=== PATIENT | female | born 1960 | race Caucasian/White ===

== ENCOUNTER → 2019-02-12 08:13 | Outpatient (CLI) | payer OTHER, SELFPAY ==
[2019-02-12 09:39] LABS: Add Manual Diff / Slide Review NO; Alanine Aminotransferase 20 IU/L (9-52); Albumin 4.2 g/dL (3.5-5.0); Albumin Globulin Ratio 1.3 (1.0-2.8); Alkaline Phosphatase 78 U/L (38-126); Aspartate Aminotransferase 25 IU/L (14-36); BUN Creatinine Ratio 15.7 (6-22); Basophils Absolute Auto 0 /uL (0-100); Basophils Percent Auto 0.4 % (0-2); Bilirubin Total 0.4 mg/dL (0.2-1.3); Blood Urea Nitrogen 11 mg/dL (7-17); Calcium 9.4 mg/dL (8.4-10.2); Carbon Dioxide 31 mmol/L (22-32); Chloride 102 mmol/L (98-107); Cholesterol 306 mg/dL (140-199); Eosinophils Absolute Auto 100 /uL (0-450); Eosinophils Percent Auto 3.3 % (2-4); Estimated Glomerular Filt Rate > 60.0 mL/min (>60); Globulin 3.3 g/dL (1.7-4.1); Glucose 90 mg/dL (70-100); HDL Cholesterol 72 mg/dL (40-60); HEMOLYSIS < 15 (0-50); Hematocrit 44.5 % (36-46); Hemoglobin 15.3 g/dL (12.0-16.0); LDL Cholesterol Calculated 205 mg/dL (<100); Lymphocytes Absolute Auto 2000 /uL (1100-4500); Lymphocytes Percent Auto 48.2 % (25-40); Mean Corpuscular HGB Conc 34.4 % (30-36); Mean Corpuscular Hemoglobin 31.4 PG (26-34); Mean Corpuscular Volume 91.3 fL (80-100); Monocytes Absolute Auto 300 /uL (0-900); Monocytes Percent Auto 7.3 % (3-14); Neutrophils Absolute Auto 1700 /uL (1500-7000); Neutrophils Percent Auto 40.8 % (50-75); Platelet Count 195 X10^3/uL (150-400); Potassium 3.9 mmol/L (3.4-5.1); Red Blood Cell Count 4.87 X10^6/uL (4.0-5.2); Red Cell Distribution Width 12.6 % (11.6-14.8); Sodium 139 mmol/L (137-145); Total Protein 7.5 g/dL (6.3-8.2); Triglycerides 145 mg/dL (35-150); White Blood Cell Count 4.1 X10^3/uL (4.5-11.0)
[2019-02-12 10:09] LABS: Thyroid Stimulating Hormone 1.63 uIU/mL (0.47-4.68)
== END ==
PROVIDERS: Family Provider Naturopath; PCP Family Medicine
DX: Z13.228 Encounter for screening for other metabolic disorders (principal); Z13.220 Encounter for screening for lipoid disorders; Z13.0 Encounter for screening for diseases of the blood and blood-forming organs and certain disorders involving the immune mechanism; Z13.29 Encounter for screening for other suspected endocrine disorder
CPT/HCPCS: 36415; 80053; 80061; 84443; 85025

== ENCOUNTER → 2019-06-11 07:48 | Outpatient (CLI) | payer OTHER, SELFPAY ==
--- NOTE | 2019-06-11 | DI.MG.S_ITS ---
BILATERAL DIGITAL SCREENING MAMMOGRAM 3D/2D WITH CAD: 06/11/2019 CLINICAL: Routine screening. Comparison is made to exams dated: 09/16/2017 mammogram, 07/09/2015 mammogram, and 06/06/2013 mammogram - [facility]. The tissue of both breasts is heterogeneously dense. This may lower the sensitivity of mammography. Current study was also evaluated with a Computer Aided Detection (CAD) system. No significant masses, calcifications, or other findings are seen in either breast. There has been no significant interval change. IMPRESSION: NEGATIVE There is no mammographic evidence of malignancy. A 1 year screening mammogram is recommended. This exam was interpreted at Station ID: [id number]. NOTE: For mammograms, a report in lay terms will be sent to the patient. Approximately 15% of breast malignancies will not be visualized mammographically. In the management of a palpable breast mass, a negative mammogram must not discourage biopsy of a clinically suspicious lesion. Electronically Signed By: Jeremie duckworth/agatha:06/11/2019 08:50:30 copy to: Jasson Arriaga letter sent: Normal Exam ACR BI-RADS Category 1: Negative [id number]
== END ==
PROVIDERS: Family Provider Naturopath; PCP Family Medicine
DX: Z12.31 Encounter for screening mammogram for malignant neoplasm of breast (principal)
CPT/HCPCS: 77063; 77067

== ENCOUNTER → 2019-08-15 12:54 | Outpatient (CLI) | payer OTHER, SELFPAY ==
--- NOTE | 2019-08-15 12:55 | DI.RAD.S_ITS ---
PROCEDURE: XR LUMBAR SPINE 2-3V INDICATIONS: fall mid lower back pain TECHNIQUE: 3 views of the lumbar spine were acquired. COMPARISON: None. FINDINGS: Bones: 5 [id number]-dhulina vertebrae are present. There is mild to moderate dextroscoliotic bony alignment centered at L2-L3. No vertebral body compression fractures. No suspicious bony lesions. Soft tissues: Overlying bowel gas pattern is normal. No suspicious soft tissue calcifications. IMPRESSION: Mild to moderate dextroscoliosis, no fracture or traumatic subluxation is found. Mild degenerative disc disease and facet osteoarthritis best seen over the middle and lower thirds of the LS spine. Dictated by: Jed Lopez M.D. on 08/15/2019 at 14:00 Approved by: Jed Lopez M.D. on 08/15/2019 at 14:01
--- NOTE | 2019-08-15 12:55 | DI.RAD.S_ITS ---
PROCEDURE: XR THORACIC SPINE 3V INDICATIONS: fall mid lower back pain TECHNIQUE: 3 views of the thoracic spine were acquired. COMPARISON: None. FINDINGS: Bones: No fractures or dislocations. No suspicious bony lesions. 12 pairs of ribs are noted, and appear intact where visualized. Soft tissues: No paravertebral stripe thickening. IMPRESSION: No trauma found. Dictated by: Jed Lopez M.D. on 08/15/2019 at 14:01 Approved by: Jed Lopez M.D. on 08/15/2019 at 14:02
== END ==
PROVIDERS: Family Provider Naturopath; PCP Family Medicine; Visit Provider Family Medicine
DX: M54.5 Low back pain (principal); M41.86 Other forms of scoliosis, lumbar region; M47.816 Spondylosis without myelopathy or radiculopathy, lumbar region; M51.36 Other intervertebral disc degeneration, lumbar region
CPT/HCPCS: 72072; 72100

== ENCOUNTER → 2020-03-06 07:03 | Outpatient (CLI) | payer OTHER, SELFPAY ==
[2020-03-06 08:24] LABS: Add Manual Diff / Slide Review NO; Basophils Absolute Auto 0 /uL (0-100); Basophils Percent Auto 0.7 % (0-2); Eosinophils Absolute Auto 200 /uL (0-450); Eosinophils Percent Auto 3.6 % (2-4); Hematocrit 43.3 % (36-46); Hemoglobin 14.9 g/dL (12.0-16.0); Lymphocytes Absolute Auto 2100 /uL (1100-4500); Lymphocytes Percent Auto 45.8 % (25-40); Mean Corpuscular HGB Conc 34.4 % (30-36); Mean Corpuscular Hemoglobin 31.2 PG (26-34); Mean Corpuscular Volume 90.9 fL (80-100); Monocytes Absolute Auto 300 /uL (0-900); Monocytes Percent Auto 7.6 % (3-14); Neutrophils Absolute Auto 1900 /uL (1500-7000); Neutrophils Percent Auto 42.3 % (50-75); Platelet Count 186 X10^3/uL (150-400); Red Blood Cell Count 4.76 X10^6/uL (4.0-5.2); Red Cell Distribution Width 13.2 % (11.6-14.8); White Blood Cell Count 4.5 X10^3/uL (4.5-11.0)
[2020-03-06 08:31] LABS: Alanine Aminotransferase 35 IU/L (<35); Albumin 4.4 g/dL (3.5-5.0); Albumin Globulin Ratio 1.4 (1.0-2.8); Alkaline Phosphatase 80 U/L (38-126); Aspartate Aminotransferase 35 IU/L (14-36); BUN Creatinine Ratio 13.9 (6-22); Bilirubin Total 0.7 mg/dL (0.2-1.3); Blood Urea Nitrogen 11 mg/dL (7-17); Calcium 9.6 mg/dL (8.4-10.2); Carbon Dioxide 31 mmol/L (22-32); Chloride 102 mmol/L (98-107); Cholesterol 307 mg/dL (140-199); Estimated Glomerular Filt Rate > 60.0 mL/min (>60); Globulin 3.1 g/dL (1.7-4.1); Glucose 87 mg/dL (80-110); HDL Cholesterol 69 mg/dL (40-60); HEMOLYSIS < 15 (0-50); LDL Cholesterol Calculated 217 mg/dL (<100); Potassium 4.1 mmol/L (3.4-5.1); Sodium 139 mmol/L (137-145); Total Protein 7.5 g/dL (6.3-8.2); Triglycerides 107 mg/dL (35-150)
[2020-03-06 09:13] LABS: Thyroid Stimulating Hormone 2.15 uIU/mL (0.47-4.68)
== END ==
PROVIDERS: Family Provider Naturopath; PCP Family Medicine
DX: Z13.228 Encounter for screening for other metabolic disorders (principal); Z13.220 Encounter for screening for lipoid disorders; Z13.0 Encounter for screening for diseases of the blood and blood-forming organs and certain disorders involving the immune mechanism; Z13.29 Encounter for screening for other suspected endocrine disorder
CPT/HCPCS: 36415; 80053; 80061; 84443; 85025

== ENCOUNTER → 2020-09-29 13:40 | Outpatient (CLI) | payer OTHER, SELFPAY ==
[2020-09-29] MEDS: COVID-19 VACC, Ad26(JANSSEN)/PF 0.5 ML IM (13:55)
== END ==
PROVIDERS: Family Provider Naturopath; PCP Family Medicine; Visit Provider Internal Medicine
DX: Z23 Encounter for immunization (principal)
CPT/HCPCS: 0031A; 91303

== ENCOUNTER → 2021-08-21 07:33 | Outpatient (CLI) | payer OTHER, SELFPAY ==
[2021-08-21 08:29] LABS: Influenza A - CEPHEID Flu A NEGATIVE (NEGATIVE); Influenza B - CEPHEID Flu B NEGATIVE (NEGATIVE)
[2021-08-21 08:30] LABS: COVID-19 CEPHEID PCR (VTM/NP) Negative (Negative)
== END ==
PROVIDERS: Family Provider Naturopath; PCP Family Medicine; Visit Provider Physician Assistant
DX: Z20.822 Contact with and (suspected) exposure to COVID-19 (principal); R51.9 Headache, unspecified; R68.83 Chills (without fever)
CPT/HCPCS: 0240U

== ENCOUNTER → 2021-12-24 07:54 | Outpatient (CLI) | payer OTHER, SELFPAY ==
--- NOTE | 2021-12-24 07:56 | DI.MG.S_ITS ---
BILATERAL DIGITAL SCREENING MAMMOGRAM 3D/2D WITH CAD: 12/24/2021 CLINICAL: Routine screening. Comparison is made to exams dated: 06/11/2019 mammogram, 09/16/2017 mammogram, 07/09/2015 mammogram, and 06/06/2013 mammogram - [facility]. There are scattered fibroglandular elements in both breasts. Current study was also evaluated with a Computer Aided Detection (CAD) system. There are benign post operative findings in the right breast. No significant masses, calcifications, or other findings are seen in either breast. There has been no significant interval change. IMPRESSION: BENIGN There is no mammographic evidence of malignancy. A 1 year screening mammogram is recommended. This exam was interpreted at Station ID: [id number]. NOTE: For mammograms, a report in lay terms will be sent to the patient. Approximately 15% of breast malignancies will not be visualized mammographically. In the management of a palpable breast mass, a negative mammogram must not discourage biopsy of a clinically suspicious lesion. Electronically Signed By: Ayaan hernández/agatha:12/24/2021 09:40:25 copy to: Jasson Arriaga letter sent: Normal Exam ACR BI-RADS Category 2: Benign Finding(s) [id number]
== END ==
PROVIDERS: Family Provider Naturopath; PCP Family Medicine; Referring Provider Family Medicine; Visit Provider Family Medicine
DX: Z12.31 Encounter for screening mammogram for malignant neoplasm of breast (principal)
CPT/HCPCS: 77063; 77067

== ENCOUNTER → 2022-09-29 | Outpatient (CLI) | payer OTHER, SELFPAY ==
--- NOTE | 2022-09-29 | DI.NM.S_ITS ---
PROCEDURE: NM PET CT FUSION SKULL 2 THIGH RADIOPHARMACEUTICAL: 12.67 mCi F-18 fluorodeoxyglucose IV. INDICATIONS: STAGING ANAL CA TECHNIQUE: After intravenous administration of F-18 fluoro-deoxyglucose (FDG), noncontrast CT images were obtained for attenuation correction and anatomic localization. A series of overlapping emission PET images was then obtained. The patient's pretest fasting blood glucose level as measured by glucometer was 106 mg/dl. The area imaged spanned from the skull base, vertex to the upper thighs. COMPARISON: [facility], , MRI PELVIS W/WO CONTRAST, 09/09/2022, 14:07. [facility], , CT THORAX/ ABD/ PELVIS WITH CONTRAST, 09/09/2022, 13:33. FINDINGS: Head and neck: No soft tissue masses in the neck. No enlarged cervical or supraclavicular lymph nodes; no abnormal jose tracer uptake. Salivary glands appear normal. Left thyroid lobe demonstrates area of low attenuation and calcification. Sinuses and mastoids are clear. Thorax: No enlarged mediastinal, hilar, or axillary lymph nodes. No abnormal jose tracer uptake. No acute pulmonary opacities. No pleural effusions or pneumothorax. Heart size is normal. Trace pericardial effusion. Abdomen and pelvis: No enlarged retroperitoneal or mesenteric lymph nodes. No abnormal jose tracer uptake. There is normal heterogeneous hepatic tracer uptake. Liver is normal in size, without focal masses. The spleen is normal in size. Gallbladder is unremarkable. Pancreas is normal in morphology. No adrenal nodules. Kidneys are normal in size, without nephrolithiasis. There is mild right hydronephrosis and hydroureter. Small and large intestines are nonobstructive. Previously identified mass at the anal verge is not as well characterized on noncontrast exam. It is hypermetabolic with SUV maximum of 14.6. Colonic diverticular are present without inflammatory change. There is a hiatal hernia with a focus of increased metabolic activity, SUV maximum 5.0 Fat containing ventral hernia. Aorta and inferior vena cava are normal in size. No free fluid or air. No pelvic or inguinal adenopathy. Bladder wall is diffusely thickened and incompletely distended Bones: No abnormal osseous tracer uptake. No lytic or blastic bony lesions. IMPRESSION: Ill-defined mass of the anus with hypermetabolic activity as above consistent with known malignancy. No associated metastatic adenopathy. Mild hiatal hernia with focus of increased metabolic activity measuring 5.0. No distinct visualized mass. However, exam is limited without contrast. Further evaluation with endoscopy or upper GI is recommended to exclude underlying mass. Dictated by: Lary Boyd M.D. on 09/29/2022 at 10:43 Approved by: Lary Boyd M.D. on 09/29/2022 at 11:22
== END ==
LOC: DI 07:10
PROVIDERS: Family Provider Naturopath; PCP Family Medicine; Referring Provider Radiology Radiation Oncology; Visit Provider Radiology Radiation Oncology

== ENCOUNTER → 2022-11-19 14:41 | Outpatient (CLI) | payer OTHER, SELFPAY ==
[2022-11-19 20:47] LABS: Appearance Urine UA SL CLOUDY; Bilirubin Urine UA NEGATIVE (NEGATIVE); Color Urine UA YELLOW; Glucose Urine UA NEGATIVE (Negative); Ketones Urine UA 1+ (NEGATIVE); Leukocyte Esterase Urine UA 3+ (NEGATIVE); Nitrite Urine UA POSITIVE (Negative); Occult Blood Urine UA 3+ (Negative); Protein Urine UA 1+ (Negative); Urobilinogen Urine UA 0.2 E.U./dL (0.2)
[2022-11-19 20:55] LABS: Bacteria Urine Moderate (10-30); Culture Indicated Urine Specimen Cultured; RBC Urine 30-100/HPF (0-5/HPF); Squamous Epithelial Cell Urine 1-5 /HPF (0-5/HPF); WBC Urine 30-100/HPF (0-5/HPF)
== END ==
PROVIDERS: Family Provider Naturopath; PCP Family Medicine; Referring Provider Radiology Therapeutic Radiology; Visit Provider Radiology Therapeutic Radiology
DX: C21.0 Malignant neoplasm of anus, unspecified (principal); R30.0 Dysuria
CPT/HCPCS: 81001; 87077; 87086; 87186

== ENCOUNTER 2022-11-23 15:07 | Inpatient (IN) | payer OTHER, SELFPAY ==
[2022-11-23] VITALS (10 sets, daily range): BP systolic 118–160; BP diastolic 55–77; PULSE 77–127; RESP 18–19; TEMP 36.8–37.5; O2SAT 93–99; BMI 23.4
--- NOTE | 2022-11-23 15:28 | DI.RAD.S_ITS ---
PROCEDURE: XR CHEST 1V INDICATIONS: suspected sepsis TECHNIQUE: One view of the chest was acquired. COMPARISON: None. FINDINGS: Surgical changes and devices: Right chest wall port catheter, tip of which is in the mid SVC. Lungs and pleura: Lungs are clear. No pleural effusions or pneumothorax. Mediastinum: Mediastinal contours appear normal. Heart size is normal. Bones and chest wall: No suspicious bony lesions. Overlying soft tissues appear unremarkable. IMPRESSION: No acute process. Dictated by: Abhinav Dill M.D. on 11/23/2022 at 16:04 Approved by: Abhinav Dill M.D. on 11/23/2022 at 16:04
--- NOTE | 2022-11-23 16:28 | ED.FEVER ---
HPI - Fever General Chief Complaint: Fever Stated Complaint: Has cancer, labs showed infection, needs antibioti Time Seen by Provider: 11/23/22 15:39 Source: patient and family Mode of arrival: Ambulatory History of Present Illness HPI Narrative: Patient is a 62-year-old female currently undergoing radiation therapy for anal cancer presents today multidrug resistant UTI. She has been having some painful frequent urination out patient urinalysis was done which does show E coli and Pseudomonas with resistance to penicillins. She has had low-grade fever she is mildly tachycardic. She denies any cough abdominal pain nausea or vomiting. She reports that she is had 31 treatments of radiation she is due for her last and final treatment tomorrow. She is being followed by [facility]. Related Data Home Medications Medication Instructions Recorded Confirmed lorazepam 0.5 mg tablet 0.5 mg PO Q6HR 11/23/22 11/23/22 oxycodone 10 mg tablet,crush 10 mg PO BID 11/23/22 11/23/22 resistant,extended release 12 hr (OxyContin) oxycodone 5 mg tablet 10 mg PO Q4-6H 11/23/22 11/23/22 sulfamethoxazole 800 1 tab PO BID 11/23/22 11/23/22 mg-trimethoprim 160 mg tablet Allergies Allergy/AdvReac Type Severity Reaction Status Date / Time erythromycin base Allergy Severe heart Verified 11/23/22 15:26 [ERYTHROMYCIN BASE] racing, SOB ciprofloxacin [From Cipro] AdvReac Severe tendon Verified 11/23/22 15:27 inflammation Review of Systems Review of Systems ROS Unobtainable: All systems reviewed & are unremarkable except as noted in HPI and below Patient History Medical History Chicken pox (~1966) Foot pain (~1993) Kidney stones Surgical History Status post dilation and curettage (~1981) Status post dilation and curettage (~1988) Family History Father Heart disease Hypertension Mother Skin cancer Social History marital status: Smoking Status: Never smoker alcohol intake: current (ON OCCASION ) substance use type: does not use Smoking Status: Never smoker alcohol intake frequency: other Substance Use Type: does not use Exam Initial Vital Signs Initial Vital Signs: Vital Signs Temperature 99.5 F 11/23/22 15:20 Pulse Rate 127 H 11/23/22 15:20 Respiratory Rate 18 11/23/22 15:20 Blood Pressure 152/70 H 11/23/22 15:20 Pulse Oximetry 97 11/23/22 15:20 Oxygen Delivery Method Room Air 11/23/22 15:20 GENERAL: Alert slightly anxious 62-year-old female HEENT: Head atraumatic,EOMI, pupils reactive, face symmetric, moist mucous membranes CARDIOVASCULAR: Tachycardic regular no murmurs RESPIRATORY: Breath sounds equal bilaterally, no wheezes rales or rhonchi. ABDOMEN: Soft, nontender. Normoactive bowel sounds all 4 quadrants. No guarding or rebound. EXTREMITIES: Normal range of motion, no clubbing or edema. Neurovascularly intact NEUROLOGICAL: Alert and oriented x4.Normal gait and speech. SKIN: Warm, dry, no laceration, no petechiae, no rashes or lesions. Course Orders Ordered: ED Orders 11/23/22 15:28 XR chest 1V Stat EKG-12 Lead Stat 11/23/22 16:49 Complete Blood Count AUTO DIFF Stat Comprehensive Metabolic Panel Stat Lactate (Lactic Acid) Stat Lipase Stat PTT Partial Thromboplastin Marquis Stat Procalcitonin Stat Prothrombin Time INR Stat 11/23/22 16:56 Blood Culture Stat 11/23/22 18:57 Urinalysis and Microscopic Stat 11/24/22 05:00 BMP [Basic Metabolic Panel] DAILY CBC Auto Diff [Complete Blood Count AUTO DIFF] DAILY 11/25/22 05:00 BMP [Basic Metabolic Panel] DAILY CBC Auto Diff [Complete Blood Count AUTO DIFF] DAILY 11/26/22 05:00 BMP [Basic Metabolic Panel] DAILY CBC Auto Diff [Complete Blood Count AUTO DIFF] DAILY Acetaminophen (Acetaminophen 325 Mg Tablet) 650 mg PO Q6H PRN PRN Reason: Fever/Mild Pain (1-3) Enoxaparin Sodium (Enoxaparin 40 Mg/0.4 Ml Syringe) 40 mg SUBCUT DAILY GER Cefepime HCl 2 gm/ Sodium (Chloride) 100 mls @ 200 mls/hr IV Q12H GER Lorazepam (Lorazepam 0.5 Mg Tablet) 0.5 mg PO Q6HR PRN PRN Reason: anxiety Melatonin (Melatonin 3 Mg Tablet) 6 mg PO BEDTIME PRN PRN Reason: Insomnia Naloxone HCl (Naloxone 0.4 Mg/Ml Vial) 0.2 mg IV Q2MIN PRN PRN Reason: Opiate Reversal Ondansetron HCl (Ondansetron 4 Mg Odt) 4 mg SL NOW PRN PRN Reason: Nausea And Vomiting Ondansetron HCl (Ondansetron 4 Mg/2 Ml Inj) 4 mg IV NOW PRN PRN Reason: Nausea And Vomiting Oxycodone HCl (Oxycodone Ir 10 Mg Tablet) 10 mg PO Q4H PRN PRN Reason: Pain, Severe (7-10) Oxycodone HCl (Oxycodone Er 10 Mg Tab) 10 mg PO Q12H GER Polyethylene Glycol (Polyethylene Glycol 3350 17 Gm Powd.Pack) 17 gm PO DAILY PRN PRN Reason: Constipation Sennosides (Sennosides 8.6 Mg Tablet) 8.6 mg PO BID PRN PRN Reason: Constipation Discontinued Medications Sodium Chloride (Normal Saline 0.9%) 1,000 mls @ 1,000 mls/hr IV BOLUS ONE Stop: 11/23/22 16:27 Last Infusion: 11/23/22 19:00 Dose: 0 mls/hr Documented By: Admin: 11/23/22 17:32 Dose: 1,000 mls/hr Documented By: WILLOW Cefepime HCl 2 gm/ Sodium (Chloride) 100 mls @ 200 mls/hr IV NOW ONE Stop: 11/23/22 16:29 Last Infusion: 11/23/22 18:58 Dose: 0 mls/hr Documented By: Admin: 11/23/22 17:40 Dose: 200 mls/hr Documented By: SPF Ertapenem 0.5 gm/ Sodium (Chloride) 100 mls @ 200 mls/hr IV NOW ONE Stop: 11/23/22 18:15 Ertapenem 1 gm/ Sodium (Chloride) 100 mls @ 200 mls/hr IV NOW ONE Stop: 11/23/22 18:16 Lidocaine (Lidocaine 5% Oint 35 Gm) 1 applic TOP NOW ONE Stop: 11/23/22 17:13 Last Admin: 11/23/22 17:33 Dose: 1 applic Documented By: WILLOW Lorazepam (Lorazepam 0.5 Mg Tablet) 0.5 mg PO NOW ONE Stop: 11/23/22 16:38 Last Admin: 11/23/22 17:05 Dose: 0.5 mg Documented By: WILLOW Potassium Chloride (Potassium Chloride 20 Meq Tab) 40 meq PO NOW ONE Stop: 11/23/22 18:56 Vital Signs Vital signs: Vital Signs - 8 hr 11/23/22 15:20 11/23/22 16:51 11/23/22 17:03 Temperature 99.5 F Pulse Rate 127 H 90 77 Respiratory Rate 18 Blood Pressure 152/70 H Pulse Oximetry 97 97 93 Oxygen Delivery Method Room Air 11/23/22 17:30 11/23/22 17:36 11/23/22 17:36 Temperature Pulse Rate 103 H 106 H Respiratory Rate Blood Pressure 155/77 H Pulse Oximetry 98 99 Oxygen Delivery Method Room Air MDM - Fever Lab Data 11/23/22 16:49 11/23/22 16:49 Labs: Lab Results 11/23/22 11/23/22 11/23/22 Range/Units 16:49 16:49 16:49 WBC 2.3 L (4.5-11.0) X10^3/uL RBC 3.66 L (4.0-5.2) X10^6/uL Hgb 11.9 L (12.0-16.0) g/dL Hct 33.7 L (36-46) % MCV 92.2 (80-100) fL MCH 32.6 (26-34) PG MCHC 35.4 (30-36) % RDW 18.5 H (11.6-14.8) % Plt Count 253 (150-400) X10^3/uL Neut % (Auto) 58.5 (50-75) % Lymph % (Auto) 15.1 L (25-40) % [place] % (Auto) 23.0 H (3-14) % Eos % (Auto) 3.1 (2-4) % Baso % (Auto) 0.3 (0-2) % Neut # (Auto) 1300 L (7563-3210) /uL Lymph # (Auto) 300 L (1812-7809) /uL [place] # (Auto) 500 (0-900) /uL Eos # (Auto) 100 (0-450) /uL Baso # (Auto) 0 (0-100) /uL PT 12.5 (10.1-12.7) SECONDS INR 1.1 (0.9-1.3) APTT 32 (26-36) SECONDS Sodium 132 L (137-145) mmol/L Potassium 3.4 (3.4-5.1) mmol/L Chloride 99 (98-107) mmol/L Carbon Dioxide 25 (22-32) mmol/L BUN 5 L (7-17) mg/dL Creatinine 0.74 (0.52-1.04) mg/dL Estimated GFR > 60 (>60) mL/min BUN/Creatinine Ratio 6.8 (6-22) Glucose 96 (80-110) mg/dL Lactate (0.7-2.1) mmol/L Calcium 8.7 (8.4-10.2) mg/dL Total Bilirubin 0.4 (0.2-1.3) mg/dL AST 28 (14-36) IU/L ALT 28 (<35) IU/L Alkaline Phosphatase 68 (38-126) U/L Total Protein 6.6 (6.3-8.2) g/dL Albumin 3.7 (3.5-5.0) g/dL Globulin 2.9 (1.7-4.1) g/dL Albumin/Globulin Ratio 1.3 (1.0-2.8) Lipase 36 (23-300) U/L Procalcitonin 0.04 (<0.5) ng/mL 11/23/22 Range/Units 16:49 WBC (4.5-11.0) X10^3/uL RBC (4.0-5.2) X10^6/uL Hgb (12.0-16.0) g/dL Hct (36-46) % MCV (80-100) fL MCH (26-34) PG MCHC (30-36) % RDW (11.6-14.8) % Plt Count (150-400) X10^3/uL Neut % (Auto) (50-75) % Lymph % (Auto) (25-40) % [place] % (Auto) (3-14) % Eos % (Auto) (2-4) % Baso % (Auto) (0-2) % Neut # (Auto) (9771-3196) /uL Lymph # (Auto) (8355-7097) /uL [place] # (Auto) (0-900) /uL Eos # (Auto) (0-450) /uL Baso # (Auto) (0-100) /uL PT (10.1-12.7) SECONDS INR (0.9-1.3) APTT (26-36) SECONDS Sodium (137-145) mmol/L Potassium (3.4-5.1) mmol/L Chloride (98-107) mmol/L Carbon Dioxide (22-32) mmol/L BUN (7-17) mg/dL Creatinine (0.52-1.04) mg/dL Estimated GFR (>60) mL/min BUN/Creatinine Ratio (6-22) Glucose (80-110) mg/dL Lactate 1.4 (0.7-2.1) mmol/L Calcium (8.4-10.2) mg/dL Total Bilirubin (0.2-1.3) mg/dL AST (14-36) IU/L ALT (<35) IU/L Alkaline Phosphatase (38-126) U/L Total Protein (6.3-8.2) g/dL Albumin (3.5-5.0) g/dL Globulin (1.7-4.1) g/dL Albumin/Globulin Ratio (1.0-2.8) Lipase (23-300) U/L Procalcitonin (<0.5) ng/mL Imaging Data Chest x-ray: Radiologist's Impression: PROCEDURE:? XR CHEST 1V ? INDICATIONS:? suspected sepsis ? TECHNIQUE:? One view of the chest was acquired.? ? COMPARISON:? None. ? FINDINGS:? ? Surgical changes and devices:? Right chest wall port catheter, tip of which is in the mid SVC. ? Lungs and pleura:? Lungs are clear.? No pleural effusions or pneumothorax.? ? Mediastinum:? Mediastinal contours appear normal.? Heart size is normal.? ? Bones and chest wall:? No suspicious bony lesions.? Overlying soft tissues appear unremarkable.? ? IMPRESSION:? No acute process. ? ? Dictated by: Abhinav Dill M.D. on 11/23/2022 at 16:04 ? ? ECG Data Interpretation: Normal sinus rhythm rate 97 MD interval 150 QRS 76 QTC 452 sinus arrhythmia PAC noted no ST changes no priors to compare MDM Narrative Medical decision making narrative: The patient currently undergoing cancer treatment radiation for anal cancer. Mildly leukopenic with WBC count of 2.3 but not neutropenic. She is tachycardic but not hypotensive with low-grade temperature of 99.5?. She has a known UTI with symptoms of UTI. Both Pseudomonas and E coli. Would benefit from admission and IV antibiotics no sign of severe sepsis at this time. Patient and support friend quite adamant about getting all her medications and consulting her oncologist I spoke personally with ([phone]), he agreed with admission IV cefepime. Would like patient to finish her last dose of radiation this week if possible. He is happy to help coordinate outpatient IV antibiotics however at this agrees that admission is likely easiest and best for the patient The patient is agreeable to this plan. Discussion with hospitalist. Recommends ertapenem it is Q 24 hours rather than cefe[address] Dr[address] Garcia accepts patient Discharge Plan Departure Patient Disposition: Admitted as Observation Clinical Impression: UTI (urinary tract infection) Prescriptions: No Action sulfamethoxazole-trimethoprim 800-160 mg tablet 1 tab PO BID lorazepam 0.5 mg tablet 0.5 mg PO Q6HR oxycodone 5 mg tablet 10 mg PO Q4-6H oxycodone [OxyContin] 10 mg tablet,oral only,ext.rel.12 hr 10 mg PO BID Referrals: Camilla Burt PA-C [Primary Care Provider] -
[2022-11-23 17:05] LABS: Add Manual Diff / Slide Review NO; Basophils Absolute Auto 0 /uL (0-100); Basophils Percent Auto 0.3 % (0-2); Eosinophils Absolute Auto 100 /uL (0-450); Eosinophils Percent Auto 3.1 % (2-4); Hematocrit 33.7 % (36-46); Hemoglobin 11.9 g/dL (12.0-16.0); Lymphocytes Absolute Auto 300 /uL (1100-4500); Lymphocytes Percent Auto 15.1 % (25-40); Mean Corpuscular HGB Conc 35.4 % (30-36); Mean Corpuscular Hemoglobin 32.6 PG (26-34); Mean Corpuscular Volume 92.2 fL (80-100); Monocytes Absolute Auto 500 /uL (0-900); Neutrophils Absolute Auto 1300 /uL (1500-7000); Neutrophils Percent Auto 58.5 % (50-75); Platelet Count 253 X10^3/uL (150-400); Red Blood Cell Count 3.66 X10^6/uL (4.0-5.2); Red Cell Distribution Width 18.5 % (11.6-14.8); White Blood Cell Count 2.3 X10^3/uL (4.5-11.0)
[2022-11-23] MEDS: LORazepam 0.5 MG TABLET PO (17:05)
[2022-11-23 17:12] LABS: INR 1.1 (0.9-1.3); Prothrombin Time 12.5 SECONDS (10.1-12.7)
[2022-11-23 17:14] LABS: PTT Partial Thromboplastin Tim 32 SECONDS (26-36)
[2022-11-23 17:18] LABS: Lactate (Lactic Acid) 1.4 mmol/L (0.7-2.1)
[2022-11-23 17:19] LABS: Alanine Aminotransferase 28 IU/L (<35); Albumin 3.7 g/dL (3.5-5.0); Albumin Globulin Ratio 1.3 (1.0-2.8); Alkaline Phosphatase 68 U/L (38-126); Aspartate Aminotransferase 28 IU/L (14-36); BUN Creatinine Ratio 6.8 (6-22); Bilirubin Total 0.4 mg/dL (0.2-1.3); Blood Urea Nitrogen 5 mg/dL (7-17); Calcium 8.7 mg/dL (8.4-10.2); Carbon Dioxide 25 mmol/L (22-32); Chloride 99 mmol/L (98-107); Estimated Glomerular Filt Rate > 60 mL/min (>60); Globulin 2.9 g/dL (1.7-4.1); Glucose 96 mg/dL (80-110); HEMOLYSIS < 15 (0-50); Lipase 36 U/L (23-300); Potassium 3.4 mmol/L (3.4-5.1); Sodium 132 mmol/L (137-145); Total Protein 6.6 g/dL (6.3-8.2)
[2022-11-23] MEDS: SODIUM CHLORIDE 0.9% 1,000 ML 1000 ML IV (17:32)
[2022-11-23] MEDS: LIDOCAINE 5% OINT 35 GM 1 APPLIC TOP (17:33)
[2022-11-23 17:35] LABS: Procalcitonin 0.04 ng/mL (<0.5)
[2022-11-23] MEDS: CEFEPIME 2 GM in SODIUM CHLORIDE 0.9% 100 ML IV (17:40)
--- NOTE | 2022-11-23 19:02 | P.HP_ITS ---
History of Present Illness History of Present Illness Date Patient Seen: 11/23/22 Time Patient Seen: 19:02 Chief complaint: Has cancer, labs showed infection, needs antibioti Narrative: Tami Dickinson is a 62-year-old female with past medical history of anal cancer undergoing radiation treatments who was sent in by her oncologist for pseudomonal UTI. Patient notes she is been having dysuria for several days which prompted her oncologist to get a UA which showed pyuria and culture growing E coli and Pseudomonas. Pseudomonas susceptible to quinolones however p atient had tendinopathy in the past with one dose of cipro. Patient states she was supposed to get her last radiation treatment tomorrow. Patient currently denies fevers/chills, NV, CP, SOB, abd pain or diarrhea. [facility] Medical History Chicken pox (~1966) Foot pain (~1993) Kidney stones Surgical History Status post dilation and curettage (~1981) Status post dilation and curettage (~1988) Family History Father Heart disease Hypertension Mother Skin cancer Social History marital status: Smoking Status: Never smoker alcohol intake: current (ON OCCASION ) substance use type: does not use Meds Home Medications and Allergies Home Medications Medication Instructions Recorded Confirmed Type lorazepam 0.5 mg tablet 0.5 mg PO Q6HR 11/23/22 11/23/22 History oxycodone 10 mg tablet,crush 10 mg PO BID 11/23/22 11/23/22 History resistant,extended release 12 hr (OxyContin) oxycodone 5 mg tablet 10 mg PO Q4-6H 11/23/22 11/23/22 History sulfamethoxazole 800 1 tab PO BID 11/23/22 11/23/22 History mg-trimethoprim 160 mg tablet Allergies Allergy/AdvReac Type Severity Reaction Status Date / Time erythromycin base Allergy Severe heart Verified 11/23/22 15:26 [ERYTHROMYCIN BASE] racing, SOB ciprofloxacin [From Cipro] AdvReac Severe tendon Verified 11/23/22 15:27 inflammation Review of Systems Review of Systems Narrative: All other systems reviewed with the patient and are negative unless otherwise stated. Exam Vital Signs (past 8 hours): - 11/23/22 15:20 11/23/22 16:51 11/23/22 17:03 Temperature 99.5 F Pulse Rate 127 H 90 77 Respiratory Rate 18 Blood Pressure 152/70 H Pulse Oximetry 97 97 93 Oxygen Delivery Method Room Air 11/23/22 17:30 11/23/22 17:36 11/23/22 17:36 Temperature Pulse Rate 103 H 106 H Respiratory Rate Blood Pressure 155/77 H Pulse Oximetry 98 99 Oxygen Delivery Method Room Air Oxygen Delivery Method Room Air Narrative Exam Narrative: GEN: no acute distress HEENT: moist mucous membranes, PERRL NECK: trachea midline, no JVD CV: regular rate and rhythm, no murmurs PULM: clear bilaterally ABD: soft, nontender, nondistended, no organomegaly EXT: warm and well perfused with no edema NEURO: awake, alert, oriented, no focal deficits Objective Labs 11/23/22 16:49 11/23/22 16:49 Labs: Laboratory Results - last 24 hr 11/23/22 11/23/22 11/23/22 16:49 16:49 16:49 WBC 2.3 L RBC 3.66 L Hgb 11.9 L Hct 33.7 L MCV 92.2 MCH 32.6 MCHC 35.4 RDW 18.5 H Plt Count 253 Neut % (Auto) 58.5 Lymph % (Auto) 15.1 L [place] % (Auto) 23.0 H Eos % (Auto) 3.1 Baso % (Auto) 0.3 Neut # (Auto) 1300 L Lymph # (Auto) 300 L [place] # (Auto) 500 Eos # (Auto) 100 Baso # (Auto) 0 PT 12.5 INR 1.1 APTT 32 Sodium 132 L Potassium 3.4 Chloride 99 Carbon Dioxide 25 BUN 5 L Creatinine 0.74 Estimated GFR > 60 BUN/Creatinine Ratio 6.8 Glucose 96 Lactate Calcium 8.7 Total Bilirubin 0.4 AST 28 ALT 28 Alkaline Phosphatase 68 Total Protein 6.6 Albumin 3.7 Globulin 2.9 Albumin/Globulin Ratio 1.3 Lipase 36 Procalcitonin 0.04 11/23/22 16:49 WBC RBC Hgb Hct MCV MCH MCHC RDW Plt Count Neut % (Auto) Lymph % (Auto) [place] % (Auto) Eos % (Auto) Baso % (Auto) Neut # (Auto) Lymph # (Auto) [place] # (Auto) Eos # (Auto) Baso # (Auto) PT INR APTT Sodium Potassium Chloride Carbon Dioxide BUN Creatinine Estimated GFR BUN/Creatinine Ratio Glucose Lactate 1.4 Calcium Total Bilirubin AST ALT Alkaline Phosphatase Total Protein Albumin Globulin Albumin/Globulin Ratio Lipase Procalcitonin Assessment & Plan Assessment & Plan narrative: # polymicrobial UTI with pseudomonas -urine culture growing E. coli and pseudomonas -unable to take oral abx due to history of tendinopathy with quinolones -continue cefepime 2g q12h x3 days. Can try to setup outpatient ertapenem 1g daily through [facility]. -no fever/chills, leukocytosis to suggest pyelo -f/u blood cultures # hyponatremia -Na 132 -monitor # rectal cancer -currently on radiation treatments, with last dose scheduled for 11/24 -followed by Dr. Washington oncology -continue oxy 10mg q4h PRN and schedule oxycontin 10mg BID # anxiety -continue ativan po PRN Code status is full code. COVID negative. DVT prophylaxis with Lovenox. Proxy is friend Reyna. I have reviewed home meds and used all available resources to reconcile the home meds. This patient will be admitted as inpatient and will require greater than 2 midnights of hospital time to treat multidrug resistant UTI.
[2022-11-23 20:20] LABS: Appearance Urine UA CLEAR; Bilirubin Urine UA NEGATIVE (NEGATIVE); Color Urine UA YELLOW; Glucose Urine UA NEGATIVE (Negative); Ketones Urine UA NEGATIVE (NEGATIVE); Leukocyte Esterase Urine UA 1+ (NEGATIVE); Nitrite Urine UA NEGATIVE (Negative); Occult Blood Urine UA NEGATIVE (Negative); Protein Urine UA NEGATIVE (Negative); Specific Gravity Urine UA <=1.005 (1.000-1.035); Urobilinogen Urine UA 0.2 E.U./dL (0.2)
[2022-11-23 20:28] LABS: Bacteria Urine Occasional (0-1); Culture Indicated Urine Specimen Cultured; RBC Urine 0-1/HPF (0-5/HPF); Squamous Epithelial Cell Urine 0-1 /HPF (0-5/HPF); Transitional Epi Cells Urine 0-1/HPF (0-5/HPF); WBC Urine 1-5/HPF (0-5/HPF)
[2022-11-23] MEDS: POTASSIUM CHLORIDE 20 MEQ TAB 40 MEQ PO (21:16)
[2022-11-23] MEDS: polyethylene glycoL 3350 17 GM POWD.PACK PO (21:17)
[2022-11-23] MEDS: OXYCODONE IR 10 MG TABLET PO (21:34)
[2022-11-23 23:26] LABS: MRSA (Nasal) PCR Not Detected (Not Detect)
[2022-11-24] MEDS: OXYCODONE IR 10 MG TABLET PO ×6 (02:06→21:49)
[2022-11-24 04:00] VITALS: BP 144/78; PULSE 86; RESP 17; TEMP 36.1; O2SAT 98
[2022-11-24 04:23] VITALS: BP 144/73; PULSE 86; O2SAT 98
[2022-11-24] MEDS: LORazepam 0.5 MG TABLET PO ×4 (04:36→21:49)
[2022-11-24] MEDS: CEFEPIME 2 GM in SODIUM CHLORIDE 0.9% 100 ML IV ×2 (04:38→16:09)
[2022-11-24 05:48] LABS: Hematocrit 30.8 % (36-46); Hemoglobin 10.9 g/dL (12.0-16.0); Mean Corpuscular HGB Conc 35.2 % (30-36); Mean Corpuscular Hemoglobin 32.7 PG (26-34); Mean Corpuscular Volume 92.9 fL (80-100); Platelet Count 237 X10^3/uL (150-400); Red Blood Cell Count 3.32 X10^6/uL (4.0-5.2); Red Cell Distribution Width 18.6 % (11.6-14.8)
[2022-11-24 05:56] LABS: BUN Creatinine Ratio 6.6 (6-22); Blood Urea Nitrogen 5 mg/dL (7-17); Calcium 8.6 mg/dL (8.4-10.2); Carbon Dioxide 28 mmol/L (22-32); Chloride 106 mmol/L (98-107); Estimated Glomerular Filt Rate > 60 mL/min (>60); Glucose 81 mg/dL (80-110); HEMOLYSIS < 15 (0-50); Sodium 137 mmol/L (137-145)
[2022-11-24 06:20] LABS: White Blood Cell Count 1.7 X10^3/uL (4.5-11.0)
[2022-11-24 06:21] LABS: Add Manual Diff / Slide Review YES
--- NOTE | 2022-11-24 06:23 | PC.NURSE ---
Provider notified of critical white blood cell count of 1.7 this morning. No new orders.
--- NOTE | 2022-11-24 06:23 | PC.ADMIT ---
[email or web address] [address] [place] [address] Admission Note: The patient,Tami Dickinson,62 y/o, was given written information regarding hospital policies, unit procedures and contact persons. Patient's smoking status: Never smoker. Vital Signs - 8 hr 11/24/22 04:00 Temperature 97.0 F L Pulse Rate 86 Respiratory Rate 17 Blood Pressure 144/78 H Pulse Oximetry 98 Pt arrived to the unit from the ED. A/Ox4, somewhat forgetful or slow to respond. Lungs clear, on RA. PPP, no edema and VSS. Afebrile. Mobilizes independently. Skin intact. [place] area, specifically near her anus, is very red and excoriated, possibly r/t radiation, possibly a burn. Pt uses a portable sitz bath several times a day and only wipes with a water spray bottle. She was provided a spray bottle type device to use while hospitalized. She brought in her own sitz bath. Denies pain. Uses call light appropriately. Tolerates antibiotics well. Pain managed with current orders.
[2022-11-24 06:56] LABS: Anisocytosis 1+; Neutrophils Absolute Manual 1122 /uL (3000-5900); Nucleated Red Blood Cells 1 #/Diff; Total Cells Counted 100
[2022-11-24] MEDS: OXYCODONE ER 10 MG TAB PO ×2 (07:24→19:30)
[2022-11-24] MEDS: ENOXAPARIN 40 MG/0.4 ML SYRINGE SUBCUT (08:00)
[2022-11-24 08:02] LABS: COVID19 - ADMIT (NP swab/PCR) Negative (Negative)
--- NOTE | 2022-11-24 08:31 | P.PN_ITS ---
Subjective Subjective Interval history: Patient feeling tired today. Spoke with her rad-onc doctor who is rearranging her final radiation dose. Needs 2 more days of IV cefepime which was explained to patient. Exam Vital Signs (past 8 hours): - 11/24/22 04:00 Temperature 97.0 F L Pulse Rate 86 Respiratory Rate 17 Blood Pressure 144/78 H Pulse Oximetry 98 Oxygen Delivery Method Room Air Narrative Exam Narrative: GEN: no acute distress, tired HEENT: moist mucous membranes, PERRL NECK: trachea midline, no JVD CV: regular rate and rhythm, no murmurs PULM: clear bilaterally ABD: soft, nontender, nondistended, no organomegaly EXT: warm and well perfused with no edema NEURO: awake, alert, oriented, no focal deficits Objective Labs 11/24/22 04:27 11/24/22 04:27 Labs: Laboratory Results - last 24 hr 11/23/22 11/23/22 11/23/22 16:49 16:49 16:49 WBC 2.3 L RBC 3.66 L Hgb 11.9 L Hct 33.7 L MCV 92.2 MCH 32.6 MCHC 35.4 RDW 18.5 H Plt Count 253 Neut % (Auto) 58.5 Lymph % (Auto) 15.1 L [place] % (Auto) 23.0 H Eos % (Auto) 3.1 Baso % (Auto) 0.3 Neut # (Auto) 1300 L Lymph # (Auto) 300 L [place] # (Auto) 500 Eos # (Auto) 100 Baso # (Auto) 0 Total Counted Seg Neutrophils % Lymphocytes % (Manual) Atypical Lymphs % Monocytes % (Manual) Eosinophils % (Manual) Neutrophils # (Manual) Nucleated RBCs RBC Morphology Anisocytosis PT 12.5 INR 1.1 APTT 32 Sodium 132 L Potassium 3.4 Chloride 99 Carbon Dioxide 25 BUN 5 L Creatinine 0.74 Estimated GFR > 60 BUN/Creatinine Ratio 6.8 Glucose 96 Lactate Calcium 8.7 Total Bilirubin 0.4 AST 28 ALT 28 Alkaline Phosphatase 68 Total Protein 6.6 Albumin 3.7 Globulin 2.9 Albumin/Globulin Ratio 1.3 Lipase 36 Procalcitonin 0.04 Urine Color Urine Appearance Urine pH Ur Specific [place] Urine Protein Urine Glucose (UA) Urine Ketones Urine Occult Blood Urine Nitrate Urine Bilirubin Urine Urobilinogen Ur Leukocyte Esterase Urine RBC Urine WBC Ur Squamous Epith Cells Ur Transition Epith Cell Urine Bacteria Ur Culture Indicated? Nasal Screen MRSA (PCR) SARS-CoV-2 (PCR) 11/23/22 11/23/22 11/23/22 16:49 17:13 20:20 WBC RBC Hgb Hct MCV MCH MCHC RDW Plt Count Neut % (Auto) Lymph % (Auto) [place] % (Auto) Eos % (Auto) Baso % (Auto) Neut # (Auto) Lymph # (Auto) [place] # (Auto) Eos # (Auto) Baso # (Auto) Total Counted Seg Neutrophils % Lymphocytes % (Manual) Atypical Lymphs % Monocytes % (Manual) Eosinophils % (Manual) Neutrophils # (Manual) Nucleated RBCs RBC Morphology Anisocytosis PT INR APTT Sodium Potassium Chloride Carbon Dioxide BUN Creatinine Estimated GFR BUN/Creatinine Ratio Glucose Lactate 1.4 Calcium Total Bilirubin AST ALT Alkaline Phosphatase Total Protein Albumin Globulin Albumin/Globulin Ratio Lipase Procalcitonin Urine Color Yellow Urine Appearance Clear Urine pH 7.0 Ur Specific [place] <=1.005 Urine Protein Negative Urine Glucose (UA) Negative Urine Ketones Negative Urine Occult Blood Negative Urine Nitrate Negative Urine Bilirubin Negative Urine Urobilinogen 0.2 Ur Leukocyte Esterase 1+ H Urine RBC 0-1/hpf D Urine WBC 1-5/hpf Ur Squamous Epith Cells 0-1 /hpf Ur Transition Epith Cell 0-1/hpf Urine Bacteria Occasional (0-1) Ur Culture Indicated? Specimen cultured Nasal Screen MRSA (PCR) Not detected SARS-CoV-2 (PCR) 11/24/22 11/24/22 11/24/22 04:27 04:27 07:40 WBC 1.7 L* RBC 3.32 L Hgb 10.9 L Hct 30.8 L MCV 92.9 MCH 32.7 MCHC 35.2 RDW 18.6 H Plt Count 237 Neut % (Auto) Not Reportable Lymph % (Auto) Not Reportable [place] % (Auto) Not Reportable Eos % (Auto) Not Reportable Baso % (Auto) Not Reportable Neut # (Auto) Lymph # (Auto) Not Reportable [place] # (Auto) Not Reportable Eos # (Auto) Baso # (Auto) Not Reportable Total Counted 100 Seg Neutrophils % 66.0 Lymphocytes % (Manual) 14.0 L Atypical Lymphs % 1.0 H Monocytes % (Manual) 18.0 H Eosinophils % (Manual) 1.0 L Neutrophils # (Manual) 1122 L Nucleated RBCs 1 H RBC Morphology See below Anisocytosis 1+ H PT INR APTT Sodium 137 Potassium 4.0 Chloride 106 Carbon Dioxide 28 BUN 5 L Creatinine 0.76 Estimated GFR > 60 BUN/Creatinine Ratio 6.6 Glucose 81 Lactate Calcium 8.6 Total Bilirubin AST ALT Alkaline Phosphatase Total Protein Albumin Globulin Albumin/Globulin Ratio Lipase Procalcitonin Urine Color Urine Appearance Urine pH Ur Specific [place] Urine Protein Urine Glucose (UA) Urine Ketones Urine Occult Blood Urine Nitrate Urine Bilirubin Urine Urobilinogen Ur Leukocyte Esterase Urine RBC Urine WBC Ur Squamous Epith Cells Ur Transition Epith Cell Urine Bacteria Ur Culture Indicated? Nasal Screen MRSA (PCR) SARS-CoV-2 (PCR) Negative PFSH Medical History Chicken pox (~1966) Foot pain (~1993) Kidney stones Surgical History Status post dilation and curettage (~1981) Status post dilation and curettage (~1988) Family History Father Heart disease Hypertension Mother Skin cancer Social History marital status: Smoking Status: Never smoker alcohol intake: current substance use type: does not use Assessment & Plan Assessment & Plan narrative: # polymicrobial UTI with pseudomonas and E. coli -urine culture from 11/19 growing E. coli and pseudomonas sensitive to cefepime, repeat urine culture on 11/23 with no growth -unable to take oral abx due to history of tendinopathy with quinolones -continue cefepime 2g q12h x3 days -no fever/chills, leukocytosis to suggest pyelo -f/u blood cultures # hyponatremia, resolved -Na 132 then improved to 137 -monitor # rectal cancer -currently on radiation treatments, with last dose scheduled for 11/24 -followed by Dr. [place] oncology -continue oxy 10mg q4h PRN and schedule oxycontin 10mg BID -rescheduled for final radiation dose on 11/26 # anxiety -continue ativan po PRN Code status is full code. COVID negative. DVT prophylaxis with Lovenox. Proxy is friend Reyna. Dispo: Home on 11/26. Quality VTE Deep Vein Thrombosis/Pulmonary Embolism Present on Admission: No
[2022-11-24] MEDS: SODIUM CHLORIDE 0.9% 1,000 ML 75 ML IV (10:01)
--- NOTE | 2022-11-24 11:52 | CM.DANOTE ---
Addendum entered by CHASE Floyd 11/24/22 14:45: ADD: Assisting CHASE Man w/Justin. Met w/patient, Pharmacist Alem and Dr Garcia in patient's room to review plan. IV abx has been switched to cefepime Q12 and runs through 523 in the AM. Patient is eager to return home but inevitably agreeable to remaining here to complete her abx course Patient's last scheduled radiation treatment is now scheduled for Tuesday afternoon at approx 1400. Patient has a friend that will drive her upon discharge from (after morning dose of IV abx) Plan: Discharge home Tuesday AM, RN Chaparro and Dr Garcia aware of plan, [facility] Tuesday No addtl needs expected from this CM team. Will continue to follow closely CHASE Kaba Original Note: DCP: CM team entered room and introduced self and role. Patient appeared A/Ox4. Patient was accompanied by friend/caregiver, Reyna León (SCOOTER). Patient is here for IV antibiotics for an infection. Patient reports being independent with ADLs and utilizes caregivers/friend for supplemental transportation needs. Patient reports no need for additional resources at this time. Insurance: 1) [employer] Permanent 2) Self Pay PCP: Camilla Burt Other Physician: Bing Guy Plan: Patient will be D/C upon finishing IV antibiotic treatment. Current plan is to finish antibiotics 11/24 and have last oncology treatment on Tuesday. CM team to continue to monitor for additional resources and needs upon discharge. CHASE Addison Discharge Planning/Care Management CM Discharge Assessment Start: 11/24/22 11:46 Freq: Status: Active Protocol: Document 11/24/22 11:46 (Rec: 11/24/22 11:52 [id number]) Discharge Planning Assessment Assigned Grocery Store Associate CHASE Addison DPOA/Assigned Designee Name Reyna León (friend) Contact Information Advance Directives? Yes Advance Directives on File No History Provided By Patient,Friend,Medical Record Has Patient been admitted in last 30 No days? Prior Living Arrangements House Type of transporation used prior to Relies on Others admit Independent with ADL's Yes Is patient alert and oriented? Yes Caregiver for Another No Comment Oncology Care for cancer treatment. Barriers to Discharge No Discharge Plan Home Transportation Arrangement Caregiver will transport in POV. Whiteboard Updated in Patient Room with Yes name and ext. # of Grocery Store Associate Review Status In Process Next Review Type Continued Stay Review
[2022-11-24 12:14] VITALS: BP 149/67; PULSE 93; RESP 17; TEMP 36.3; O2SAT 96
[2022-11-24] MEDS: ONDANSETRON 4 MG/2 ML INJ IV (12:14)
[2022-11-24 20:00] VITALS: BP 157/82; PULSE 77; RESP 17; TEMP 36.8; O2SAT 98
[2022-11-25] MEDS: OXYCODONE IR 10 MG TABLET PO ×6 (02:38→22:24)
[2022-11-25 04:00] VITALS: BP 123/75; PULSE 82; RESP 17; TEMP 36.6; O2SAT 97
[2022-11-25] MEDS: LORazepam 0.5 MG TABLET PO ×5 (04:29→22:24)
[2022-11-25 04:57] LABS: BUN Creatinine Ratio 6.9 (6-22); Blood Urea Nitrogen 5 mg/dL (7-17); Calcium 8.4 mg/dL (8.4-10.2); Carbon Dioxide 28 mmol/L (22-32); Chloride 106 mmol/L (98-107); Estimated Glomerular Filt Rate > 60 mL/min (>60); Glucose 82 mg/dL (80-110); HEMOLYSIS < 15 (0-50); Potassium 4.1 mmol/L (3.4-5.1); Sodium 135 mmol/L (137-145)
[2022-11-25] MEDS: CEFEPIME 2 GM in SODIUM CHLORIDE 0.9% 100 ML IV ×2 (05:12→16:53)
[2022-11-25 06:48] LABS: Hematocrit 31.1 % (36-46); Hemoglobin 10.9 g/dL (12.0-16.0); Mean Corpuscular HGB Conc 35.1 % (30-36); Mean Corpuscular Hemoglobin 32.6 PG (26-34); Mean Corpuscular Volume 92.9 fL (80-100); Platelet Count 222 X10^3/uL (150-400); Red Blood Cell Count 3.35 X10^6/uL (4.0-5.2); Red Cell Distribution Width 18.6 % (11.6-14.8)
[2022-11-25 06:50] LABS: Add Manual Diff / Slide Review YES; White Blood Cell Count 1.5 X10^3/uL (4.5-11.0)
[2022-11-25 07:09] LABS: Anisocytosis 2+; Neutrophils Absolute Manual 945 /uL (3000-5900); Total Cells Counted 100
[2022-11-25] MEDS: OXYCODONE ER 10 MG TAB PO ×2 (07:25→19:28)
[2022-11-25] MEDS: ONDANSETRON 4 MG ODT SL (07:26)
--- NOTE | 2022-11-25 08:32 | PM.PN.1 ---
Subjective Subjective Interval history: Patient tearful today because she feels overwhelmed and anxious. Exam Vital Signs (past 8 hours): - 11/25/22 04:00 Temperature 97.8 F Pulse Rate 82 Respiratory Rate 17 Blood Pressure 123/75 Pulse Oximetry 97 Oxygen Delivery Method Room Air Oxygen Flow Rate 0 Narrative Exam Narrative: GEN: no acute distress, anxious and tearful HEENT: moist mucous membranes, PERRL NECK: trachea midline, no JVD CV: regular rate and rhythm, no murmurs PULM: clear bilaterally ABD: soft, nontender, nondistended, no organomegaly EXT: warm and well perfused with no edema NEURO: awake, alert, oriented, no focal deficits Objective Labs 11/25/22 04:23 11/25/22 04:23 Labs: Laboratory Results - last 24 hr 11/25/22 11/25/22 04:23 04:23 WBC 1.5 L* RBC 3.35 L Hgb 10.9 L Hct 31.1 L MCV 92.9 MCH 32.6 MCHC 35.1 RDW 18.6 H Plt Count 222 Neut % (Auto) Not Reportable Lymph % (Auto) Not Reportable [place] % (Auto) Not Reportable Eos % (Auto) Not Reportable Baso % (Auto) Not Reportable Lymph # (Auto) Not Reportable [place] # (Auto) Not Reportable Baso # (Auto) Not Reportable Total Counted 100 Seg Neutrophils % 63.0 Lymphocytes % (Manual) 12.0 L Atypical Lymphs % 1.0 H Monocytes % (Manual) 15.0 H Eosinophils % (Manual) 8.0 H Basophils % (Manual) 1.0 Neutrophils # (Manual) 945 L RBC Morphology See below Anisocytosis 2+ H Sodium 135 L Potassium 4.1 Chloride 106 Carbon Dioxide 28 BUN 5 L Creatinine 0.72 Estimated GFR > 60 BUN/Creatinine Ratio 6.9 Glucose 82 Calcium 8.4 PFSH Medical History Chicken pox (~1966) Foot pain (~1993) Kidney stones Surgical History Status post dilation and curettage (~1981) Status post dilation and curettage (~1988) Family History Father Heart disease Hypertension Mother Skin cancer Social History marital status: Smoking Status: Never smoker alcohol intake: current substance use type: does not use Assessment & Plan Assessment & Plan narrative: # polymicrobial UTI with pseudomonas and E. coli -urine culture from 11/19 growing E. coli and pseudomonas sensitive to cefepime, repeat urine culture on 11/23 with no growth -unable to take oral abx due to history of tendinopathy with quinolones -continue cefepime 2g q12h x3 days -no fever/chills, leukocytosis to suggest pyelo -blood cultures NG at 48 hours # hyponatremia, resolved -Na 132 then improved to 137 -monitor # rectal cancer -currently on radiation treatments, with last dose scheduled for 11/24 -followed by Dr. [place] rad-oncology -continue oxy 10mg q4h PRN and schedule oxycontin 10mg BID -rescheduled for final radiation dose on 11/26 at 2:30pm # anxiety -continue ativan po PRN Code status is full code. COVID negative. DVT prophylaxis with Lovenox. Proxy is friend Reyna. Dispo: Home morning of 11/26. Quality VTE Deep Vein Thrombosis/Pulmonary Embolism Present on Admission: No
[2022-11-25 12:00] VITALS: BP 118/56; PULSE 82; RESP 17; TEMP 36.5; O2SAT 97
--- NOTE | 2022-11-25 15:46 | CM.DPC ---
DCP Cont: Patient's friend, Reyna, called, who is main contact. She just wanted to ensure that patient will be discharged early tomorrow, to make he Tuesday radiation appointment. Confirmed that she had spoken to hospitalist already, and let her know that this [place] estate planner will also remind hospitalist. P: DCP to continue to follow. Plan most likely is for patient to go home tomorrow so she can make her 1420 radiation appointment. Dasia Mahoney RN/Primary Teaching Assistant
[2022-11-25 20:00] VITALS: BP 132/76; PULSE 74; RESP 17; TEMP 36.3; O2SAT 97
[2022-11-26] MEDS: SODIUM CHLORIDE 0.9% 1,000 ML 75 ML IV (01:28)
[2022-11-26] MEDS: OXYCODONE IR 10 MG TABLET PO (02:32)
[2022-11-26 04:00] VITALS: BP 134/60; PULSE 71; RESP 15; TEMP 36.1; O2SAT 99
[2022-11-26] MEDS: CEFEPIME 2 GM in SODIUM CHLORIDE 0.9% 100 ML IV (04:47)
[2022-11-26 04:52] LABS: BUN Creatinine Ratio 6.1 (6-22); Blood Urea Nitrogen 4 mg/dL (7-17); Calcium 8.5 mg/dL (8.4-10.2); Carbon Dioxide 31 mmol/L (22-32); Chloride 107 mmol/L (98-107); Estimated Glomerular Filt Rate > 60 mL/min (>60); Glucose 89 mg/dL (80-110); HEMOLYSIS < 15 (0-50); Potassium 3.9 mmol/L (3.4-5.1); Sodium 138 mmol/L (137-145)
[2022-11-26 04:56] LABS: Hematocrit 31.6 % (36-46); Hemoglobin 11.2 g/dL (12.0-16.0); Mean Corpuscular HGB Conc 35.4 % (30-36); Mean Corpuscular Hemoglobin 32.8 PG (26-34); Mean Corpuscular Volume 92.7 fL (80-100); Platelet Count 218 X10^3/uL (150-400); Red Blood Cell Count 3.41 X10^6/uL (4.0-5.2); Red Cell Distribution Width 18.3 % (11.6-14.8)
[2022-11-26 05:00] LABS: Add Manual Diff / Slide Review YES
[2022-11-26 05:02] LABS: White Blood Cell Count 1.9 X10^3/uL (4.5-11.0)
[2022-11-26] MEDS: ONDANSETRON 4 MG/2 ML INJ IV (06:12)
[2022-11-26 06:47] LABS: Neutrophils Absolute Manual 1140 /uL (3000-5900); Total Cells Counted 100
[2022-11-26 06:48] LABS: Anisocytosis 2+; Hypochromasia 2+
[2022-11-26 06:49] LABS: Microcytosis 1+
--- NOTE | 2022-11-26 07:30 | P.DS_ITS ---
History of Present Illness History of Present Illness Date Patient Seen: 11/23/22 Time Patient Seen: 19:02 Chief complaint: Has cancer, labs showed infection, needs antibioti Narrative: Tami Dickinson is a 62-year-old female with past medical history of anal cancer undergoing radiation treatments who was sent in by her oncologist for pseudomonal UTI. Patient notes she is been having dysuria for several days which prompted her oncologist to get a UA which showed pyuria and culture growing E coli and Pseudomonas. Pseudomonas susceptible to quinolones however p atient had tendinopathy in the past with one dose of cipro. Patient states she was supposed to get her last radiation treatment tomorrow. Patient currently denies fevers/chills, NV, CP, SOB, abd pain or diarrhea. Discharge Providers Provider Date of admission: 11/23/22 19:29 Discharge Date: 11/26/22 Primary care physician: Camilla Burt PA-C Consults: 11/23/22 19:34 Consult to SEXUAL ASSAULT COUNSELOR - Eyelet Cutter Routine Comment: try to setup outpatient IV abx Discharge provider: Abebe Garcia, DO Summary Hospital Course Discharge Diagnosis: # polymicrobial UTI with pseudomonas and E. coli -outpatient urine culture from 11/19 growing E. coli and pseudomonas sensitive to cefepime, repeat urine culture on 11/23 with no growth -unable to take oral abx due to history of tendinopathy with quinolones -continue cefepime 2g q12h x3 days given -no fever/chills, leukocytosis to suggest pyelo -blood cultures NG at 48 hours # hyponatremia, resolved -Na 132 then improved to 137 -monitor # rectal cancer -currently on radiation treatments, with last dose scheduled for 11/24 -followed by Dr. Washington rad-oncology -continue oxy 10mg q4h PRN and schedule oxycontin 10mg BID -rescheduled for final radiation dose on 11/26 at 2:30pm # anxiety -continue ativan po PRN Hospital Course: Admitted for 3 days of IV cefepime due to pseudomonas UTI. Completed this and repeat urine culture had no growth. Time Spent with Patient Time spent: Greater than 30 minutes Exam Vital Signs (past 8 hours): - 11/26/22 04:00 Temperature 97.0 F L Pulse Rate 71 Respiratory Rate 15 Blood Pressure 134/60 Pulse Oximetry 99 Oxygen Flow Rate 0 Oxygen Delivery Method Room Air Oxygen Flow Rate 0 Narrative Exam Narrative: GEN: no acute distress, anxious HEENT: moist mucous membranes, PERRL NECK: trachea midline, no JVD CV: regular rate and rhythm, no murmurs PULM: clear bilaterally ABD: soft, nontender, nondistended, no organomegaly EXT: warm and well perfused with no edema NEURO: awake, alert, oriented, no focal deficits Objective Labs 11/26/22 04:24 11/26/22 04:24 Labs: Laboratory Results - last 24 hr 11/26/22 11/26/22 04:24 04:24 WBC 1.9 L* RBC 3.41 L Hgb 11.2 L Hct 31.6 L MCV 92.7 MCH 32.8 MCHC 35.4 RDW 18.3 H Plt Count 218 Neut % (Auto) Not Reportable Lymph % (Auto) Not Reportable [place] % (Auto) Not Reportable Eos % (Auto) Not Reportable Baso % (Auto) Not Reportable Lymph # (Auto) Not Reportable [place] # (Auto) Not Reportable Baso # (Auto) Not Reportable Total Counted 100 Seg Neutrophils % 60.0 Lymphocytes % (Manual) 27.0 Monocytes % (Manual) 10.0 Eosinophils % (Manual) 3.0 Neutrophils # (Manual) 1140 L RBC Morphology See below Hypochromasia 2+ H Anisocytosis 2+ H Microcytosis 1+ H Sodium 138 Potassium 3.9 Chloride 107 Carbon Dioxide 31 BUN 4 L Creatinine 0.66 Estimated GFR > 60 BUN/Creatinine Ratio 6.1 Glucose 89 Calcium 8.5 [facility] Medical History Chicken pox (~1966) Foot pain (~1993) Kidney stones Surgical History Status post dilation and curettage (~1981) Status post dilation and curettage (~1988) Family History Father Heart disease Hypertension Mother Skin cancer Social History marital status: Smoking Status: Never smoker alcohol intake: current substance use type: does not use Discharge Plan Discharge Plan Patient Disposition: Home Provider Discharge Comment: You were admitted for a UTI due to pseudomonas which required IV antibiotics for 3 days. Your UTI is now fully treated. Keep in mind that in the future if you have another UTI with this bug, it may require admission to the hospital for IV antibiotics since you have an allergy to cipro which is the only oral agent that can treat pseudomonas. Discharge orders & Medications Prescriptions: Continued lorazepam 0.5 mg tablet 0.5 mg PO Q6HR oxycodone 5 mg tablet 10 mg PO Q4-6H oxycodone [OxyContin] 10 mg tablet,oral only,ext.rel.12 hr 10 mg PO BID Follow up/Referrals: Camilla Burt PA-C [Primary Care Provider] - 2 Weeks Visit Report/Discharge Packet Stand Alone Forms: Patient Portal/API, Stroke Signs & Symptoms Discharge Data Primary Care Provider: Camilla Burt Quality VTE Deep Vein Thrombosis/Pulmonary Embolism Present on Admission: No
[2022-11-26] MEDS: OXYCODONE ER 10 MG TAB PO (07:41)
== END 2022-11-26 08:30 | disposition home or self-care (01) | DRG 690 ==
LOC: ED 19:13 → ICU 11-24 08:57 → AC 11-24 12:41
PROVIDERS: Internal Medicine; Admitting Provider Student in an Organized Health Care Education/Training Program; Emergency Provider Emergency Medicine; Family Provider Naturopath; PCP Physician Assistant; Visit Provider Student in an Organized Health Care Education/Training Program
DX: N39.0 Urinary tract infection, site not specified (principal); E87.1 Hypo-osmolality and hyponatremia; C20 Malignant neoplasm of rectum; B96.20 Unspecified Escherichia coli [E. coli] as the cause of diseases classified elsewhere; B96.5 Pseudomonas (aeruginosa) (mallei) (pseudomallei) as the cause of diseases classified elsewhere; F41.9 Anxiety disorder, unspecified; Z20.822 Contact with and (suspected) exposure to COVID-19
CPT/HCPCS: 36415; 71045; 80048; 80053; 81001; 83605; 83690; 84145; 85007; 85025; 85610; 85730; 87040; 87086; 87635; 87797; 93005; 96365; 99284; C9803; J0692; J1650; J2405

== ENCOUNTER → 2022-12-15 08:02 | Outpatient (CLI) | payer OTHER, SELFPAY ==
[2022-11-23 19:36] VITALS: BMI 23.4
[2022-12-15 08:47] LABS: Add Manual Diff / Slide Review NO; Basophils Absolute Auto 0 /uL (0-100); Basophils Percent Auto 0.9 % (0-2); Eosinophils Absolute Auto 800 /uL (0-450); Eosinophils Percent Auto 17.4 % (2-4); Hematocrit 41.5 % (36-46); Hemoglobin 14.5 g/dL (12.0-16.0); Lymphocytes Absolute Auto 900 /uL (1100-4500); Mean Corpuscular HGB Conc 34.9 % (30-36); Mean Corpuscular Hemoglobin 32.2 PG (26-34); Mean Corpuscular Volume 92.2 fL (80-100); Monocytes Absolute Auto 500 /uL (0-900); Neutrophils Absolute Auto 2400 /uL (1500-7000); Neutrophils Percent Auto 52.7 % (50-75); Platelet Count 193 X10^3/uL (150-400); Red Cell Distribution Width 17.7 % (11.6-14.8); White Blood Cell Count 4.6 X10^3/uL (4.5-11.0)
[2022-12-15 09:19] LABS: Alanine Aminotransferase 25 IU/L (<35); Albumin 4.1 g/dL (3.5-5.0); Albumin Globulin Ratio 1.5 (1.0-2.8); Alkaline Phosphatase 69 U/L (38-126); Aspartate Aminotransferase 28 IU/L (14-36); BUN Creatinine Ratio 10.3 (6-22); Bilirubin Total 0.7 mg/dL (0.2-1.3); Blood Urea Nitrogen 8 mg/dL (7-17); Calcium 9.5 mg/dL (8.4-10.2); Carbon Dioxide 26 mmol/L (22-32); Chloride 104 mmol/L (98-107); Estimated Glomerular Filt Rate > 60 mL/min (>60); Globulin 2.8 g/dL (1.7-4.1); Glucose 104 mg/dL (80-110); HEMOLYSIS < 15 (0-50); Potassium 3.9 mmol/L (3.4-5.1); Sodium 138 mmol/L (137-145); Total Protein 6.9 g/dL (6.3-8.2)
== END ==
PROVIDERS: Family Provider Naturopath; PCP Physician Assistant; Referring Provider Radiology Radiation Oncology; Visit Provider Radiology Radiation Oncology
DX: C21.1 Malignant neoplasm of anal canal (principal)
CPT/HCPCS: 36415; 80053; 85025

== ENCOUNTER 2023-02-20 18:30 | Emergency (ER) | payer OTHER, SELFPAY ==
[2022-11-23 19:36] VITALS: BMI 23.4
[2023-02-20 18:44] VITALS: BP 156/74; PULSE 106; RESP 18; TEMP 36.6; O2SAT 100; BMI 22.8
--- NOTE | 2023-02-20 20:06 | ED.ABDPAIN ---
HPI - Abdominal Pain General Chief Complaint: Abdominal Pain Stated Complaint: possible C-dif Time Seen by Provider: 02/20/23 19:24 Source: patient Mode of arrival: Ambulatory History of Present Illness HPI narrative: 62-year-old female nonsmoker with history of anal cancer received 2 weeks of chemotherapy in November but had to stop due to intolerance and significant thrombocytopenia as well as radiation presents today with a chief complaint of multiple episodes of diarrhea over the past few days. She states that yesterday she had over 20 episodes of watery mucus-like stool. She had taken a few doses of Imodium but was told by her sister that she should not take that until further diagnosis is made. She had been on antibiotics for complicated UTI a few months ago but denies any travel, exposure to other ill persons or bad food. She is had fever or chills. She denies dizziness, weakness or lightheadedness. She does have some mild abdominal cramping that seems to build until she has a bowel movement at which point things improve. Related Data Home Medications Medication Instructions Recorded Confirmed lorazepam 0.5 mg tablet 0.5 mg PO Q6HR 11/23/22 11/23/22 oxycodone 10 mg tablet,crush 10 mg PO BID 11/23/22 11/23/22 resistant,extended release 12 hr (OxyContin) oxycodone 5 mg tablet 10 mg PO Q4-6H 11/23/22 11/23/22 Allergies Allergy/AdvReac Type Severity Reaction Status Date / Time erythromycin base Allergy Severe heart Verified 11/23/22 15:26 [ERYTHROMYCIN BASE] racing, SOB ciprofloxacin [From Cipro] AdvReac Severe tendon Verified 11/23/22 15:27 inflammation Review of Systems Review of Systems Narrative: GENERAL: Denies chills, fatigue, malaise, fever, sweats. HEENT: Denies sinus pain, ear pain, sore throat, difficulty swallowing, dizziness. RESPIRATORY: Denies dyspnea, cough, wheezing, hemoptysis, sputum. CARDIOVASCULAR: Denies chest pain, palpitations, orthopnea, edema, GASTROINTESTINAL: See HPI : Denies dysuria, frequency, incontinence, hematuria, urinary retention. MUSCULOSKELETAL: denies weakness, joint pain, or bony pain SKIN: Denies rash, skin lesions, or other NEUROLOGIC: Denies weakness, headache, numbness, change in speech, confusion, seizures, incoordination. PSYCHIATRIC: No concerning psychosocial issues. 12 point review of systems is negative except for those stated above Patient History Medical History Chicken pox (~1966) Foot pain (~1993) Kidney stones Surgical History Status post dilation and curettage (~1981) Status post dilation and curettage (~1988) Family History Father Heart disease Hypertension Mother Skin cancer Social History marital status: Smoking Status: Never smoker alcohol intake: current substance use type: does not use Smoking Status: Never smoker alcohol intake frequency: other Substance Use Type: does not use Exam Narrative Exam Narrative: GENERAL: [62] year old patient appears stated age. Well-developed patient, in mild distress. HEAD: Atraumatic. Normocephalic. EYES: Pupils equal round and reactive. Extraocular motions intact. No scleral icterus. No injection or drainage. ENT: Nose without bleeding, purulent drainage. Throat without erythema, tonsillar hypertrophy or exudate. Airway patent. NECK: Trachea midline. Non tender CARDIOVASCULAR: Regular rate and rhythm without murmurs, gallops, or rubs. RESPIRATORY: Clear to auscultation. Breath sounds equal bilaterally. No wheezes, rales, or rhonchi. GASTROINTESTINAL: Abdomen soft, non-tender, nondistended. EXTREMITIES: No edema or joint tenderness. BACK: Nontender without deformity or crepitance. No flank tenderness. NEURO: AOx3. SKIN: No rash or erythema of visible areas Initial Vital Signs Initial Vital Signs: Vital Signs Temperature 97.8 F 02/20/23 18:44 Pulse Rate 106 H 02/20/23 18:44 Respiratory Rate 18 02/20/23 18:44 Blood Pressure 156/74 H 02/20/23 18:44 Pulse Oximetry 100 02/20/23 18:44 Oxygen Delivery Method Room Air 02/20/23 18:44 Course Orders Ordered: ED Orders 02/20/23 20:50 Complete Blood Count AUTO DIFF Stat Comprehensive Metabolic Panel Stat GI Panel (Film Array) Stat Lactate (Lactic Acid) Stat Magnesium Stat Discontinued Medications Sodium Chloride (Normal Saline 0.9%) 1,000 mls @ 1,000 mls/hr IV BOLUS ONE Stop: 02/20/23 21:11 Last Infusion: 02/20/23 21:59 Dose: 0 mls/hr Documented By: Admin: 02/20/23 21:03 Dose: 1,000 mls/hr Documented By: JULIAN Vital Signs Vital signs: Vital Signs - 8 hr 02/20/23 23:36 Temperature 97.6 F Pulse Rate 68 Respiratory Rate 16 Blood Pressure 122/74 Pulse Oximetry 99 Oxygen Delivery Method Room Air MDM - Abdominal Pain Lab Data 02/20/23 20:50 02/20/23 20:50 Labs: Lab Results 02/20/23 02/20/23 02/20/23 Range/Units 20:50 20:50 20:50 WBC 4.3 L (4.5-11.0) X10^3/uL RBC 4.59 (4.0-5.2) X10^6/uL Hgb 14.7 (12.0-16.0) g/dL Hct 42.4 (36-46) % MCV 92.3 (80-100) fL MCH 32.0 (26-34) PG MCHC 34.6 (30-36) % RDW 13.0 (11.6-14.8) % Plt Count 207 (150-400) X10^3/uL Neut % (Auto) 56.0 (50-75) % Lymph % (Auto) 21.6 L (25-40) % Hettinger % (Auto) 10.5 (3-14) % Eos % (Auto) 11.1 H (2-4) % Baso % (Auto) 0.8 (0-2) % Neut # (Auto) 2400 (6698-2495) /uL Lymph # (Auto) 900 L (4232-5124) /uL Hettinger # (Auto) 500 (0-900) /uL Eos # (Auto) 500 H (0-450) /uL Baso # (Auto) 0 (0-100) /uL Sodium 136 L (137-145) mmol/L Potassium 3.7 (3.4-5.1) mmol/L Chloride 103 (98-107) mmol/L Carbon Dioxide 29 (22-32) mmol/L BUN 15 (7-17) mg/dL Creatinine 0.69 (0.52-1.04) mg/dL Estimated GFR > 60 (>60) mL/min BUN/Creatinine Ratio 21.7 (6-22) Glucose 104 (80-110) mg/dL Lactate 1.1 (0.7-2.1) mmol/L Calcium 9.1 (8.4-10.2) mg/dL Magnesium 2.0 (1.6-2.3) mg/dL Total Bilirubin 0.4 (0.2-1.3) mg/dL AST 35 (14-36) IU/L ALT 33 (<35) IU/L Alkaline Phosphatase 60 (38-126) U/L Total Protein 7.3 (6.3-8.2) g/dL Albumin 4.0 (3.5-5.0) g/dL Globulin 3.3 (1.7-4.1) g/dL Albumin/Globulin Ratio 1.2 (1.0-2.8) Stl C. cayetanensis PCR (Not Detect) Stool Rotavirus (PCR) (Not Detect) Stool Adenovirus (PCR) (Not Detect) Stool Astrovirus (PCR) (Not Detect) Stool Cryptosporidium PCR (Not Detect) Stl E.coli Shiga Tox PCR (Not Detect) St Sh/Enteroin Ecoli PCR (Not Detect) Stool E coli O157 PCR Stl Enterotoxigenic E PCR (Not Detect) Stool EPEC (PCR) (Not Detect) Stl E. histolytica PCR (Not Detect) Stool Giardia Lamblia PCR (Not Detect) Stool Sapovirus (PCR) (Not Detect) Stl P. shigelloides PCR (Not Detect) St Y.enterocolitica PCR (Not Detect) Stool Vibrio (PCR) (Not Detect) Stl Vibrio cholerae PCR (Not Detect) Stl Enteroaggr Ecoli PCR (Not Detect) Stl Norovirus GI/GII PCR (Not Detect) Campylobacter (PCR) (Not Detect) C. difficile Tox (PCR) (Not Detect) Salmonella (PCR) (Not Detect) 02/20/23 Range/Units 20:50 WBC (4.5-11.0) X10^3/uL RBC (4.0-5.2) X10^6/uL Hgb (12.0-16.0) g/dL Hct (36-46) % MCV (80-100) fL MCH (26-34) PG MCHC (30-36) % RDW (11.6-14.8) % Plt Count (150-400) X10^3/uL Neut % (Auto) (50-75) % Lymph % (Auto) (25-40) % Hettinger % (Auto) (3-14) % Eos % (Auto) (2-4) % Baso % (Auto) (0-2) % Neut # (Auto) (4878-0952) /uL Lymph # (Auto) (9649-9634) /uL Hettinger # (Auto) (0-900) /uL Eos # (Auto) (0-450) /uL Baso # (Auto) (0-100) /uL Sodium (137-145) mmol/L Potassium (3.4-5.1) mmol/L Chloride (98-107) mmol/L Carbon Dioxide (22-32) mmol/L BUN (7-17) mg/dL Creatinine (0.52-1.04) mg/dL Estimated GFR (>60) mL/min BUN/Creatinine Ratio (6-22) Glucose (80-110) mg/dL Lactate (0.7-2.1) mmol/L Calcium (8.4-10.2) mg/dL Magnesium (1.6-2.3) mg/dL Total Bilirubin (0.2-1.3) mg/dL AST (14-36) IU/L ALT (<35) IU/L Alkaline Phosphatase (38-126) U/L Total Protein (6.3-8.2) g/dL Albumin (3.5-5.0) g/dL Globulin (1.7-4.1) g/dL Albumin/Globulin Ratio (1.0-2.8) Stl C. cayetanensis PCR Not detected (Not Detect) Stool Rotavirus (PCR) Not detected (Not Detect) Stool Adenovirus (PCR) Not detected (Not Detect) Stool Astrovirus (PCR) Not detected (Not Detect) Stool Cryptosporidium PCR Not detected (Not Detect) Stl E.coli Shiga Tox PCR Not detected (Not Detect) St Sh/Enteroin Ecoli PCR Not detected (Not Detect) Stool E coli O157 PCR Not Reportable Stl Enterotoxigenic E PCR Not detected (Not Detect) Stool EPEC (PCR) Not detected (Not Detect) Stl E. histolytica PCR Not detected (Not Detect) Stool Giardia Lamblia PCR Not detected (Not Detect) Stool Sapovirus (PCR) Not detected (Not Detect) Stl P. shigelloides PCR Not detected (Not Detect) St Y.enterocolitica PCR Not detected (Not Detect) Stool Vibrio (PCR) Not detected (Not Detect) Stl Vibrio cholerae PCR Not detected (Not Detect) Stl Enteroaggr Ecoli PCR Not detected (Not Detect) Stl Norovirus GI/GII PCR Not detected (Not Detect) Campylobacter (PCR) Not detected (Not Detect) C. difficile Tox (PCR) Not detected (Not Detect) Salmonella (PCR) Not detected (Not Detect) Point of care testing: Urine Dip Bedside Urine Glucose Negative Bedside Urine Bilirubin - Negative Bedside Urine Ketone - Negative Urine Specific [place] 1.01 Bedside Urine Occult Blood - Negative Bedside Urine pH 6.5 Bedside Urine Protein - Negative Bedside Urine Urobilinogen - Negative Bedside Urine Nitrite - Negative Bedside Urine Leukocytes +/- 15 Esterase MDM Narrative Medical decision making narrative: CC: 62-year-old female with significant watery stools and crampy abdominal pain Complicating co-morbidities: Age, history of radiation and chemotherapy, antibiotics a few months ago Data collected from: Patient Medical records reviewed: Prior notes reviewed in our EMR Differential considered, but not limited to: Various causes of infectious diarrhea, viral versus E coli versus C diff versus other Exam documented above, pertinent findings include: Slightly tachycardic at intake but improved later in the visit. Lungs clear, no labored breathing, abdomen soft, bowel sounds present Lab Test results independently reviewed as above. Pertinent findings: No leukocytosis, left shift or signs of anemia. No electrolyte abnormalities or renal failure. GI panel negative Independently reviewed EKG as above Treatments: Saline Re-evaluations: Feeling better after fluids Discussion: Patient evaluated for possible dehydration, electrolyte abnormality and infectious source of diarrhea. Thankfully all elements of evaluation are reassuring and no abnormalities require a specific or immediate intervention Disposition: see below, along with detailed discharge instructions that have been reviewed with patient as well as indications for ED re-evaluation and additional outpatient follow up Discharge Plan Departure Patient Disposition: Home Clinical Impression: Diarrhea Instructions: Diarrhea Activity Restrictions/Additional Instructions: *You have been diagnosed with [diarrhea. As we discussed your history and physical exam are reassuring. The blood work and results of your stool are also very reassuring and there is no evidence of any infectious source such as C diff or the various E coli, norovirus rotavirus.] *What to do: *Please continue to take your regular medications as directed. [ ] New medication prescriptions sent to your pharmacy: [ ] [ ] New medication written as a paper prescription [ ] No new medications given *Please follow up with your primary care provider in 2-3 days, call for an appointment. Let them know you were seen in the Emergency Department and that we ask that you be seen in follow up. We will electronically transmit a record of today's note if your PCP is in our system *Return to Emergency Department if you should have any new, worsening or concerning symptoms, such as [fever greater than 101 F, shaking chills, worsening pain, persistent vomiting or other bothersome symptoms] Prescriptions: No Action lorazepam 0.5 mg tablet 0.5 mg PO Q6HR oxycodone 5 mg tablet 10 mg PO Q4-6H oxycodone [OxyContin] 10 mg tablet,oral only,ext.rel.12 hr 10 mg PO BID Referrals: Camilla Burt PA-C [Primary Care Provider] - Stand Alone Forms: Patient Portal/API
[2023-02-20] MEDS: SODIUM CHLORIDE 0.9% 1,000 ML 1000 ML IV (21:03)
[2023-02-20 21:15] LABS: Lactate (Lactic Acid) 1.1 mmol/L (0.7-2.1)
[2023-02-20 21:16] LABS: Alanine Aminotransferase 33 IU/L (<35); Albumin Globulin Ratio 1.2 (1.0-2.8); Alkaline Phosphatase 60 U/L (38-126); Aspartate Aminotransferase 35 IU/L (14-36); BUN Creatinine Ratio 21.7 (6-22); Bilirubin Total 0.4 mg/dL (0.2-1.3); Blood Urea Nitrogen 15 mg/dL (7-17); Calcium 9.1 mg/dL (8.4-10.2); Carbon Dioxide 29 mmol/L (22-32); Chloride 103 mmol/L (98-107); Estimated Glomerular Filt Rate > 60 mL/min (>60); Globulin 3.3 g/dL (1.7-4.1); Glucose 104 mg/dL (80-110); HEMOLYSIS 43 (0-50); Potassium 3.7 mmol/L (3.4-5.1); Sodium 136 mmol/L (137-145); Total Protein 7.3 g/dL (6.3-8.2)
[2023-02-20 21:19] LABS: Add Manual Diff / Slide Review NO; Basophils Absolute Auto 0 /uL (0-100); Basophils Percent Auto 0.8 % (0-2); Eosinophils Absolute Auto 500 /uL (0-450); Eosinophils Percent Auto 11.1 % (2-4); Hematocrit 42.4 % (36-46); Hemoglobin 14.7 g/dL (12.0-16.0); Lymphocytes Absolute Auto 900 /uL (1100-4500); Lymphocytes Percent Auto 21.6 % (25-40); Mean Corpuscular HGB Conc 34.6 % (30-36); Mean Corpuscular Volume 92.3 fL (80-100); Monocytes Absolute Auto 500 /uL (0-900); Monocytes Percent Auto 10.5 % (3-14); Neutrophils Absolute Auto 2400 /uL (1500-7000); Platelet Count 207 X10^3/uL (150-400); Red Blood Cell Count 4.59 X10^6/uL (4.0-5.2); White Blood Cell Count 4.3 X10^3/uL (4.5-11.0)
[2023-02-20 22:33] LABS: Adenovirus F 40/41 Not Detected (Not Detect); Astrovirus Not Detected (Not Detect); Campylobacter Not Detected (Not Detect); Clostridium difficile toxin AB Not Detected (Not Detect); Cryptosporidium Not Detected (Not Detect); Cyclospora cayetanensis Not Detected (Not Detect); Entamoeba histolytica Not Detected (Not Detect); Enteroaggregative E.coli Not Detected (Not Detect); Enteropathogenic E.coli Not Detected (Not Detect); Enterotoxigenic E.coli It/st Not Detected (Not Detect); Giardia lamblia Not Detected (Not Detect); Norovirus GI/GII Not Detected (Not Detect); Plesiomonsa shigelloides Not Detected (Not Detect); Rotavirus A Not Detected (Not Detect); Salmonella Not Detected (Not Detect); Sapovirus Not Detected (Not Detect); Shiga-like toxin-prod E.coli Not Detected (Not Detect); Shigella/Enteroinvasive E.coli Not Detected (Not Detect); Vibrio Not Detected (Not Detect); Vibrio cholerae Not Detected (Not Detect); Yersinia enterocolitica Not Detected (Not Detect)
[2023-02-20 23:36] VITALS: BP 122/74; PULSE 68; RESP 16; TEMP 36.4; O2SAT 99
== END 2023-02-20 23:35 | disposition home or self-care (01) ==
PROVIDERS: Emergency Provider Emergency Medicine; Family Provider Naturopath; PCP Physician Assistant
DX: R19.7 Diarrhea, unspecified (principal); R10.9 Unspecified abdominal pain
CPT/HCPCS: 36415; 80053; 81003; 83605; 83735; 85025; 87507; 96360; 99284

== ENCOUNTER → 2023-03-11 15:29 | Outpatient (CLI) | payer OTHER, SELFPAY ==
[2022-11-23 19:36] VITALS: BMI 23.4
[2023-03-11 18:14] LABS: Add Manual Diff / Slide Review NO; Basophils Absolute Auto 0 /uL (0-100); Eosinophils Absolute Auto 500 /uL (0-450); Eosinophils Percent Auto 10.8 % (2-4); Lymphocytes Absolute Auto 900 /uL (1100-4500); Lymphocytes Percent Auto 20.8 % (25-40); Mean Corpuscular HGB Conc 34.3 % (30-36); Mean Corpuscular Hemoglobin 31.4 PG (26-34); Mean Corpuscular Volume 91.7 fL (80-100); Monocytes Absolute Auto 300 /uL (0-900); Monocytes Percent Auto 8.1 % (3-14); Neutrophils Absolute Auto 2500 /uL (1500-7000); Neutrophils Percent Auto 59.3 % (50-75); Platelet Count 197 X10^3/uL (150-400); Red Blood Cell Count 4.47 X10^6/uL (4.0-5.2); Red Cell Distribution Width 13.2 % (11.6-14.8); White Blood Cell Count 4.2 X10^3/uL (4.5-11.0)
[2023-03-11 19:04] LABS: Alanine Aminotransferase 24 IU/L (<35); Albumin 3.9 g/dL (3.5-5.0); Albumin Globulin Ratio 1.4 (1.0-2.8); Alkaline Phosphatase 60 U/L (38-126); Aspartate Aminotransferase 27 IU/L (14-36); BUN Creatinine Ratio 14.8 (6-22); Bilirubin Total 0.3 mg/dL (0.2-1.3); Blood Urea Nitrogen 12 mg/dL (7-17); Calcium 9.6 mg/dL (8.4-10.2); Carbon Dioxide 30 mmol/L (22-32); Chloride 105 mmol/L (98-107); Estimated Glomerular Filt Rate > 60 mL/min (>60); Globulin 2.7 g/dL (1.7-4.1); Glucose 80 mg/dL (80-110); HEMOLYSIS < 15 (0-50); Potassium 4.5 mmol/L (3.4-5.1); Sodium 139 mmol/L (137-145); Total Protein 6.6 g/dL (6.3-8.2)
== END ==
PROVIDERS: Family Provider Physician Assistant; PCP Physician Assistant; Referring Provider Internal Medicine Medical Oncology; Visit Provider Internal Medicine Medical Oncology
DX: C21.0 Malignant neoplasm of anus, unspecified (principal)
CPT/HCPCS: 36415; 80053; 83735; 85025

== ENCOUNTER → 2023-04-14 10:20 | Outpatient (CLI) | payer OTHER, SELFPAY ==
[2022-11-23 19:36] VITALS: BMI 23.4
--- NOTE | 2023-04-14 | DI.US.S_ITS ---
PROCEDURE: US THYROID INDICATIONS: Nontoxic single thyroid nodule TECHNIQUE: Real-time scanning was performed of the thyroid gland, with image documentation. COMPARISON: None. FINDINGS: Right: Thyroid lobe measures 5.3 x 1.7 x 1.5 cm, and is homogeneous in echotexture. Left: Thyroid lobe measures 5.0 x 1.8 x 1.3 cm, and is homogenous in echotexture. Isthmus: 1.6 mm thick. Nodule number: 1 Location: Right superior Size: 7 x 6 x 4 mm Composition: Solid Echogenicity: Hypoechoic Shape: wider than tall. Margins: Smooth Echogenic foci: None Total points: 4 ACR TI-RADS category: 4 Nodule number: 2 Location: Right mid Size: 8 x 6 x 4 mm Composition: Solid Echogenicity: Hypoechoic Shape: wider than tall. Margins: Smooth Echogenic foci: Punctate Total points: 7 ACR TI-RADS category: 5 Nodule number: 3 Location: Left mid Size: 25 x 16 x 10 mm Composition: Solid Echogenicity: Hyperechoic Shape: wider than tall. Margins: Lobulated/irregular Echogenic foci: Punctate Total points: 8 ACR TI-RADS category: 5 IMPRESSION: Highly suspicious nodule on the left. Advise biopsy or FNA. Highly suspicious subcentimeter nodule on the right mid thyroid. Buys follow-up schedule as below Moderately suspicious right superior nodule. Best practice guidelines suggest no follow-up necessary ACR TI-RADS definitions and recommendations: TI-RADS 1 (benign): 0 points. FNA not needed. TI-RADS 2 (not suspicious): 2 points. FNA not needed. TI-RADS 3 (mildly suspicious): 3 points. * FNA if 2.5 cm or larger, follow up if 1.5 cm or larger (at 1, 3, and 5 years). TI-RADS 4 (moderately suspicious): 4-6 points. * FNA if 1.5 cm or larger, follow up if 1 cm or larger (at 1, 2, 3, and 5 years). TI-RADS 5 (highly suspicious): 7 points or more. * FNA if 1 cm or larger, follow up if 0.5 cm or larger (every year for 5 years). Approved by: Tab Kumar M.D. on 04/14/2023 at 15:06
== END ==
PROVIDERS: Family Provider Physician Assistant; PCP Physician Assistant; Referring Provider Radiology Radiation Oncology; Visit Provider Radiology Radiation Oncology
DX: E04.2 Nontoxic multinodular goiter (principal)
CPT/HCPCS: 76536

== ENCOUNTER → 2023-06-23 11:24 | Outpatient (CLI) | payer OTHER, SELFPAY ==
[2022-11-23 19:36] VITALS: BMI 23.4
--- NOTE | 2023-06-23 | DI.RAD.S_ITS ---
PROCEDURE: XR RIBS RT MIN 3V W CXR 1V INDICATIONS: fell 6 days ago, chest wall pain TECHNIQUE: 2 views of the right ribs were acquired, along with a single view chest. COMPARISON: None. FINDINGS: Surgical changes and devices: None. Bones and chest wall: No fractures or dislocations. No suspicious bony lesions. Overlying soft tissues appear unremarkable. Lungs and pleura: No pleural effusions or pneumothorax. Lungs appear clear. Mediastinum: Mediastinal contours appear normal. Heart size is normal. IMPRESSION: No displaced rib fracture or pneumothorax. Approved by: Tab Kumar M.D. on 06/23/2023 at 19:26
== END ==
PROVIDERS: Family Provider Physician Assistant; PCP Physician Assistant; Referring Provider Internal Medicine; Visit Provider Internal Medicine
DX: R07.89 Other chest pain (principal)
CPT/HCPCS: 71101

== ENCOUNTER → 2023-07-12 09:59 | Outpatient (CLI) | payer OTHER, SELFPAY ==
[2022-11-23 19:36] VITALS: BMI 23.4
[2023-07-12 11:08] LABS: Add Manual Diff / Slide Review NO; Basophils Absolute Auto 0 /uL (0-100); Basophils Percent Auto 0.7 % (0-2); Eosinophils Absolute Auto 200 /uL (0-450); Eosinophils Percent Auto 5.8 % (2-4); Hematocrit 37.9 % (36-46); Hemoglobin 13.2 g/dL (12.0-16.0); Lymphocytes Absolute Auto 800 /uL (1100-4500); Lymphocytes Percent Auto 21.4 % (25-40); Mean Corpuscular HGB Conc 34.9 % (30-36); Mean Corpuscular Hemoglobin 31.9 PG (26-34); Mean Corpuscular Volume 91.4 fL (80-100); Monocytes Absolute Auto 300 /uL (0-900); Monocytes Percent Auto 8.9 % (3-14); Neutrophils Absolute Auto 2400 /uL (1500-7000); Neutrophils Percent Auto 63.2 % (50-75); Platelet Count 184 X10^3/uL (150-400); Red Blood Cell Count 4.14 X10^6/uL (4.0-5.2); Red Cell Distribution Width 13.2 % (11.6-14.8); White Blood Cell Count 3.8 X10^3/uL (4.5-11.0)
[2023-07-12 12:26] LABS: Alanine Aminotransferase 35 IU/L (<35); Albumin 3.8 g/dL (3.5-5.0); Albumin Globulin Ratio 1.4 (1.0-2.8); Alkaline Phosphatase 74 U/L (38-126); Aspartate Aminotransferase 31 IU/L (14-36); BUN Creatinine Ratio 20.8 (6-22); Bilirubin Total 0.5 mg/dL (0.2-1.3); Blood Urea Nitrogen 15 mg/dL (7-17); Calcium 9.5 mg/dL (8.4-10.2); Carbon Dioxide 27 mmol/L (22-32); Chloride 103 mmol/L (98-107); Estimated Glomerular Filt Rate > 60 mL/min (>60); Globulin 2.7 g/dL (1.7-4.1); Glucose 85 mg/dL (80-110); HEMOLYSIS < 15 (0-50); Magnesium 1.7 mg/dL (1.6-2.3); Potassium 4.1 mmol/L (3.4-5.1); Sodium 136 mmol/L (137-145); Total Protein 6.5 g/dL (6.3-8.2)
== END ==
PROVIDERS: Family Provider Physician Assistant; PCP Physician Assistant; Referring Provider Internal Medicine Medical Oncology; Visit Provider Internal Medicine Medical Oncology
DX: C21.0 Malignant neoplasm of anus, unspecified (principal); E83.42 Hypomagnesemia
CPT/HCPCS: 36415; 80053; 83735; 85025

== ENCOUNTER 2023-07-14 10:30 | Outpatient (RCR) | payer OTHER, SELFPAY ==
[2022-11-23 19:36] VITALS: BMI 23.4
--- NOTE | 2023-04-14 16:00 | PT.OPPOC ---
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) Other specified disorders of the skin and subcutaneous tissue related to radiation (04/14/23) Muscle spasm of back (04/14/23) Other reduced mobility (04/14/23) Visit Care Team Role Provider Type Camilla Burt PA-C Attending Provider Advanced Tool Coordinator Family Provider Primary Care Provider Referring Provider Specialty: Medical Address: [address] [place] [address], [id number] Email: Plan Of Care PT-OP-T Assessment and Plan Start: 04/14/23 08:00 Freq: Status: Active Protocol: Document 04/14/23 08:05 [facility] (Rec: 04/14/23 09:29 [facility] [id number]) Physical Therapy Assessment Rehab Potential Rehabilitation Potential Excellent Evaluation Complexity Number of Personal Factors/Comorbidities 0 Number of Body Systems Impaired 1-2 Clinical Presentation at Evaluation Stable Impairments Impairments Activity Tolerance,Functional Activities,Functional Mobility ,Pain,Posture,Soft Tissue Mobility,Strength,Tone Other Impairments scar tissue and fascial restrictions following radiation Goals 3 Impairment decreased lumbar and hip ROM s /p radiation therapy Short Term Goal (STG) Tami is educated in a home stretching and flexibility program for the hips, low back and pelvis STG Duration 4 weeks Residential Goal (LTG) With manual therapy work to address fascial restrictions and tightness as well as work on exercises and stretches to improve ROM Tami is able to return to ROM with is WFL LTG Duration 12 weeks 2 Impairment fecal incontinence Residential Goal (LTG) With both manual therapy work to reduce scar tissue in the pelvic floor and rectum as well as strengthening for the pelvic floor Tami reports significant reduction in fecal incontinence 1 Impairment radiation induced myofascial restrictions in the low back, abdomen and pelvis limiting Tami's ability to engage in her recreational activities such as yoga Assembler Product Goal (LTG) Tami is able to return to recreational activities such as yoga and feels overall more mobility in her pelvis, abdomen, and low back LTG Duration 12 weeks Assessment Summary Assessment Tami is a 62 year old active female who presents to PT with chief complaints of decreased mobility in her low back, hips, and pelvis following 6 weeks of radiation for anal cancer. She is also experiencing fecal incontinence and pelvic floor and anal tightness and scaring . With evaluation today Tami presents with decreased mobility throughout her low back and hips. She is limited in lumbar flexion and sidebending as well has hip ROM. She presents with side spread fascial restrictions in the abdomen and sacral/pelvic region. Areas specifically with guarding include the adductor attachments to the pubic bone more so on the right side, left sided descending colon palpated on the lower left abdominal wall, posterior gluteal attachments to the sacrum and piriformis region. I did not do a pelvic examination today however Tami reports with prior exams after her radiation she was very scared. She also notes scaring in her rectum and fecal incontinence symptoms. She is working with a dietition right now for stool consistency. I did give Tami a size XS dilator today with instructions to work on inserting it and working up to 5-10 min time duration with the dilator in. She does agree to a pelvic floor exam at a later date as I feel helping her release her pelvic floor may also really help her hip and pelvic mobility. Tami would like to be able to return to her Yoga routine and be able to sleep on her sides at night without discomfort in her hips and low back. I started Tami today with education on a self colon massage and she was given stretches to help open up her hips. Tami tolerated this well. Tami is a good candidate for PT Physical Therapy Plan Frequency and Duration Frequency of Treatment 2x/Week Duration of treatment (weeks) 12 Plan of Care Start Date 04/14/23 Plan of Care End Date 07/07/23 Therapeutic Interventions Therapeutic Interventions Home Exercise Program,Joint Mobilizations,Manual Therapy, Patient/Caregiver Education, Self-Care/Home Management,Soft Tissue Mobilization, Therapeutic Exercises Modalities Biofeedback,Electric Stimulation Next Visit Focus/Plan Next Note Type Treatment Note Next Visit Plan Review stretches given at today's treatment and how xs dilator worked for Tami, work on Myofascial release of the adductor attachments to the pubic bone, visceral massage over the descending colon, gluteal release at the sacrum. Plan of Care Dates Plan of Care Start Date 04/14/23 Plan of Care End Date 07/07/23 Electronically Signed by: Veronica Viera, PT 04/19/23 2237 If you are in agreement with this Plan of Care, please return a signed and dated copy. I have reviewed this Plan of Care and certify that the skilled therapy services above are required to meet the patient?s needs. Physician Signature Date Printed Name and Credentials Clinical Instructor Signature Printed Name and Credentials
--- NOTE | 2023-04-14 16:00 | PT.OIE ---
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 Family Provider Primary Care Provider Referring Provider Specialty: Medical Address: [address] [place] [address], [facility] Email: Physical Therapy Initial Evaluation PT-OP-A Visit Information Start: 04/14/23 08:00 Freq: Status: Active Protocol: Document 04/14/23 08:05 [facility] (Rec: 04/14/23 09:22 [facility] [id number]) Out-Patient Physical Therapy Visit Information Visit Information Visit Type Initial Evaluation Visit Start Time 08:05 Visit Stop Time 08:55 Total Visit Minutes 50 Visit Number 1 Evaluation Information Evaluation Date 04/14/23 PT-OP-B Current Condition Start: 04/14/23 08:00 Freq: Status: Active Protocol: Document 04/14/23 08:05 [facility] (Rec: 04/14/23 09:22 [facility] [id number]) Current Condition History of Current Condition Onset Date November 2022 Current Complaints decreased mobility, pelvic tightness, fecal incontinence s/p radiation History of Current Condition jennifer reports she did 6 weeks of radiation at [facility] for anal cancer, she is feeling very limited afterwards , her yoga moves she did before treatment she is now unable to do, jennifer decribes her symptoms as a lack of mobility. Her radiation started in september and went 6 weeks ending November 26. Anal cancer Chemo infusion x 2 weeks due to platelets dropping so much. SHe has difficulty with things like laying on her side with knees bent to sleep and she is no longer able to rest her ankle on the opposite knee for a hip stretch. She feels tight in her low back and is no longer able to bend forward touching her hands to the floor She has pain with bowel movements and has horrible GI issues and he stool is more like ribbons and going to the bathroom multiple times per day. She is on imodium now and is seeing a dietition to help with her stool Treatment Goals Patient/Caregiver Goals Treatment goals include increasing mobility and decreasing tightness, working on scar tissue in the rectum to improve bowel movements and pelvic floor work to release tension PT-OP-F Manual Assessment Start: 04/14/23 08:00 Freq: Status: Active Protocol: Document 04/14/23 08:08 [facility] (Rec: 04/14/23 09:22 [facility] [id number]) Manual Assessments Soft Tissue Assessment Soft Tissue Mobility Assessment right adducted hypertonicity at the pubic bone atachment left greater than right side iliopsoas tightness descending colon tightness on the left side of the abdominal wall tenderness left side of the sacral GANESH's and ischium tightness right greater than left side paraspinals swelling at the L5S1 junction PT-OP-J Posture/Palpation/Skin Start: 04/14/23 08:00 Freq: Status: Active Protocol: Document 04/14/23 08:05 [facility] (Rec: 04/14/23 16:58 [facility] [id number]) Palpation Assessment Location L5-S1 and sacral base swelling Palpation Findings Edema Palpation Details edema noted at the base of the sacrum, trial of kinesiotape star pattern for swelling reduction was done today 3 Palpation Location sacral GANESH's Palpation Findings Soft Tissue Tightness,Muscle Guarding,Tenderness Palpation Details left greater than right side deep gluteal and deep pelvic floor tightness 2 Palpation Location right sided adductor guarding and spasm, proximal attachment Palpation Findings Soft Tissue Tightness,Spasm, Muscle Guarding left lateral wall of the abdomen and descending colon Palpation Findings Soft Tissue Tightness Palpation Details tenderness and myofascial tightness along the descending colon on the left side of the abdominal wall PT-OP-K Range of Motion Start: 04/14/23 16:59 Freq: Status: Active Protocol: Document 04/14/23 08:05 [facility] (Rec: 04/14/23 17:03 [facility] [id number]) Lumbar Spine Range of Motion Lumbar Spine Active Testing Position Standing Flexion 50 Lateral Flexion Left 8 Lateral Flexion Right 10 ROM Limitations Soft Tissue Tightness,Muscle Tone Comments Jennifer notes since radiation treatments she has been much tighter in her low back and hip and lacks the ROM to touch the floor with her hands. She is guarded more the right side side of the paraspinals and can feel tightness restricting her with sidebends expecially to the left Hip Goniometric Range of Motion Hip Left Hip ROM WFL No Flexion w/Knee Flexed 110 Straight Leg Raise 50 External Rotation 20 Comments pt is no longer able to rest her heel on opp knee for piriformis stretch Right Hip ROM WFL No Flexion w/Knee Flexed 105 Straight Leg Raise 55 Extension 5 External Rotation 20 Comments pt is no longer able to rest her heel on opp knee for piriformis stretch Hip ROM Limitations Hip ROM Limitations Soft Tissue Tightness, Contracture,Muscle Tone,Pain Comments right sided proximal adductor tightness following radiation treatments limits hip ROM and mobility PT-OP-Q Treatments Start: 04/14/23 13:56 Freq: Status: Active Protocol: Document 04/14/23 08:05 [facility] (Rec: 04/14/23 14:04 [facility] [id number]) Therapeutic Exercises Supine Exercises bharathi pose with pillows for pelvic floor relaxation Reps/Minutes hold 1-2 minutes iliopsoas stretch off the edge of bed Reps/Minutes hold 1-2 minutes supine modified pelvic floor squat Reps/Minutes hold 1-2 minutes Manual Therapy Treatment Manual Techniques 1 Type kinesiotape over the base of the sacrum for swelling Body Position Prone Comments pt tolerated well and was given instructions for removal if skin irritated her tissue Self-Care/Home Management Treatment Education Patient Education Home Exercise Program Other Education Jennifer was educated in ILU self massage for the colon She was given a HEP of pelvic stretches to begin opening up the hips and pelvic floor Jennifer was given a size XS dilator to begin working on a very gentle stretch for the pelvic floor PT-OP-T Assessment and Plan Start: 04/14/23 08:00 Freq: Status: Active Protocol: Document 04/14/23 08:05 [facility] (Rec: 04/14/23 09:29 [facility] [id number]) Physical Therapy Assessment Rehab Potential Rehabilitation Potential Excellent Evaluation Complexity Number of Personal Factors/Comorbidities 0 Number of Body Systems Impaired 1-2 Clinical Presentation at Evaluation Stable Impairments Impairments Activity Tolerance,Functional Activities,Functional Mobility ,Pain,Posture,Soft Tissue Mobility,Strength,Tone Other Impairments scar tissue and fascial restrictions following radiation Goals 3 Impairment decreased lumbar and hip ROM s /p radiation therapy Short Term Goal (STG) Jennifer is educated in a home stretching and flexibility program for the hips, low back and pelvis STG Duration 4 weeks [facility] Goal (LTG) With manual therapy work to address fascial restrictions and tightness as well as work on exercises and stretches to improve ROM Jennifer is able to return to ROM with is WFL LTG Duration 12 weeks 2 Impairment fecal incontinence [facility] Goal (LTG) With both manual therapy work to reduce scar tissue in the pelvic floor and rectum as well as strengthening for the pelvic floor Jennifer reports significant reduction in fecal incontinence 1 Impairment radiation induced myofascial restrictions in the low back, abdomen and pelvis limiting Jenniefr's ability to engage in her recreational activites such as yoga [facility] Goal (LTG) Jennifer is able to return to recreational activities such as yoga and feels overall more mobility in her pelvis, abdomen, and low back LTG Duration 12 weeks Assessment Summary Assessment jennifer is a 62 year old active female who presents to PT with chief compalints of decreased mobility in her low back, hips, and pelvis following 6 weeks of radiation for anal cancer. She is also experiencing fecal incontinence and pelvic floor and anal tightness and scaring . With evaluation today Jennifer presents with decreased mobility throughout her low back and hips. She is limited in lumbar flexion and sidebending as well has hip ROM. She presents with side spread fascial restrictions in the abdomen and sacral/pelvic region. Areas specifically with guarding include the adductor attachments to the pubic bone more so on the right side, left sided descending colon palpated on the lower left abdominal wall, posterior gluteal attachments to the sacrum and piriformis region. I did not do a pelvic examination today however Jennifer reports with prior exams after her radiation she was very scared. She also notes scaring in her rectum and fecal incontinence symptoms. She is working with a dietition right now for stool consistency. I did give Jennifer a size XS dilator today with instructions to work on inserting it and working up to 5-10 min time duration with the dilator in. She does agree to a pelvic floor exam at a later date as I feel helping her release her pelvic floor may also really help her hip and pelvic mobility. Jennifer would like to be able to return to her Yoga routine and be able to sleep on her sides at night without discomfort in her hips and low back. I started Jennifer today with education on a self colon massage and she was given stretches to help open up her hips. Jennifer tolerated this well. Jennifer is a good candidate for PT Physical Therapy Plan Frequency and Duration Frequency of Treatment 2x/Week Duration of treatment (weeks) 12 Plan of Care Start Date 04/14/23 Plan of Care End Date 07/07/23 Therapeutic Interventions Therapeutic Interventions Home Exercise Program,Joint Mobilizations,Manual Therapy, Patient/Caregiver Education, Self-Care/Home Management,Soft Tissue Mobilization, Therapeutic Exercises Modalities Biofeedback,Electric Stimulation Next Visit Focus/Plan Next Note Type Treatment Note Next Visit Plan Review stretches given at today's treatment and how yanet reyesator worked for Jennifer, work on Myofascial release of the adductor attachments to the pubic bone, visceral massage over the descending colon, gluteal release at the sacrum.
--- NOTE | 2023-04-26 15:45 | PT.OTN ---
Current Diagnoses Malignant neoplasm of rectum (04/26/23) Other specified disorders of the skin and subcutaneous tissue related to radiation (04/26/23) Muscle spasm of back (04/26/23) Other reduced mobility (04/26/23) Physical Therapy Treatment Note PT-OP-A Visit Information Start: 04/14/23 08:00 Freq: Status: Active Protocol: Document 04/26/23 11:12 [facility] (Rec: 04/26/23 12:06 [facility] [id number]) Out-Patient Physical Therapy Visit Information Visit Information Visit Type Treatment Note Visit Start Time 11:15 Visit Stop Time 12:00 Total Visit Minutes 45 Visit Number 2 PT-OP-B Current Condition Start: 04/14/23 08:00 Freq: Status: Active Protocol: Document 04/14/23 08:05 [facility] (Rec: 04/14/23 09:22 [facility] [id number]) Current Condition History of Current Condition Onset Date November 2022 Current Complaints decreased mobility, pelvic tightness, fecal incontinence s/p radiation History of Current Condition tami reports she did 6 weeks of radiation at [facility] for anal cancer, she is feeling very limited afterwards , her yoga moves she did before treatment she is now unable to do, tami decribes her symptoms as a lack of mobility. Her radiation started in september and went 6 weeks ending November 26. Anal cancer Chemo infusion x 2 weeks due to platelets dropping so much. SHe has difficulty with things like laying on her side with knees bent to sleep and she is no longer able to rest her ankle on the opposite knee for a hip stretch. She feels tight in her low back and is no longer able to bend forward touching her hands to the floor She has pain with bowel movements and has horrible GI issues and he stool is more like ribbons and going to the bathroom multiple times per day. She is on imodium now and is seeing a dietition to help with her stool Treatment Goals Patient/Caregiver Goals Treatment goals include increasing mobility and decreasing tightness, working on scar tissue in the rectum to improve bowel movements and pelvic floor work to release tension PT-OP-C Subjective Start: 04/14/23 08:00 Freq: Status: Active Protocol: Document 04/26/23 11:12 [facility] (Rec: 04/26/23 12:06 [facility] [id number]) OP-PT Subjective Patient Comments Patient Comments pt notes there was thyroid nodules found on her PET scan and tommorrow she has a biopsy . She was able to do her stretches and use the pillow with bharathi pose. She feels the ILU massage has been helpful with her GI issues and overall she feels she is starting to feel she is moving better Patient Reported Progress Improving PT-OP-F Manual Assessment Start: 04/14/23 08:00 Freq: Status: Active Protocol: Document 04/14/23 08:08 [facility] (Rec: 04/14/23 09:22 [facility] [id number]) Manual Assessments Soft Tissue Assessment Soft Tissue Mobility Assessment right adducted hypertonicity at the pubic bone atachment left greater than right side iliopsoas tightness descending colon tightness on the left side of the abdominal wall tenderness left side of the sacral GANESH's and ischium tightness right greater than left side paraspinals swelling at the L5S1 junction PT-OP-J Posture/Palpation/Skin Start: 04/14/23 08:00 Freq: Status: Active Protocol: Document 04/14/23 08:05 [facility] (Rec: 04/14/23 16:58 [facility] [id number]) Palpation Assessment Location L5-S1 and sacral base swelling Palpation Findings Edema Palpation Details edema noted at the base of the sacrum, trial of kinesiotape star pattern for swelling reduction was done today 3 Palpation Location sacral GANESH's Palpation Findings Soft Tissue Tightness,Muscle Guarding,Tenderness Palpation Details left greater than right side deep gluteal and deep pelvic floor tightness 2 Palpation Location right sided adductor guarding and spasm, proximal attachment Palpation Findings Soft Tissue Tightness,Spasm, Muscle Guarding left lateral wall of the abdomen and descending colon Palpation Findings Soft Tissue Tightness Palpation Details tenderness and myofascial tightness along the descending colon on the left side of the abdominal wall PT-OP-K Range of Motion Start: 04/14/23 16:59 Freq: Status: Active Protocol: Document 04/14/23 08:05 [facility] (Rec: 04/14/23 17:03 [facility] [id number]) Lumbar Spine Range of Motion Lumbar Spine Active Testing Position Standing Flexion 50 Lateral Flexion Left 8 Lateral Flexion Right 10 ROM Limitations Soft Tissue Tightness,Muscle Tone Comments Tami notes since radiation treatments she has been much tighter in her low back and hip and lacks the ROM to touch the floor with her hands. She is guarded more the right side side of the paraspinals and can feel tightness restricting her with sidebends expecially to the left Hip Goniometric Range of Motion Hip Left Hip ROM WFL No Flexion w/Knee Flexed 110 Straight Leg Raise 50 External Rotation 20 Comments pt is no longer able to rest her heel on opp knee for piriformis stretch Right Hip ROM WFL No Flexion w/Knee Flexed 105 Straight Leg Raise 55 Extension 5 External Rotation 20 Comments pt is no longer able to rest her heel on opp knee for piriformis stretch Hip ROM Limitations Hip ROM Limitations Soft Tissue Tightness, Contracture,Muscle Tone,Pain Comments right sided proximal adductor tightness following radiation treatments limits hip ROM and mobility PT-OP-Q Treatments Start: 04/14/23 13:56 Freq: Status: Active Protocol: Document 04/26/23 11:15 [facility] (Rec: 04/26/23 15:39 [facility] [id number]) Manual Therapy Treatment Soft Tissue Mobilization right sided adductor release Mobilization Type Myofascial Release Comments worked proximal attachment of the adductors on the right side ILU massage over the colon Body Position Supine Comments worked on ILU massage over the colon for improved fascial mobility Manual Techniques 1 Type kinesiotape over the base of the sacrum for swelling Body Position Prone Comments pt tolerated well and was given instructions for removal if skin irritated her tissue PT-OP-T Assessment and Plan Start: 04/14/23 08:00 Freq: Status: Active Protocol: Document 04/26/23 11:15 [facility] (Rec: 04/26/23 15:39 [facility] [id number]) Physical Therapy Assessment Assessment Summary Assessment Tami is tolerating manual therapy techniques really well . She responded well to the kinesiotape over her sacrum and is starting to feel she has a bit more mobility. Prone quad stretch causes anterior pelvic tilt so I worked on releasing her quads. Work on a home stretch for this next visit. Pt was also shown how to use miracle balls for a self release of the piriformis Physical Therapy Plan Frequency and Duration Frequency of Treatment 2x/Week Duration of treatment (weeks) 12 Plan of Care Start Date 04/14/23 Plan of Care End Date 07/07/23 Therapeutic Interventions Therapeutic Interventions Home Exercise Program,Joint Mobilizations,Manual Therapy, Patient/Caregiver Education, Self-Care/Home Management,Soft Tissue Mobilization, Therapeutic Exercises Modalities Biofeedback,Electric Stimulation Next Visit Focus/Plan Next Note Type Treatment Note Next Visit Plan continue MFR treatments, give pt a quad stretch for home either in prone or sidelying, begin pelvic floor release if Tami is ready to start that next visit
--- NOTE | 2023-05-03 14:46 | PT.OTN ---
Current Diagnoses Malignant neoplasm of rectum (05/03/23) Other specified disorders of the skin and subcutaneous tissue related to radiation (05/03/23) Muscle spasm of back (05/03/23) Other reduced mobility (05/03/23) Physical Therapy Treatment Note PT-OP-A Visit Information Start: 04/14/23 08:00 Freq: Status: Active Protocol: Document 05/03/23 10:29 [facility] (Rec: 05/03/23 11:18 [facility] [id number]) Out-Patient Physical Therapy Visit Information Visit Information Visit Type Treatment Note Visit Start Time 10:30 Visit Stop Time 11:15 Total Visit Minutes 45 Visit Number 3 Evaluation Information Evaluation Date 04/14/23 PT-OP-B Current Condition Start: 04/14/23 08:00 Freq: Status: Active Protocol: Document 04/14/23 08:05 [facility] (Rec: 04/14/23 09:22 [facility] [id number]) Current Condition History of Current Condition Onset Date November 2022 Current Complaints decreased mobility, pelvic tightness, fecal incontinence s/p radiation History of Current Condition tami reports she did 6 weeks of radiation at [facility] for anal cancer, she is feeling very limited afterwards , her yoga moves she did before treatment she is now unable to do, tami decribes her symptoms as a lack of mobility. Her radiation started in september and went 6 weeks ending November 26. Anal cancer Chemo infusion x 2 weeks due to platelets dropping so much. SHe has difficulty with things like laying on her side with knees bent to sleep and she is no longer able to rest her ankle on the opposite knee for a hip stretch. She feels tight in her low back and is no longer able to bend forward touching her hands to the floor She has pain with bowel movements and has horrible GI issues and he stool is more like ribbons and going to the bathroom multiple times per day. She is on imodium now and is seeing a dietition to help with her stool Treatment Goals Patient/Caregiver Goals Treatment goals include increasing mobility and decreasing tightness, working on scar tissue in the rectum to improve bowel movements and pelvic floor work to release tension PT-OP-C Subjective Start: 04/14/23 08:00 Freq: Status: Active Protocol: Document 05/03/23 10:29 [facility] (Rec: 05/03/23 11:18 [facility] [id number]) OP-PT Subjective Patient Comments Patient Comments pt notes her biopsy came back normal. SHe also ordered miracle balls and feel they really helped to sit on them as it helped to open up her pelvic floor. She was sore for a day PT-OP-F Manual Assessment Start: 04/14/23 08:00 Freq: Status: Active Protocol: Document 04/14/23 08:08 [facility] (Rec: 04/14/23 09:22 [facility] [id number]) Manual Assessments Soft Tissue Assessment Soft Tissue Mobility Assessment right adducted hypertonicity at the pubic bone atachment left greater than right side iliopsoas tightness descending colon tightness on the left side of the abdominal wall tenderness left side of the sacral GANESH's and ischium tightness right greater than left side paraspinals swelling at the L5S1 junction PT-OP-J Posture/Palpation/Skin Start: 04/14/23 08:00 Freq: Status: Active Protocol: Document 04/14/23 08:05 [facility] (Rec: 04/14/23 16:58 [facility] [id number]) Palpation Assessment Location L5-S1 and sacral base swelling Palpation Findings Edema Palpation Details edema noted at the base of the sacrum, trial of kinesiotape star pattern for swelling reduction was done today 3 Palpation Location sacral GANESH's Palpation Findings Soft Tissue Tightness,Muscle Guarding,Tenderness Palpation Details left greater than right side deep gluteal and deep pelvic floor tightness 2 Palpation Location right sided adductor guarding and spasm, proximal attachment Palpation Findings Soft Tissue Tightness,Spasm, Muscle Guarding left lateral wall of the abdomen and descending colon Palpation Findings Soft Tissue Tightness Palpation Details tenderness and myofascial tightness along the descending colon on the left side of the abdominal wall PT-OP-K Range of Motion Start: 04/14/23 16:59 Freq: Status: Active Protocol: Document 04/14/23 08:05 [facility] (Rec: 04/14/23 17:03 [facility] [id number]) Lumbar Spine Range of Motion Lumbar Spine Active Testing Position Standing Flexion 50 Lateral Flexion Left 8 Lateral Flexion Right 10 ROM Limitations Soft Tissue Tightness,Muscle Tone Comments Tami notes since radiation treatments she has been much tighter in her low back and hip and lacks the ROM to touch the floor with her hands. She is guarded more the right side side of the paraspinals and can feel tightness restricting her with sidebends expecially to the left Hip Goniometric Range of Motion Hip Left Hip ROM WFL No Flexion w/Knee Flexed 110 Straight Leg Raise 50 External Rotation 20 Comments pt is no longer able to rest her heel on opp knee for piriformis stretch Right Hip ROM WFL No Flexion w/Knee Flexed 105 Straight Leg Raise 55 Extension 5 External Rotation 20 Comments pt is no longer able to rest her heel on opp knee for piriformis stretch Hip ROM Limitations Hip ROM Limitations Soft Tissue Tightness, Contracture,Muscle Tone,Pain Comments right sided proximal adductor tightness following radiation treatments limits hip ROM and mobility PT-OP-Q Treatments Start: 04/14/23 13:56 Freq: Status: Active Protocol: Document 05/03/23 10:30 [facility] (Rec: 05/03/23 14:45 [facility] [id number]) Manual Therapy Treatment Soft Tissue Mobilization sidelying obturator internus release Mobilization Type Myofascial Release Comments sidelying obturator internus release B external pelvic floor release Comments worked on releasing the pelvic floor externally today and Tami could feel her pelvic floor relax following MFR quad release B Mobilization Type Myofascial Release Body Position Hooklying Comments worked in both sidelying as well as hooklying PT-OP-T Assessment and Plan Start: 04/14/23 08:00 Freq: Status: Active Protocol: Document 05/03/23 10:30 [facility] (Rec: 05/03/23 14:45 [facility] [id number]) Physical Therapy Assessment Assessment Summary Assessment Tami is doing better with tightness around the sacrum and improving movement of her hips. I did start work today on releasing the obturator internus as well as pelvic floor release externally and Tami tolerated this well. She is using the miracle balls at home now and this is working really well for her. Physical Therapy Plan Frequency and Duration Frequency of Treatment 2x/Week Duration of treatment (weeks) 12 Plan of Care Start Date 04/14/23 Plan of Care End Date 07/07/23 Therapeutic Interventions Therapeutic Interventions Home Exercise Program,Joint Mobilizations,Manual Therapy, Patient/Caregiver Education, Self-Care/Home Management,Soft Tissue Mobilization, Therapeutic Exercises Modalities Biofeedback,Electric Stimulation Next Visit Focus/Plan Next Note Type Treatment Note Next Visit Plan continue MFR treatments, give pt a quad stretch for home either in prone or sidelying, begin pelvic floor release if Tami is ready to start that next visit
--- NOTE | 2023-05-10 16:03 | PT.OTN ---
Current Diagnoses Malignant neoplasm of rectum (05/10/23) Other specified disorders of the skin and subcutaneous tissue related to radiation (05/10/23) Muscle spasm of back (05/10/23) Other reduced mobility (05/10/23) Physical Therapy Treatment Note PT-OP-A Visit Information Start: 04/14/23 08:00 Freq: Status: Active Protocol: Document 05/10/23 10:30 [facility] (Rec: 05/10/23 16:02 [facility] [id number]) Out-Patient Physical Therapy Visit Information Visit Information Visit Type Treatment Note Visit Start Time 10:30 Visit Stop Time 11:15 Total Visit Minutes 45 Visit Number 4 PT-OP-B Current Condition Start: 04/14/23 08:00 Freq: Status: Active Protocol: Document 04/14/23 08:05 [facility] (Rec: 04/14/23 09:22 [facility] [id number]) Current Condition History of Current Condition Onset Date November 2022 Current Complaints decreased mobility, pelvic tightness, fecal incontinence s/p radiation History of Current Condition tami reports she did 6 weeks of radiation at [facility] for anal cancer, she is feeling very limited afterwards , her yoga moves she did before treatment she is now unable to do, tami decribes her symptoms as a lack of mobility. Her radiation started in september and went 6 weeks ending November 26. Anal cancer Chemo infusion x 2 weeks due to platelets dropping so much. SHe has difficulty with things like laying on her side with knees bent to sleep and she is no longer able to rest her ankle on the opposite knee for a hip stretch. She feels tight in her low back and is no longer able to bend forward touching her hands to the floor She has pain with bowel movements and has horrible GI issues and he stool is more like ribbons and going to the bathroom multiple times per day. She is on imodium now and is seeing a dietition to help with her stool Treatment Goals Patient/Caregiver Goals Treatment goals include increasing mobility and decreasing tightness, working on scar tissue in the rectum to improve bowel movements and pelvic floor work to release tension PT-OP-C Subjective Start: 04/14/23 08:00 Freq: Status: Active Protocol: Document 05/10/23 10:30 [facility] (Rec: 05/10/23 11:25 [facility] [id number]) OP-PT Subjective Patient Comments Patient Comments Tami notes she feels like things are changing and the rectum canal she has had pain but she feels it is productive pain. Her bowel movements are shifting to a larger diamer but it causes pain and soreness but it doesn't last for a long time. She is trying to do a standing quad stretch but it is still really tight. PT-OP-F Manual Assessment Start: 04/14/23 08:00 Freq: Status: Active Protocol: Document 04/14/23 08:08 [facility] (Rec: 04/14/23 09:22 [facility] [id number]) Manual Assessments Soft Tissue Assessment Soft Tissue Mobility Assessment right adducted hypertonicity at the pubic bone atachment left greater than right side iliopsoas tightness descending colon tightness on the left side of the abdominal wall tenderness left side of the sacral GANESH's and ischium tightness right greater than left side paraspinals swelling at the L5S1 junction PT-OP-J Posture/Palpation/Skin Start: 04/14/23 08:00 Freq: Status: Active Protocol: Document 04/14/23 08:05 [facility] (Rec: 04/14/23 16:58 [facility] [id number]) Palpation Assessment Location L5-S1 and sacral base swelling Palpation Findings Edema Palpation Details edema noted at the base of the sacrum, trial of kinesiotape star pattern for swelling reduction was done today 3 Palpation Location sacral GANESH's Palpation Findings Soft Tissue Tightness,Muscle Guarding,Tenderness Palpation Details left greater than right side deep gluteal and deep pelvic floor tightness 2 Palpation Location right sided adductor guarding and spasm, proximal attachment Palpation Findings Soft Tissue Tightness,Spasm, Muscle Guarding left lateral wall of the abdomen and descending colon Palpation Findings Soft Tissue Tightness Palpation Details tenderness and myofascial tightness along the descending colon on the left side of the abdominal wall PT-OP-K Range of Motion Start: 04/14/23 16:59 Freq: Status: Active Protocol: Document 04/14/23 08:05 [facility] (Rec: 04/14/23 17:03 [facility] [id number]) Lumbar Spine Range of Motion Lumbar Spine Active Testing Position Standing Flexion 50 Lateral Flexion Left 8 Lateral Flexion Right 10 ROM Limitations Soft Tissue Tightness,Muscle Tone Comments Tami notes since radiation treatments she has been much tighter in her low back and hip and lacks the ROM to touch the floor with her hands. She is guarded more the right side side of the paraspinals and can feel tightness restricting her with sidebends expecially to the left Hip Goniometric Range of Motion Hip Left Hip ROM WFL No Flexion w/Knee Flexed 110 Straight Leg Raise 50 External Rotation 20 Comments pt is no longer able to rest her heel on opp knee for piriformis stretch Right Hip ROM WFL No Flexion w/Knee Flexed 105 Straight Leg Raise 55 Extension 5 External Rotation 20 Comments pt is no longer able to rest her heel on opp knee for piriformis stretch Hip ROM Limitations Hip ROM Limitations Soft Tissue Tightness, Contracture,Muscle Tone,Pain Comments right sided proximal adductor tightness following radiation treatments limits hip ROM and mobility PT-OP-Q Treatments Start: 04/14/23 13:56 Freq: Status: Active Protocol: Document 05/10/23 10:30 [facility] (Rec: 05/10/23 16:02 [facility] [id number]) Therapeutic Exercises Supine Exercises bharathi pose with pillows for pelvic floor relaxation Supine Exercise Name HEP iliopsoas stretch off the edge of bed Reps/Minutes hold 1-2 minutes Comments manual pressure today into iliopsoas stretch supine modified pelvic floor squat Supine Exercise Name HEP Sidelying Exercises sidelying quad stretch Side bilateral Reps/Minutes hold 30 sec + Other Exercises quadruped Rock backs with TB assisted hip glides Other Exercise Name pt liked straight inferior glide the best Resistance level 6 band Reps/Minutes x 10 reps Comments I manually held the band for Tami today Manual Therapy Treatment Soft Tissue Mobilization quad release B Mobilization Type Myofascial Release Body Position Hooklying Comments worked in both sidelying as well as hooklying right sided adductor release Mobilization Type Myofascial Release Comments worked proximal attachment of the adductors B Joint Mobilizations MWM for hip capsule Joint Bilateral hip joints Body Position Hooklying Comments used mobilization belt for inferior, posterior and lateral glides and pt tolerated really well and felt much looser after treatment PT-OP-T Assessment and Plan Start: 04/14/23 08:00 Freq: Status: Active Protocol: Document 05/10/23 10:30 [facility] (Rec: 05/10/23 16:02 [facility] [id number]) Physical Therapy Assessment Goals 3 Impairment decreased lumbar and hip ROM s /p radiation therapy Short Term Goal (STG) Tami is educated in a home stretching and flexibility program for the hips, low back and pelvis STG Duration 4 weeks Snf Goal (LTG) With manual therapy work to address fascial restrictions and tightness as well as work on exercises and stretches to improve ROM Tami is able to return to ROM with is WFL LTG Duration 12 weeks 2 Impairment fecal incontinence [employer] Goal (LTG) With both manual therapy work to reduce scar tissue in the pelvic floor and rectum as well as strengthening for the pelvic floor Tami reports significant reduction in fecal incontinence 1 Impairment radiation induced myofascial restrictions in the low back, abdomen and pelvis limiting Tami's ability to engage in her recreational activites such as yoga Snf Goal (LTG) Tami is able to return to recreational activities such as yoga and feels overall more mobility in her pelvis, abdomen, and low back LTG Duration 12 weeks Assessment Summary Assessment Tami tolerated MWM with manual therapy belt for her hips today really well. She was givne a level 6 TB for home self mobs in a quadruped position. Her quads are still tight but she was able to do the sidelying quad stretch today after treatment and was given this for home today Physical Therapy Plan Frequency and Duration Frequency of Treatment 2x/Week Duration of treatment (weeks) 12 Plan of Care Start Date 04/14/23 Plan of Care End Date 07/07/23 Therapeutic Interventions Therapeutic Interventions Home Exercise Program,Joint Mobilizations,Manual Therapy, Patient/Caregiver Education, Self-Care/Home Management,Soft Tissue Mobilization, Therapeutic Exercises Next Visit Focus/Plan Next Note Type Treatment Note Next Visit Plan continue MFR techniques to help decrease fascial tightness in the pelvis from radiation. Check in with how Tami did with self hip mobilizations with band.
--- NOTE | 2023-05-12 09:55 | PT.OTN ---
Current Diagnoses Malignant neoplasm of rectum (05/12/23) Other specified disorders of the skin and subcutaneous tissue related to radiation (05/12/23) Muscle spasm of back (05/12/23) Other reduced mobility (05/12/23) Physical Therapy Treatment Note PT-OP-A Visit Information Start: 04/14/23 08:00 Freq: Status: Active Protocol: Document 05/12/23 09:02 SP (Rec: 05/12/23 10:25 SP [id number]) Out-Patient Physical Therapy Visit Information Visit Information Visit Type Treatment Note Visit Start Time 09:02 Visit Stop Time 09:55 Total Visit Minutes 53 Visit Number 5 Number of ORTHOPAEDIC GENERAL Visits 1 Evaluation Information Evaluation Date 04/14/23 PT-OP-B Current Condition Start: 04/14/23 08:00 Freq: Status: Active Protocol: Document 04/14/23 08:05 [facility] (Rec: 04/14/23 09:22 [facility] [id number]) Current Condition History of Current Condition Onset Date November 2022 Current Complaints decreased mobility, pelvic tightness, fecal incontinence s/p radiation History of Current Condition tami reports she did 6 weeks of radiation at [facility] for anal cancer, she is feeling very limited afterwards , her yoga moves she did before treatment she is now unable to do, tami decribes her symptoms as a lack of mobility. Her radiation started in september and went 6 weeks ending November 26. Anal cancer Chemo infusion x 2 weeks due to platelets dropping so much. SHe has difficulty with things like laying on her side with knees bent to sleep and she is no longer able to rest her ankle on the opposite knee for a hip stretch. She feels tight in her low back and is no longer able to bend forward touching her hands to the floor She has pain with bowel movements and has horrible GI issues and he stool is more like ribbons and going to the bathroom multiple times per day. She is on imodium now and is seeing a dietition to help with her stool Treatment Goals Patient/Caregiver Goals Treatment goals include increasing mobility and decreasing tightness, working on scar tissue in the rectum to improve bowel movements and pelvic floor work to release tension PT-OP-C Subjective Start: 04/14/23 08:00 Freq: Status: Active Protocol: Document 05/12/23 09:02 SP (Rec: 05/12/23 10:25 SP [id number]) OP-PT Subjective Patient Comments Patient Comments Pt report since starting PT noticing some mobility in pelvis, digestive system and output. She states quad stretch a challenge keeping knees parallel in sidelying and not letting hip flex forward. She states uses magic /miracle ball for self STMs and has been helpful, trialed lacrosse ball and pretty sensitive but finds can be helpful but not right now. PT-OP-F Manual Assessment Start: 04/14/23 08:00 Freq: Status: Active Protocol: Document 04/14/23 08:08 [facility] (Rec: 04/14/23 09:22 [facility] [id number]) Manual Assessments Soft Tissue Assessment Soft Tissue Mobility Assessment right adducted hypertonicity at the pubic bone atachment left greater than right side iliopsoas tightness descending colon tightness on the left side of the abdominal wall tenderness left side of the sacral GANESH's and ischium tightness right greater than left side paraspinals swelling at the L5S1 junction PT-OP-J Posture/Palpation/Skin Start: 04/14/23 08:00 Freq: Status: Active Protocol: Document 04/14/23 08:05 [facility] (Rec: 04/14/23 16:58 [facility] [id number]) Palpation Assessment Location L5-S1 and sacral base swelling Palpation Findings Edema Palpation Details edema noted at the base of the sacrum, trial of kinesiotape star pattern for swelling reduction was done today 3 Palpation Location sacral GANESH's Palpation Findings Soft Tissue Tightness,Muscle Guarding,Tenderness Palpation Details left greater than right side deep gluteal and deep pelvic floor tightness 2 Palpation Location right sided adductor guarding and spasm, proximal attachment Palpation Findings Soft Tissue Tightness,Spasm, Muscle Guarding left lateral wall of the abdomen and descending colon Palpation Findings Soft Tissue Tightness Palpation Details tenderness and myofascial tightness along the descending colon on the left side of the abdominal wall PT-OP-K Range of Motion Start: 04/14/23 16:59 Freq: Status: Active Protocol: Document 04/14/23 08:05 [facility] (Rec: 04/14/23 17:03 [facility] [id number]) Lumbar Spine Range of Motion Lumbar Spine Active Testing Position Standing Flexion 50 Lateral Flexion Left 8 Lateral Flexion Right 10 ROM Limitations Soft Tissue Tightness,Muscle Tone Comments Tami notes since radiation treatments she has been much tighter in her low back and hip and lacks the ROM to touch the floor with her hands. She is guarded more the right side side of the paraspinals and can feel tightness restricting her with sidebends expecially to the left Hip Goniometric Range of Motion Hip Left Hip ROM WFL No Flexion w/Knee Flexed 110 Straight Leg Raise 50 External Rotation 20 Comments pt is no longer able to rest her heel on opp knee for piriformis stretch Right Hip ROM WFL No Flexion w/Knee Flexed 105 Straight Leg Raise 55 Extension 5 External Rotation 20 Comments pt is no longer able to rest her heel on opp knee for piriformis stretch Hip ROM Limitations Hip ROM Limitations Soft Tissue Tightness, Contracture,Muscle Tone,Pain Comments right sided proximal adductor tightness following radiation treatments limits hip ROM and mobility PT-OP-Q Treatments Start: 04/14/23 13:56 Freq: Status: Active Protocol: Document 05/12/23 09:02 SP (Rec: 05/12/23 10:25 SP [id number]) Therapeutic Exercises Supine Exercises supine modified pelvic floor squat Supine Exercise Name HEP- Happy Baby Reps/Minutes 30x2 Comments good stretch post manual Prone Exercises quad stretch Prone Exercise Name initiated and added to HEP Side bilateral Resistance AAROM/stretch Equipment Used strap around ankle/ over same side shld Reps/Minutes 30-60 SH Comments cued maintain ASIS on table/ floor, pull back slow/gentle no hip flex,compen Sidelying Exercises sidelying quad stretch Sidelying Exercise Name challenged with no up flexor compensations- Hold Side bilateral Reps/Minutes hold 30 sec + Other Exercises self STM Other Exercise Name added to HEP- Modified long sitting Resistance hip ERs, distal HS, external PF Equipment Used racquetball vs tennis ball, opp LE and BUE support Reps/Minutes limited MFR holds tolerant Comments extensive ed and caution use BUE/LE for support allowance sustained MFR- gd Manual Therapy Treatment Soft Tissue Mobilization hamstring Body Location B proximal Mobilization Type Strumming,Sustained Pressure, Other Intensity/Depth Moderate Comments hooklying and sidelying: manual with ed and performance modified long sitting use racquetball/tennis/ lacrosse ball opp LE& BUE support stretch over ball abdominal Body Location B Obliques, Iliacus Mobilization Type Myofascial Release,Sustained Pressure,Other Intensity/Depth Moderate Body Position Hooklying Comments gentle sustained pressure with breath. sidelying obturator internus release Body Location B Mobilization Type Myofascial Release Comments sidelying obturator internus release B, modified long sitting: manual with ed and performance modified long sitting use racquetball/tennis / lacrosse ball opp LE& BUE support stretch over ball manual with ed and performance modified long sitting release use racquetball/tennis/ lacrosse ball opp LE& BUE support stretch over ball external pelvic floor release Body Location B Comments worked on releasing the pelvic floor externally today, modified long sitting: manual with ed and performance modified long sitting use racquetball/tennis/ lacrosse ball opp LE& BUE support stretch over ball manual with ed and performance modified long sitting release use racquetball/tennis/ lacrosse ball opp LE& BUE support stretch over ball quad release B Mobilization Type Myofascial Release Body Position Hooklying Comments worked in both sidelying as well as hooklying right sided adductor release Body Location B Mobilization Type Myofascial Release Comments worked proximal attachment of the adductors B Self-Care/Home Management Treatment Education Other Education Extensive time during manual, education of LE, pelvic anatomy and how assists and can be restricting in mobility . Added use of strap for prone quad stretch and use of various small balls for self sustained STMs to increase flexibility progressing into mobility gained. PT-OP-T Assessment and Plan Start: 04/14/23 08:00 Freq: Status: Active Protocol: Document 05/12/23 09:02 SP (Rec: 05/12/23 10:25 SP [id number]) Physical Therapy Assessment Goals 3 Impairment decreased lumbar and hip ROM s /p radiation therapy Short Term Goal (STG) Tami is educated in a home stretching and flexibility program for the hips, low back and pelvis STG Duration 4 weeks Custodian Manager Goal (LTG) With manual therapy work to address fascial restrictions and tightness as well as work on exercises and stretches to improve ROM Tami is able to return to ROM with is WFL LTG Duration 12 weeks 2 Impairment fecal incontinence Fdc Goal (LTG) With both manual therapy work to reduce scar tissue in the pelvic floor and rectum as well as strengthening for the pelvic floor Tami reports significant reduction in fecal incontinence 1 Impairment radiation induced myofascial restrictions in the low back, abdomen and pelvis limiting Tami's ability to engage in her recreational activites such as yoga Fdc Goal (LTG) Tami is able to return to recreational activities such as yoga and feels overall more mobility in her pelvis, abdomen, and low back LTG Duration 12 weeks Assessment Summary Assessment Tami responded well to manual and ed for self application use of racquetball /tennis/lacrosse ball use in modified long sit releases can carryover home. Modified quad stretch prone with use strap today improved stretch without LB/hip flexor compensations. Pt reported good understanding with extensive education on anatomy and how self apply manual if able at home and pelvic ROM/mobility with activities importance of how stretching is assisting decrease restrictions. Pt reported felt gained soft tissue mobility once up to standing. Physical Therapy Plan Frequency and Duration Frequency of Treatment 2x/Week Duration of treatment (weeks) 12 Plan of Care Start Date 04/14/23 Plan of Care End Date 07/07/23 Therapeutic Interventions Therapeutic Interventions Home Exercise Program,Joint Mobilizations,Manual Therapy, Patient/Caregiver Education, Self-Care/Home Management,Soft Tissue Mobilization, Therapeutic Exercises Next Visit Focus/Plan Next Note Type Treatment Note Next Visit Plan Assess reponse to manual and self STMs. Next tx trial cupping: kit, HS. POC: continue MFR techniques to help decrease fascial tightness in the pelvis from radiation. Check in with how Tami did with self hip mobilizations with band.
--- NOTE | 2023-05-19 08:29 | PT.OTN ---
Current Diagnoses Malignant neoplasm of rectum (05/17/23) Other specified disorders of the skin and subcutaneous tissue related to radiation (05/17/23) Muscle spasm of back (05/17/23) Other reduced mobility (05/17/23) Physical Therapy Treatment Note PT-OP-A Visit Information Start: 04/14/23 08:00 Freq: Status: Active Protocol: Document 05/17/23 10:30 [facility] (Rec: 05/19/23 08:28 [facility] [id number]) Out-Patient Physical Therapy Visit Information Visit Information Visit Type Treatment Note Visit Start Time 10:30 Visit Stop Time 11:15 Total Visit Minutes 45 Visit Number 6 PT-OP-B Current Condition Start: 04/14/23 08:00 Freq: Status: Active Protocol: Document 04/14/23 08:05 [facility] (Rec: 04/14/23 09:22 [facility] [id number]) Current Condition History of Current Condition Onset Date November 2022 Current Complaints decreased mobility, pelvic tightness, fecal incontinence s/p radiation History of Current Condition tami reports she did 6 weeks of radiation at [facility] for anal cancer, she is feeling very limited afterwards , her yoga moves she did before treatment she is now unable to do, tami decribes her symptoms as a lack of mobility. Her radiation started in september and went 6 weeks ending November 26. Anal cancer Chemo infusion x 2 weeks due to platelets dropping so much. SHe has difficulty with things like laying on her side with knees bent to sleep and she is no longer able to rest her ankle on the opposite knee for a hip stretch. She feels tight in her low back and is no longer able to bend forward touching her hands to the floor She has pain with bowel movements and has horrible GI issues and he stool is more like ribbons and going to the bathroom multiple times per day. She is on imodium now and is seeing a dietition to help with her stool Treatment Goals Patient/Caregiver Goals Treatment goals include increasing mobility and decreasing tightness, working on scar tissue in the rectum to improve bowel movements and pelvic floor work to release tension PT-OP-C Subjective Start: 04/14/23 08:00 Freq: Status: Active Protocol: Document 05/17/23 10:32 [facility] (Rec: 05/17/23 11:17 [facility] [id number]) OP-PT Subjective Patient Comments Patient Comments Tami had the covid shot last week and has felt really run down and sick afterward. She had it on Tuesday and still not feeling 100% PT-OP-F Manual Assessment Start: 04/14/23 08:00 Freq: Status: Active Protocol: Document 04/14/23 08:08 [facility] (Rec: 04/14/23 09:22 [facility] [id number]) Manual Assessments Soft Tissue Assessment Soft Tissue Mobility Assessment right adducted hypertonicity at the pubic bone atachment left greater than right side iliopsoas tightness descending colon tightness on the left side of the abdominal wall tenderness left side of the sacral GANESH's and ischium tightness right greater than left side paraspinals swelling at the L5S1 junction PT-OP-J Posture/Palpation/Skin Start: 04/14/23 08:00 Freq: Status: Active Protocol: Document 04/14/23 08:05 [facility] (Rec: 04/14/23 16:58 [facility] [id number]) Palpation Assessment Location L5-S1 and sacral base swelling Palpation Findings Edema Palpation Details edema noted at the base of the sacrum, trial of kinesiotape star pattern for swelling reduction was done today 3 Palpation Location sacral GANESH's Palpation Findings Soft Tissue Tightness,Muscle Guarding,Tenderness Palpation Details left greater than right side deep gluteal and deep pelvic floor tightness 2 Palpation Location right sided adductor guarding and spasm, proximal attachment Palpation Findings Soft Tissue Tightness,Spasm, Muscle Guarding left lateral wall of the abdomen and descending colon Palpation Findings Soft Tissue Tightness Palpation Details tenderness and myofascial tightness along the descending colon on the left side of the abdominal wall PT-OP-K Range of Motion Start: 04/14/23 16:59 Freq: Status: Active Protocol: Document 04/14/23 08:05 [facility] (Rec: 04/14/23 17:03 [facility] [id number]) Lumbar Spine Range of Motion Lumbar Spine Active Testing Position Standing Flexion 50 Lateral Flexion Left 8 Lateral Flexion Right 10 ROM Limitations Soft Tissue Tightness,Muscle Tone Comments Tami notes since radiation treatments she has been much tighter in her low back and hip and lacks the ROM to touch the floor with her hands. She is guarded more the right side side of the paraspinals and can feel tightness restricting her with sidebends expecially to the left Hip Goniometric Range of Motion Hip Left Hip ROM WFL No Flexion w/Knee Flexed 110 Straight Leg Raise 50 External Rotation 20 Comments pt is no longer able to rest her heel on opp knee for piriformis stretch Right Hip ROM WFL No Flexion w/Knee Flexed 105 Straight Leg Raise 55 Extension 5 External Rotation 20 Comments pt is no longer able to rest her heel on opp knee for piriformis stretch Hip ROM Limitations Hip ROM Limitations Soft Tissue Tightness, Contracture,Muscle Tone,Pain Comments right sided proximal adductor tightness following radiation treatments limits hip ROM and mobility PT-OP-Q Treatments Start: 04/14/23 13:56 Freq: Status: Active Protocol: Document 05/17/23 10:30 [facility] (Rec: 05/19/23 08:28 [facility] [id number]) Manual Therapy Treatment Soft Tissue Mobilization quad release B Body Location bilateral quad Mobilization Type Myofascial Release Body Position Hooklying Comments worked in both sidelying as well as hooklying right sided adductor release Body Location B Mobilization Type Myofascial Release Comments worked proximal attachment of the adductors B Joint Mobilizations MWM for hip capsule Joint Bilateral hip joints Body Position Hooklying Comments used mobilization belt for inferior, posterior and lateral glides and pt tolerated really well and felt much looser after treatment Manual Techniques posterior hip capsule glides Comments B sides in hip flexion grade III, Tami tolerated this well manual iliopsoas stretch Comments worked in jcarlos test position with manual stretch PT-OP-T Assessment and Plan Start: 04/14/23 08:00 Freq: Status: Active Protocol: Document 05/17/23 10:30 [facility] (Rec: 05/19/23 08:28 [facility] [id number]) Physical Therapy Assessment Assessment Summary Assessment Tami has been under the weather after her covid + Flu vaccine and has not been as active this week. She felt tighter. She is feeling better today and will resume her stretches and activity for home. Physical Therapy Plan Frequency and Duration Frequency of Treatment 2x/Week Duration of treatment (weeks) 12 Plan of Care Start Date 04/14/23 Plan of Care End Date 07/07/23 Therapeutic Interventions Therapeutic Interventions Home Exercise Program,Joint Mobilizations,Manual Therapy, Patient/Caregiver Education, Self-Care/Home Management,Soft Tissue Mobilization, Therapeutic Exercises Next Visit Focus/Plan Next Note Type Treatment Note Next Visit Plan continue MFR techniques to help decrease fascial tightness in the pelvis from radiation. Check in with how Tami did with self hip mobilizations with band.
--- NOTE | 2023-05-19 09:52 | PT.OTN ---
Current Diagnoses Malignant neoplasm of rectum (05/19/23) Other specified disorders of the skin and subcutaneous tissue related to radiation (05/19/23) Muscle spasm of back (05/19/23) Other reduced mobility (05/19/23) Physical Therapy Treatment Note PT-OP-A Visit Information Start: 04/14/23 08:00 Freq: Status: Active Protocol: Document 05/19/23 09:02 SP (Rec: 05/19/23 10:20 SP [id number]) Out-Patient Physical Therapy Visit Information Visit Information Visit Type Treatment Note Visit Start Time 09:02 Visit Stop Time 09:52 Total Visit Minutes 50 Visit Number 7 Number of KENNEL WORKER Visits 1 Evaluation Information Evaluation Date 04/14/23 PT-OP-B Current Condition Start: 04/14/23 08:00 Freq: Status: Active Protocol: Document 04/14/23 08:05 [facility] (Rec: 04/14/23 09:22 [facility] [id number]) Current Condition History of Current Condition Onset Date November 2022 Current Complaints decreased mobility, pelvic tightness, fecal incontinence s/p radiation History of Current Condition tami reports she did 6 weeks of radiation at [facility] for anal cancer, she is feeling very limited afterwards , her yoga moves she did before treatment she is now unable to do, tami decribes her symptoms as a lack of mobility. Her radiation started in september and went 6 weeks ending November 26. Anal cancer Chemo infusion x 2 weeks due to platelets dropping so much. SHe has difficulty with things like laying on her side with knees bent to sleep and she is no longer able to rest her ankle on the opposite knee for a hip stretch. She feels tight in her low back and is no longer able to bend forward touching her hands to the floor She has pain with bowel movements and has horrible GI issues and he stool is more like ribbons and going to the bathroom multiple times per day. She is on imodium now and is seeing a dietition to help with her stool Treatment Goals Patient/Caregiver Goals Treatment goals include increasing mobility and decreasing tightness, working on scar tissue in the rectum to improve bowel movements and pelvic floor work to release tension PT-OP-C Subjective Start: 04/14/23 08:00 Freq: Status: Active Protocol: Document 05/19/23 09:02 SP (Rec: 05/19/23 10:20 SP [id number]) OP-PT Subjective Patient Comments Patient Comments Pt reported found sitting on ball was helpful with muscle releasing. She is still overall soreness recovering from COVID shot. States willing to trial cupping today for assess increase mobility. PT-OP-F Manual Assessment Start: 04/14/23 08:00 Freq: Status: Active Protocol: Document 04/14/23 08:08 [facility] (Rec: 04/14/23 09:22 [facility] [id number]) Manual Assessments Soft Tissue Assessment Soft Tissue Mobility Assessment right adducted hypertonicity at the pubic bone atachment left greater than right side iliopsoas tightness descending colon tightness on the left side of the abdominal wall tenderness left side of the sacral GANESH's and ischium tightness right greater than left side paraspinals swelling at the L5S1 junction PT-OP-J Posture/Palpation/Skin Start: 04/14/23 08:00 Freq: Status: Active Protocol: Document 04/14/23 08:05 [facility] (Rec: 04/14/23 16:58 [facility] [id number]) Palpation Assessment Location L5-S1 and sacral base swelling Palpation Findings Edema Palpation Details edema noted at the base of the sacrum, trial of kinesiotape star pattern for swelling reduction was done today 3 Palpation Location sacral GANESH's Palpation Findings Soft Tissue Tightness,Muscle Guarding,Tenderness Palpation Details left greater than right side deep gluteal and deep pelvic floor tightness 2 Palpation Location right sided adductor guarding and spasm, proximal attachment Palpation Findings Soft Tissue Tightness,Spasm, Muscle Guarding left lateral wall of the abdomen and descending colon Palpation Findings Soft Tissue Tightness Palpation Details tenderness and myofascial tightness along the descending colon on the left side of the abdominal wall PT-OP-K Range of Motion Start: 04/14/23 16:59 Freq: Status: Active Protocol: Document 04/14/23 08:05 [facility] (Rec: 04/14/23 17:03 [facility] [id number]) Lumbar Spine Range of Motion Lumbar Spine Active Testing Position Standing Flexion 50 Lateral Flexion Left 8 Lateral Flexion Right 10 ROM Limitations Soft Tissue Tightness,Muscle Tone Comments Tami notes since radiation treatments she has been much tighter in her low back and hip and lacks the ROM to touch the floor with her hands. She is guarded more the right side side of the paraspinals and can feel tightness restricting her with sidebends expecially to the left Hip Goniometric Range of Motion Hip Left Hip ROM WFL No Flexion w/Knee Flexed 110 Straight Leg Raise 50 External Rotation 20 Comments pt is no longer able to rest her heel on opp knee for piriformis stretch Right Hip ROM WFL No Flexion w/Knee Flexed 105 Straight Leg Raise 55 Extension 5 External Rotation 20 Comments pt is no longer able to rest her heel on opp knee for piriformis stretch Hip ROM Limitations Hip ROM Limitations Soft Tissue Tightness, Contracture,Muscle Tone,Pain Comments right sided proximal adductor tightness following radiation treatments limits hip ROM and mobility PT-OP-Q Treatments Start: 04/14/23 13:56 Freq: Status: Active Protocol: Document 05/19/23 09:02 SP (Rec: 05/19/23 10:20 SP [id number]) Therapeutic Exercises Supine Exercises bharathi pose with pillows for pelvic floor relaxation Supine Exercise Name HEP reviewed Reps/Minutes 20 SH Comments stated not feeling much of a stretch post manual supine modified pelvic floor squat Supine Exercise Name HEP- Happy Baby Equipment Used slight increase ROM reported Reps/Minutes 30x2 Comments good stretch post manual Manual Therapy Treatment Soft Tissue Mobilization obturator externus release Body Location quadruped over wedge Mobilization Type Strumming Intensity/Depth Moderate Comments pt good feedback decreased tension- challenge accessing self in happy baby pose, standing squat LE elevated hamstring Body Location B proximal Mobilization Type Cross-Friction,Instrument Assisted,Myofascial Release, Strumming Intensity/Depth Moderate Body Position modified quadruped over wedge /pillows Comments cupping & cross friction massage- good feedback response. abdominal Body Location B lower Obliques, Iliacus Mobilization Type Myofascial Release,Sustained Pressure,Other Intensity/Depth Moderate Body Position Hooklying Comments gentle sustained pressure and MFR with breath. sidelying obturator internus release Comments sidelying obturator internus release B, modified long sitting: manual with ed and performance modified long sitting use racquetball/tennis / lacrosse ball opp LE& BUE support stretch over ball manual with ed and performance modified long sitting quad release B Body Location bilateral quad Mobilization Type Instrument Assisted,Myofascial Release Body Position Hooklying Comments cupping c/ gentle MFglides and strumming post. right sided adductor release Body Location B Mobilization Type Instrument Assisted,Myofascial Release Intensity/Depth Superficial Body Position Hooklying Comments cupping c/ gentle MFglides and strumming post. PT-OP-T Assessment and Plan Start: 04/14/23 08:00 Freq: Status: Active Protocol: Document 05/19/23 09:02 SP (Rec: 05/19/23 10:20 SP [id number]) Physical Therapy Assessment Goals 3 Impairment decreased lumbar and hip ROM s /p radiation therapy Short Term Goal (STG) Tami is educated in a home stretching and flexibility program for the hips, low back and pelvis STG Duration 4 weeks Plumbing Instructor Goal (LTG) With manual therapy work to address fascial restrictions and tightness as well as work on exercises and stretches to improve ROM Tami is able to return to ROM with is WFL LTG Duration 12 weeks 2 Impairment fecal incontinence Plumbing Instructor Goal (LTG) With both manual therapy work to reduce scar tissue in the pelvic floor and rectum as well as strengthening for the pelvic floor Tami reports significant reduction in fecal incontinence 1 Impairment radiation induced myofascial restrictions in the low back, abdomen and pelvis limiting Tami's ability to engage in her recreational activites such as yoga Plumbing Instructor Goal (LTG) Tami is able to return to recreational activities such as yoga and feels overall more mobility in her pelvis, abdomen, and low back LTG Duration 12 weeks Assessment Summary Assessment Pt reported good feedback decreased tension over hamstring, adductors and obturator external oblique with feedback adjustments on pressure. DIfficulty accessing self, will continue to support in PT. NExt tx continue self mob usign strap in quadruped ed. Physical Therapy Plan Frequency and Duration Frequency of Treatment 2x/Week Duration of treatment (weeks) 12 Plan of Care Start Date 04/14/23 Plan of Care End Date 07/07/23 Therapeutic Interventions Therapeutic Interventions Home Exercise Program,Joint Mobilizations,Manual Therapy, Patient/Caregiver Education, Self-Care/Home Management,Soft Tissue Mobilization, Therapeutic Exercises Next Visit Focus/Plan Next Note Type Treatment Note Next Visit Plan Ask response to cupping. Trial pigeon up/down down dog poses. POC:continue MFR techniques to help decrease fascial tightness in the pelvis from radiation. Check in with how Tami did with self hip mobilizations with band.
--- NOTE | 2023-06-23 18:32 | PT.OTN ---
Current Diagnoses Malignant neoplasm of rectum (06/23/23) Other specified disorders of the skin and subcutaneous tissue related to radiation (06/23/23) Muscle spasm of back (06/23/23) Other reduced mobility (06/23/23) Physical Therapy Treatment Note PT-OP-A Visit Information Start: 04/14/23 08:00 Freq: Status: Active Protocol: Document 06/23/23 09:52 [facility] (Rec: 06/23/23 11:43 [facility] [id number]) Out-Patient Physical Therapy Visit Information Visit Information Visit Type Treatment Note Visit Start Time 09:50 Visit Stop Time 10:30 Total Visit Minutes 40 Visit Number 8 PT-OP-B Current Condition Start: 04/14/23 08:00 Freq: Status: Active Protocol: Document 04/14/23 08:05 [facility] (Rec: 04/14/23 09:22 [facility] [id number]) Current Condition History of Current Condition Onset Date November 2022 Current Complaints decreased mobility, pelvic tightness, fecal incontinence s/p radiation History of Current Condition tami reports she did 6 weeks of radiation at [facility] for anal cancer, she is feeling very limited afterwards , her yoga moves she did before treatment she is now unable to do, tami decribes her symptoms as a lack of mobility. Her radiation started in september and went 6 weeks ending November 26. Anal cancer Chemo infusion x 2 weeks due to platelets dropping so much. SHe has difficulty with things like laying on her side with knees bent to sleep and she is no longer able to rest her ankle on the opposite knee for a hip stretch. She feels tight in her low back and is no longer able to bend forward touching her hands to the floor She has pain with bowel movements and has horrible GI issues and he stool is more like ribbons and going to the bathroom multiple times per day. She is on imodium now and is seeing a dietition to help with her stool Treatment Goals Patient/Caregiver Goals Treatment goals include increasing mobility and decreasing tightness, working on scar tissue in the rectum to improve bowel movements and pelvic floor work to release tension PT-OP-C Subjective Start: 04/14/23 08:00 Freq: Status: Active Protocol: Document 06/23/23 09:52 [facility] (Rec: 06/23/23 11:43 [facility] [id number]) OP-PT Subjective Patient Comments Patient Comments pt notes she had a fall in [place] where she hit the curb and flew forward, she feels like she cracked the right anterior rib landing on her right side. She couldn't sleep last night. She walked lots of miles per day. She notes she is very sore from her fall and she feels like she should seek consult and have a Xray to see if she has a cracked rib PT-OP-F Manual Assessment Start: 04/14/23 08:00 Freq: Status: Active Protocol: Document 04/14/23 08:08 [facility] (Rec: 04/14/23 09:22 [facility] [id number]) Manual Assessments Soft Tissue Assessment Soft Tissue Mobility Assessment right adducted hypertonicity at the pubic bone atachment left greater than right side iliopsoas tightness descending colon tightness on the left side of the abdominal wall tenderness left side of the sacral GANESH's and ischium tightness right greater than left side paraspinals swelling at the L5S1 junction PT-OP-J Posture/Palpation/Skin Start: 04/14/23 08:00 Freq: Status: Active Protocol: Document 04/14/23 08:05 [facility] (Rec: 04/14/23 16:58 [facility] [id number]) Palpation Assessment Location L5-S1 and sacral base swelling Palpation Findings Edema Palpation Details edema noted at the base of the sacrum, trial of kinesiotape star pattern for swelling reduction was done today 3 Palpation Location sacral GANESH's Palpation Findings Soft Tissue Tightness,Muscle Guarding,Tenderness Palpation Details left greater than right side deep gluteal and deep pelvic floor tightness 2 Palpation Location right sided adductor guarding and spasm, proximal attachment Palpation Findings Soft Tissue Tightness,Spasm, Muscle Guarding left lateral wall of the abdomen and descending colon Palpation Findings Soft Tissue Tightness Palpation Details tenderness and myofascial tightness along the descending colon on the left side of the abdominal wall PT-OP-K Range of Motion Start: 04/14/23 16:59 Freq: Status: Active Protocol: Document 04/14/23 08:05 [facility] (Rec: 04/14/23 17:03 [facility] [id number]) Lumbar Spine Range of Motion Lumbar Spine Active Testing Position Standing Flexion 50 Lateral Flexion Left 8 Lateral Flexion Right 10 ROM Limitations Soft Tissue Tightness,Muscle Tone Comments Tami notes since radiation treatments she has been much tighter in her low back and hip and lacks the ROM to touch the floor with her hands. She is guarded more the right side side of the paraspinals and can feel tightness restricting her with sidebends expecially to the left Hip Goniometric Range of Motion Hip Left Hip ROM WFL No Flexion w/Knee Flexed 110 Straight Leg Raise 50 External Rotation 20 Comments pt is no longer able to rest her heel on opp knee for piriformis stretch Right Hip ROM WFL No Flexion w/Knee Flexed 105 Straight Leg Raise 55 Extension 5 External Rotation 20 Comments pt is no longer able to rest her heel on opp knee for piriformis stretch Hip ROM Limitations Hip ROM Limitations Soft Tissue Tightness, Contracture,Muscle Tone,Pain Comments right sided proximal adductor tightness following radiation treatments limits hip ROM and mobility PT-OP-Q Treatments Start: 04/14/23 13:56 Freq: Status: Active Protocol: Document 06/23/23 09:45 [facility] (Rec: 06/26/23 18:32 [facility] [id number]) Manual Therapy Treatment Soft Tissue Mobilization MFF to gluteal attachments to the sacrum R Mobilization Type Myofascial Release Intensity/Depth Moderate Body Position Sidelying Comments worked on attachments of the gluteals around the lateral border of the sacrum obturator externus release Body Location sidelying left side Mobilization Type Strumming Intensity/Depth Moderate Comments worked on the right obturator as left sidelying was the only comfortable position for Tami today due to rib pain right sided adductor release Body Location B Mobilization Type Instrument Assisted,Myofascial Release Intensity/Depth Superficial Body Position Hooklying Comments cupping c/ gentle MFglides and strumming post. Manual Techniques manual iliopsoas stretch Type right side only today Comments worked on right side only as Tami was unable to lay on her back or right side PT-OP-T Assessment and Plan Start: 04/14/23 08:00 Freq: Status: Active Protocol: Document 06/23/23 09:45 [facility] (Rec: 06/26/23 18:32 [facility] [id number]) Physical Therapy Assessment Assessment Summary Assessment Due to rib pain after a fall that prevented Tami from laying on her back and right side I did advise her to seek medical attention and possible Xray to rule out rib fracture . Treatment was altered due to pain laying in supine or right sidelying today Physical Therapy Plan Frequency and Duration Frequency of Treatment 2x/Week Duration of treatment (weeks) 12 Plan of Care Start Date 04/14/23 Plan of Care End Date 07/07/23 Therapeutic Interventions Therapeutic Interventions Home Exercise Program,Joint Mobilizations,Manual Therapy, Patient/Caregiver Education, Self-Care/Home Management,Soft Tissue Mobilization, Therapeutic Exercises Next Visit Focus/Plan Next Note Type Progress Note Next Visit Plan reassess rib pain next visit and continue with MFR techniques to decrease fascial tightness IA to MD next visit
--- NOTE | 2023-06-30 18:44 | PT.OTN ---
Current Diagnoses Malignant neoplasm of rectum (06/30/23) Other specified disorders of the skin and subcutaneous tissue related to radiation (06/30/23) Muscle spasm of back (06/30/23) Other reduced mobility (06/30/23) Physical Therapy Treatment Note PT-OP-A Visit Information Start: 04/14/23 08:00 Freq: Status: Active Protocol: Document 06/30/23 09:50 [facility] (Rec: 06/30/23 16:47 [facility] [id number]) Out-Patient Physical Therapy Visit Information Visit Information Visit Type Treatment Note Visit Start Time 09:45 Visit Stop Time 10:30 Total Visit Minutes 45 Visit Number 10 PT-OP-B Current Condition Start: 04/14/23 08:00 Freq: Status: Active Protocol: Document 04/14/23 08:05 [facility] (Rec: 04/14/23 09:22 [facility] [id number]) Current Condition History of Current Condition Onset Date November 2022 Current Complaints decreased mobility, pelvic tightness, fecal incontinence s/p radiation History of Current Condition tami reports she did 6 weeks of radiation at [facility] for anal cancer, she is feeling very limited afterwards , her yoga moves she did before treatment she is now unable to do, tami decribes her symptoms as a lack of mobility. Her radiation started in september and went 6 weeks ending November 26. Anal cancer Chemo infusion x 2 weeks due to platelets dropping so much. SHe has difficulty with things like laying on her side with knees bent to sleep and she is no longer able to rest her ankle on the opposite knee for a hip stretch. She feels tight in her low back and is no longer able to bend forward touching her hands to the floor She has pain with bowel movements and has horrible GI issues and he stool is more like ribbons and going to the bathroom multiple times per day. She is on imodium now and is seeing a dietition to help with her stool Treatment Goals Patient/Caregiver Goals Treatment goals include increasing mobility and decreasing tightness, working on scar tissue in the rectum to improve bowel movements and pelvic floor work to release tension PT-OP-C Subjective Start: 04/14/23 08:00 Freq: Status: Active Protocol: Document 06/30/23 09:50 [facility] (Rec: 06/30/23 10:33 [facility] [id number]) OP-PT Subjective Patient Comments Patient Comments pt notes she is doing better overal with her hips and rib pain is much better today Patient Reported Progress Improving PT-OP-F Manual Assessment Start: 04/14/23 08:00 Freq: Status: Active Protocol: Document 04/14/23 08:08 [facility] (Rec: 04/14/23 09:22 [facility] [id number]) Manual Assessments Soft Tissue Assessment Soft Tissue Mobility Assessment right adducted hypertonicity at the pubic bone atachment left greater than right side iliopsoas tightness descending colon tightness on the left side of the abdominal wall tenderness left side of the sacral GANESH's and ischium tightness right greater than left side paraspinals swelling at the L5S1 junction PT-OP-J Posture/Palpation/Skin Start: 04/14/23 08:00 Freq: Status: Active Protocol: Document 04/14/23 08:05 [facility] (Rec: 04/14/23 16:58 [facility] [id number]) Palpation Assessment Location L5-S1 and sacral base swelling Palpation Findings Edema Palpation Details edema noted at the base of the sacrum, trial of kinesiotape star pattern for swelling reduction was done today 3 Palpation Location sacral GANESH's Palpation Findings Soft Tissue Tightness,Muscle Guarding,Tenderness Palpation Details left greater than right side deep gluteal and deep pelvic floor tightness 2 Palpation Location right sided adductor guarding and spasm, proximal attachment Palpation Findings Soft Tissue Tightness,Spasm, Muscle Guarding left lateral wall of the abdomen and descending colon Palpation Findings Soft Tissue Tightness Palpation Details tenderness and myofascial tightness along the descending colon on the left side of the abdominal wall PT-OP-K Range of Motion Start: 04/14/23 16:59 Freq: Status: Active Protocol: Document 04/14/23 08:05 [facility] (Rec: 04/14/23 17:03 [facility] [id number]) Lumbar Spine Range of Motion Lumbar Spine Active Testing Position Standing Flexion 50 Lateral Flexion Left 8 Lateral Flexion Right 10 ROM Limitations Soft Tissue Tightness,Muscle Tone Comments Tami notes since radiation treatments she has been much tighter in her low back and hip and lacks the ROM to touch the floor with her hands. She is guarded more the right side side of the paraspinals and can feel tightness restricting her with sidebends expecially to the left Hip Goniometric Range of Motion Hip Left Hip ROM WFL No Flexion w/Knee Flexed 110 Straight Leg Raise 50 External Rotation 20 Comments pt is no longer able to rest her heel on opp knee for piriformis stretch Right Hip ROM WFL No Flexion w/Knee Flexed 105 Straight Leg Raise 55 Extension 5 External Rotation 20 Comments pt is no longer able to rest her heel on opp knee for piriformis stretch Hip ROM Limitations Hip ROM Limitations Soft Tissue Tightness, Contracture,Muscle Tone,Pain Comments right sided proximal adductor tightness following radiation treatments limits hip ROM and mobility PT-OP-Q Treatments Start: 04/14/23 13:56 Freq: Status: Active Protocol: Document 06/30/23 09:50 [facility] (Rec: 06/30/23 16:50 [facility] [id number]) Manual Therapy Treatment Soft Tissue Mobilization MFF to gluteal attachments to the sacrum R Mobilization Type Myofascial Release Intensity/Depth Moderate Body Position Sidelying Comments worked on attachments of the gluteals around the lateral border of the sacrum hamstring Body Location B proximal Mobilization Type Cross-Friction,Instrument Assisted,Myofascial Release, Strumming Intensity/Depth Moderate Body Position modified quadruped over wedge /pillows Comments cupping & cross friction massage- good feedback response. quad release B Body Location bilateral quad Mobilization Type Instrument Assisted,Myofascial Release Body Position Hooklying Comments cupping c/ gentle MFglides and strumming post. right sided adductor release Body Location B Mobilization Type Instrument Assisted,Myofascial Release Intensity/Depth Superficial Body Position Hooklying Comments cupping c/ gentle MFglides and strumming post. PT-OP-T Assessment and Plan Start: 04/14/23 08:00 Freq: Status: Active Protocol: Document 06/30/23 09:50 [facility] (Rec: 06/30/23 16:50 [facility] [id number]) Physical Therapy Assessment Goals 3 Impairment decreased lumbar and hip ROM s /p radiation therapy Short Term Goal (STG) Tami is educated in a home stretching and flexibility program for the hips, low back and pelvis GOAL MET STG Duration 4 weeks Datacap Developer Goal (LTG) With manual therapy work to address fascial restrictions and tightness as well as work on exercises and stretches to improve ROM Tami is able to return to ROM with is WFL goal met LTG Duration 12 weeks 2 Impairment fecal incontinence Datacap Developer Goal (LTG) With both manual therapy work to reduce scar tissue in the pelvic floor and rectum as well as strengthening for the pelvic floor Tami reports significant reduction in fecal incontinence Some progress 1 Impairment radiation induced myofascial restrictions in the low back, abdomen and pelvis limiting Tami's ability to engage in her recreational activites such as yoga Datacap Developer Goal (LTG) Tami is able to return to recreational activities such as yoga and feels overall more mobility in her pelvis, abdomen, and low back good progress LTG Duration 12 weeks Assessment Summary Assessment Tami is doing so much better with hip mobility overall. She is still sore from her fall in her rib cage so we didn't do any work over her sacrum but she is also feling better there. NExt visit will assess working on pelvic floor Physical Therapy Plan Frequency and Duration Frequency of Treatment 2x/Week Duration of treatment (weeks) 8 Plan of Care Start Date 06/30/23 Plan of Care End Date 09/15/23 Therapeutic Interventions Therapeutic Interventions Home Exercise Program,Joint Mobilizations,Manual Therapy, Patient/Caregiver Education, Self-Care/Home Management,Soft Tissue Mobilization, Therapeutic Exercises Next Visit Focus/Plan Next Note Type Treatment Note Next Visit Plan work on MFR for the pelvic floor, mobility of the sacrum and how Tami is doing with the dilator
--- NOTE | 2023-06-30 18:45 | PT.OPPOC ---
Physical, Occupational & Speech Therapy At [facility] Current Diagnoses Malignant neoplasm of rectum (06/30/23) Other specified disorders of the skin and subcutaneous tissue related to radiation (06/30/23) Muscle spasm of back (06/30/23) Other reduced mobility (06/30/23) Visit Care Team Role Provider Type Camilla Burt PA-C Attending Provider Advanced Alterations Manager Family Provider Primary Care Provider Referring Provider Specialty: Medical Address: [address] [place] [address], [id number] Email: Plan Of Care PT-OP-T Assessment and Plan Start: 04/14/23 08:00 Freq: Status: Active Protocol: Document 06/30/23 09:50 [facility] (Rec: 06/30/23 16:50 [facility] [id number]) Physical Therapy Assessment Goals 3 Impairment decreased lumbar and hip ROM s /p radiation therapy Short Term Goal (STG) Tami is educated in a home stretching and flexibility program for the hips, low back and pelvis GOAL MET STG Duration 4 weeks Senior Living Goal (LTG) With manual therapy work to address fascial restrictions and tightness as well as work on exercises and stretches to improve ROM Tami is able to return to ROM with is WFL goal met LTG Duration 12 weeks 2 Impairment fecal incontinence Purchasing Administrator Goal (LTG) With both manual therapy work to reduce scar tissue in the pelvic floor and rectum as well as strengthening for the pelvic floor Tami reports significant reduction in fecal incontinence Some progress 1 Impairment radiation induced myofascial restrictions in the low back, abdomen and pelvis limiting Tami's ability to engage in her recreational activites such as yoga Purchasing Administrator Goal (LTG) Tami is able to return to recreational activities such as yoga and feels overall more mobility in her pelvis, abdomen, and low back good progress LTG Duration 12 weeks Assessment Summary Assessment Tami is doing so much better with hip mobility overall. She is still sore from her fall in her rib cage so we didn't do any work over her sacrum but she is also feling better there. NExt visit will assess working on pelvic floor Physical Therapy Plan Frequency and Duration Frequency of Treatment 2x/Week Duration of treatment (weeks) 8 Plan of Care Start Date 06/30/23 Plan of Care End Date 09/15/23 Therapeutic Interventions Therapeutic Interventions Home Exercise Program,Joint Mobilizations,Manual Therapy, Patient/Caregiver Education, Self-Care/Home Management,Soft Tissue Mobilization, Therapeutic Exercises Next Visit Focus/Plan Next Note Type Treatment Note Next Visit Plan work on MFR for the pelvic floor, mobility of the sacrum and how Tami is doing with the dilator Plan of Care Dates Plan of Care Start Date 06/30/23 Plan of Care End Date 09/15/23 Electronically Signed by: Veronica Viera, PT 07/05/23 [id number] If you are in agreement with this Plan of Care, please return a signed and dated copy. I have reviewed this Plan of Care and certify that the skilled therapy services above are required to meet the patient?s needs. Physician Signature Date Printed Name and Credentials Clinical Instructor Signature Printed Name and Credentials
--- NOTE | 2023-07-12 13:09 | PT.OTN ---
Current Diagnoses Malignant neoplasm of rectum (07/12/23) Other specified disorders of the skin and subcutaneous tissue related to radiation (07/12/23) Muscle spasm of back (07/12/23) Other reduced mobility (07/12/23) Physical Therapy Treatment Note PT-OP-A Visit Information Start: 04/14/23 08:00 Freq: Status: Active Protocol: Document 07/12/23 10:34 [facility] (Rec: 07/12/23 11:19 [facility] [id number]) Out-Patient Physical Therapy Visit Information Visit Information Visit Type Treatment Note Visit Start Time 10:35 Visit Stop Time 11:10 Total Visit Minutes 35 Visit Number 11 PT-OP-B Current Condition Start: 04/14/23 08:00 Freq: Status: Active Protocol: Document 04/14/23 08:05 [facility] (Rec: 04/14/23 09:22 [facility] [id number]) Current Condition History of Current Condition Onset Date November 2022 Current Complaints decreased mobility, pelvic tightness, fecal incontinence s/p radiation History of Current Condition tami reports she did 6 weeks of radiation at [facility] for anal cancer, she is feeling very limited afterwards , her yoga moves she did before treatment she is now unable to do, tami decribes her symptoms as a lack of mobility. Her radiation started in september and went 6 weeks ending November 26. Anal cancer Chemo infusion x 2 weeks due to platelets dropping so much. SHe has difficulty with things like laying on her side with knees bent to sleep and she is no longer able to rest her ankle on the opposite knee for a hip stretch. She feels tight in her low back and is no longer able to bend forward touching her hands to the floor She has pain with bowel movements and has horrible GI issues and he stool is more like ribbons and going to the bathroom multiple times per day. She is on imodium now and is seeing a dietition to help with her stool Treatment Goals Patient/Caregiver Goals Treatment goals include increasing mobility and decreasing tightness, working on scar tissue in the rectum to improve bowel movements and pelvic floor work to release tension PT-OP-C Subjective Start: 04/14/23 08:00 Freq: Status: Active Protocol: Document 07/12/23 10:34 [facility] (Rec: 07/12/23 11:19 [facility] [id number]) OP-PT Subjective Patient Comments Patient Comments pt wants us to check her pelvis today to check for alignment. She notes no complaints of pain or stiffness from her sacrum now PT-OP-F Manual Assessment Start: 04/14/23 08:00 Freq: Status: Active Protocol: Document 04/14/23 08:08 [facility] (Rec: 04/14/23 09:22 [facility] [id number]) Manual Assessments Soft Tissue Assessment Soft Tissue Mobility Assessment right adducted hypertonicity at the pubic bone atachment left greater than right side iliopsoas tightness descending colon tightness on the left side of the abdominal wall tenderness left side of the sacral GANESH's and ischium tightness right greater than left side paraspinals swelling at the L5S1 junction PT-OP-J Posture/Palpation/Skin Start: 04/14/23 08:00 Freq: Status: Active Protocol: Document 04/14/23 08:05 [facility] (Rec: 04/14/23 16:58 [facility] [id number]) Palpation Assessment Location L5-S1 and sacral base swelling Palpation Findings Edema Palpation Details edema noted at the base of the sacrum, trial of kinesiotape star pattern for swelling reduction was done today 3 Palpation Location sacral GANESH's Palpation Findings Soft Tissue Tightness,Muscle Guarding,Tenderness Palpation Details left greater than right side deep gluteal and deep pelvic floor tightness 2 Palpation Location right sided adductor guarding and spasm, proximal attachment Palpation Findings Soft Tissue Tightness,Spasm, Muscle Guarding left lateral wall of the abdomen and descending colon Palpation Findings Soft Tissue Tightness Palpation Details tenderness and myofascial tightness along the descending colon on the left side of the abdominal wall PT-OP-K Range of Motion Start: 04/14/23 16:59 Freq: Status: Active Protocol: Document 04/14/23 08:05 [facility] (Rec: 04/14/23 17:03 [facility] [id number]) Lumbar Spine Range of Motion Lumbar Spine Active Testing Position Standing Flexion 50 Lateral Flexion Left 8 Lateral Flexion Right 10 ROM Limitations Soft Tissue Tightness,Muscle Tone Carolee Garrett notes since radiation treatments she has been much tighter in her low back and hip and lacks the ROM to touch the floor with her hands. She is guarded more the right side side of the paraspinals and can feel tightness restricting her with sidebends expecially to the left Hip Goniometric Range of Motion Hip Left Hip ROM WFL No Flexion w/Knee Flexed 110 Straight Leg Raise 50 External Rotation 20 Comments pt is no longer able to rest her heel on opp knee for piriformis stretch Right Hip ROM WFL No Flexion w/Knee Flexed 105 Straight Leg Raise 55 Extension 5 External Rotation 20 Comments pt is no longer able to rest her heel on opp knee for piriformis stretch Hip ROM Limitations Hip ROM Limitations Soft Tissue Tightness, Contracture,Muscle Tone,Pain Comments right sided proximal adductor tightness following radiation treatments limits hip ROM and mobility PT-OP-Q Treatments Start: 04/14/23 13:56 Freq: Status: Active Protocol: Document 07/12/23 10:34 [facility] (Rec: 07/12/23 11:19 [facility] [id number]) Manual Therapy Treatment Soft Tissue Mobilization quad release B Body Location bilateral quad Mobilization Type Instrument Assisted,Myofascial Release Body Position Hooklying Comments cupping c/ gentle MFglides and strumming post. right sided adductor release Body Location B Mobilization Type Instrument Assisted,Myofascial Release Intensity/Depth Superficial Body Position Hooklying Comments cupping c/ gentle MFglides and strumming post. Taping kinesiotape for the sacrum Comments star pattern kinesiotape performed for reducing swelling over the sacrum Manual Techniques manual iliopsoas stretch Type bilateral iliopsoas release Comments Tami was able to lay on her back for bilateral release PT-OP-T Assessment and Plan Start: 04/14/23 08:00 Freq: Status: Active Protocol: Document 07/12/23 10:35 [facility] (Rec: 07/12/23 13:07 [facility] [id number]) Physical Therapy Assessment Goals 3 Impairment decreased lumbar and hip ROM s /p radiation therapy Short Term Goal (STG) Tami is educated in a home stretching and flexibility program for the hips, low back and pelvis GOAL MET STG Duration 4 weeks Sap Specialist Goal (LTG) With manual therapy work to address fascial restrictions and tightness as well as work on exercises and stretches to improve ROM Tami is able to return to ROM with is WFL goal met LTG Duration 12 weeks 2 Impairment fecal incontinence Snf Goal (LTG) With both manual therapy work to reduce scar tissue in the pelvic floor and rectum as well as strengthening for the pelvic floor Tami reports significant reduction in fecal incontinence Some progress 1 Impairment radiation induced myofascial restrictions in the low back, abdomen and pelvis limiting Tami's ability to engage in her recreational activites such as yoga Snf Goal (LTG) Tami is able to return to recreational activities such as yoga and feels overall more mobility in her pelvis, abdomen, and low back good progress LTG Duration 12 weeks Assessment Summary Assessment Tami continues to show great improvement with her mobility. I rechecked her sacrum today and she is no longer tender along the sacral GANESH's. prone knee flexion does still cause increase in lumbar lordosis and there is still some swelling present but overall this is much decreased. I did tape her again with kinesiotape today for swelling reduction. Physical Therapy Plan Next Visit Focus/Plan Next Note Type Treatment Note Next Visit Plan Tami has one visit left and we will review all her stretches and exercises
--- NOTE | 2023-07-14 15:01 | PT.OTN ---
Current Diagnoses Malignant neoplasm of rectum (07/14/23) Other specified disorders of the skin and subcutaneous tissue related to radiation (07/14/23) Muscle spasm of back (07/14/23) Other reduced mobility (07/14/23) Physical Therapy Treatment Note PT-OP-A Visit Information Start: 04/14/23 08:00 Freq: Status: Active Protocol: Document 07/14/23 10:37 [facility] (Rec: 07/14/23 11:11 [facility] [id number]) Out-Patient Physical Therapy Visit Information Visit Information Visit Type Treatment Note Visit Start Time 10:30 Visit Stop Time 10:45 Total Visit Minutes 15 Visit Number 12 PT-OP-B Current Condition Start: 04/14/23 08:00 Freq: Status: Active Protocol: Document 04/14/23 08:05 [facility] (Rec: 04/14/23 09:22 [facility] [id number]) Current Condition History of Current Condition Onset Date November 2022 Current Complaints decreased mobility, pelvic tightness, fecal incontinence s/p radiation History of Current Condition tami reports she did 6 weeks of radiation at [facility] for anal cancer, she is feeling very limited afterwards , her yoga moves she did before treatment she is now unable to do, tami decribes her symptoms as a lack of mobility. Her radiation started in september and went 6 weeks ending November 26. Anal cancer Chemo infusion x 2 weeks due to platelets dropping so much. SHe has difficulty with things like laying on her side with knees bent to sleep and she is no longer able to rest her ankle on the opposite knee for a hip stretch. She feels tight in her low back and is no longer able to bend forward touching her hands to the floor She has pain with bowel movements and has horrible GI issues and he stool is more like ribbons and going to the bathroom multiple times per day. She is on imodium now and is seeing a dietition to help with her stool Treatment Goals Patient/Caregiver Goals Treatment goals include increasing mobility and decreasing tightness, working on scar tissue in the rectum to improve bowel movements and pelvic floor work to release tension PT-OP-C Subjective Start: 04/14/23 08:00 Freq: Status: Active Protocol: Document 07/14/23 10:37 [facility] (Rec: 07/14/23 11:11 [facility] [id number]) OP-PT Subjective Patient Comments Patient Comments Tami had a pap smear to look at baseline tissue and everything looked good but it was really painful. She also did her one yoga class and she was at about 90 percent better. She is feeling much better overall and feels that she is ready to discharge from PT to work independently Patient Reported Progress Improving PT-OP-F Manual Assessment Start: 04/14/23 08:00 Freq: Status: Active Protocol: Document 04/14/23 08:08 [facility] (Rec: 04/14/23 09:22 [facility] [id number]) Manual Assessments Soft Tissue Assessment Soft Tissue Mobility Assessment right adducted hypertonicity at the pubic bone atachment left greater than right side iliopsoas tightness descending colon tightness on the left side of the abdominal wall tenderness left side of the sacral GANESH's and ischium tightness right greater than left side paraspinals swelling at the L5S1 junction PT-OP-J Posture/Palpation/Skin Start: 04/14/23 08:00 Freq: Status: Active Protocol: Document 04/14/23 08:05 [facility] (Rec: 04/14/23 16:58 [facility] [id number]) Palpation Assessment Location L5-S1 and sacral base swelling Palpation Findings Edema Palpation Details edema noted at the base of the sacrum, trial of kinesiotape star pattern for swelling reduction was done today 3 Palpation Location sacral GANESH's Palpation Findings Soft Tissue Tightness,Muscle Guarding,Tenderness Palpation Details left greater than right side deep gluteal and deep pelvic floor tightness 2 Palpation Location right sided adductor guarding and spasm, proximal attachment Palpation Findings Soft Tissue Tightness,Spasm, Muscle Guarding left lateral wall of the abdomen and descending colon Palpation Findings Soft Tissue Tightness Palpation Details tenderness and myofascial tightness along the descending colon on the left side of the abdominal wall PT-OP-K Range of Motion Start: 04/14/23 16:59 Freq: Status: Active Protocol: Document 04/14/23 08:05 [facility] (Rec: 04/14/23 17:03 [facility] [id number]) Lumbar Spine Range of Motion Lumbar Spine Active Testing Position Standing Flexion 50 Lateral Flexion Left 8 Lateral Flexion Right 10 ROM Limitations Soft Tissue Tightness,Muscle Tone Comments Tami notes since radiation treatments she has been much tighter in her low back and hip and lacks the ROM to touch the floor with her hands. She is guarded more the right side side of the paraspinals and can feel tightness restricting her with sidebends expecially to the left Hip Goniometric Range of Motion Hip Left Hip ROM WFL No Flexion w/Knee Flexed 110 Straight Leg Raise 50 External Rotation 20 Comments pt is no longer able to rest her heel on opp knee for piriformis stretch Right Hip ROM WFL No Flexion w/Knee Flexed 105 Straight Leg Raise 55 Extension 5 External Rotation 20 Comments pt is no longer able to rest her heel on opp knee for piriformis stretch Hip ROM Limitations Hip ROM Limitations Soft Tissue Tightness, Contracture,Muscle Tone,Pain Comments right sided proximal adductor tightness following radiation treatments limits hip ROM and mobility PT-OP-Q Treatments Start: 04/14/23 13:56 Freq: Status: Active Protocol: Document 07/14/23 14:54 [facility] (Rec: 07/14/23 15:00 [facility] [id number]) Self-Care/Home Management Treatment Education Patient Education Home Exercise Program,Pain Management Other Education education on dilator use and progression with stretching PT-OP-T Assessment and Plan Start: 04/14/23 08:00 Freq: Status: Active Protocol: Document 07/14/23 14:54 [facility] (Rec: 07/14/23 15:00 [facility] [id number]) Physical Therapy Assessment Goals 3 Impairment decreased lumbar and hip ROM s /p radiation therapy Short Term Goal (STG) Tami is educated in a home stretching and flexibility program for the hips, low back and pelvis GOAL MET STG Duration 4 weeks [employer] Supervisor Goal (LTG) With manual therapy work to address fascial restrictions and tightness as well as work on exercises and stretches to improve ROM Tami is able to return to ROM with is WFL goal met LTG Duration 12 weeks 2 Impairment fecal incontinence [employer] Supervisor Goal (LTG) With both manual therapy work to reduce scar tissue in the pelvic floor and rectum as well as strengthening for the pelvic floor Tami reports significant reduction in fecal incontinence goal met and Tami is no longer experiencing fecal incontinence 1 Impairment radiation induced myofascial restrictions in the low back, abdomen and pelvis limiting Tami's ability to engage in her recreational activites such as yoga [employer] Supervisor Goal (LTG) Tami is able to return to recreational activities such as yoga and feels overall more mobility in her pelvis, abdomen, and low back excellent progress and Tami has been able to return to her yoga routine stating she is 90 percent better than she was prior to PT LTG Duration 12 weeks Assessment Summary Assessment Tami presents to her appointment today doing really well and feeling as though she could go through her previous yoga routine with 90% of the ability pre radiation. She feels independent with her exercises and just wanted to touch base today for her appt. We reveiwed dilator use and she was shown silicone dilators from [facility] as another option for her. I encouraged her to continue to work on pelvic floor stretching with the dilator. At this time she will be discharged from PT Physical Therapy Plan Discharge Physical Therapy Discharge Reasons Goals Met Discharge Comments pt will be discharged to a [facility]
== END 2023-07-22 07:51 | disposition home or self-care (01) ==
LOC: PHYS 10:30
PROVIDERS: Family Provider Physician Assistant; PCP Physician Assistant; Referring Provider Physician Assistant; Visit Provider Physician Assistant
DX: C20 Malignant neoplasm of rectum (principal); M62.830 Muscle spasm of back; L59.8 Other specified disorders of the skin and subcutaneous tissue related to radiation; Z74.09 Other reduced mobility
CPT/HCPCS: 97110; 97140; 97161; 97535

== ENCOUNTER → 2023-12-28 11:19 | Outpatient (CLI) | payer OTHER, SELFPAY ==
[2022-11-23 19:36] VITALS: BMI 23.4
--- NOTE | 2023-12-28 11:21 | DI.MG.S_ITS ---
BILATERAL DIGITAL SCREENING MAMMOGRAM 3D/2D WITH CAD: 12/28/2023 CLINICAL: Routine screening. Comparison is made to exams dated: 12/24/2021 mammogram, 06/11/2019 mammogram, and 09/16/2017 mammogram - [facility]. There are scattered areas of fibroglandular density in both breasts (category b / 25%-50% glandular tissue). Current study was also evaluated with a Computer Aided Detection (CAD) system. There are benign post operative findings in the right breast. No significant masses, calcifications, or other findings are seen in either breast. There has been no significant interval change. IMPRESSION: BENIGN There is no mammographic evidence of malignancy. A 1 year screening mammogram is recommended. Based on the Tyrer Cuzick model (a risk assessment model) the patient's lifetime risk is 6.3% and her 10 year risk is 2.9%. According to the ACR, ACS, and NCCN guidelines, an annual breast MRI exam along with mammogram is recommended if the patient's lifetime risk is 20% or greater. This exam was interpreted at Station ID: [id number]. NOTE: For mammograms, a report in lay terms will be sent to the patient. Approximately 15% of breast malignancies will not be visualized mammographically. In the management of a palpable breast mass, a negative mammogram must not discourage biopsy of a clinically suspicious lesion. Electronically Signed By: Sterling hernandez/agatha:12/28/2023 13:24:08 copy to: Jasson Arriaga letter sent: Normal Exam ACR BI-RADS Category 2: Benign Finding(s) [id number]
== END ==
LOC: MAMMO 11:21
PROVIDERS: Family Provider Physician Assistant; PCP Physician Assistant; Referring Provider Physician Assistant; Visit Provider Physician Assistant
DX: Z12.31 Encounter for screening mammogram for malignant neoplasm of breast (principal); R92.323 Mammographic fibroglandular density, bilateral breasts
CPT/HCPCS: 77063; 77067

== ENCOUNTER → 2024-04-12 12:47 | Outpatient (CLI) | payer OTHER, SELFPAY ==
[2022-11-23 19:36] VITALS: BMI 23.4
--- NOTE | 2024-04-12 12:48 | DI.RAD.S_ITS ---
PROCEDURE: XR DEXA AXIAL SKELETON INDICATIONS: OSTEOPOROSIS COMPARISON: None. FINDINGS: Lumbar Spine: Bone mineral density 0.984 g/cm2, T score -0.6 Left Hip: Bone mineral density 0.773 g/cm2, T score -1.4 Right Hip: Bone mineral density 0.713 g/cm2, T score -1.9 Fracture Risk Calculation (when applicable): 10-year fracture risk of a major osteoporotic fracture 9.3 percent and of a hip fracture 1.2 percent. (T score greater or equal to -1.0 to: NORMAL) (T score from -1.1 to -2.4: OSTEOPENIA) (T score less than or equal to -2.5: OSTEOPOROSIS) IMPRESSION: 1. Normal bone density of the lumbar spine. 2. Osteopenia of the hips. Follow-up guidelines as follows: Osteoporosis: Consider a repeat DEXA and Vertebral Fracture Assessment (VFA) exam in 2 years or sooner if medically necessary, to reassess this patient's status. Osteopenia: Consider a repeat DEXA in 2-3 years to reassess this patient's status, or if there is a new clinical indication. Normal: Consider a repeat DEXA in 5 years or sooner, or if there is a new clinical indication. All treatment decisions require clinical judgment and consideration of individual patient factors, including patient preferences, comorbidities, previous drug use, risk factors not captured in the FRAX model (e.g., frailty, falls, vitamin D deficiency, increased bone turnover, interval significant decline in bone density ) and possible under- or over-estimation of fracture risk by FRAX. In addition, the NOF Guide recommends that FDA-approved medical therapies be considered in postmenopausal women and men age >= 50 years with a: * Hip or vertebral (clinical or morphometric) fracture * T-score of <=-2.5 at the spine or hip * Ten-year fracture probability by FRAX of >= 3% for hip fracture or >=20% for major osteoporotic fracture. People with diagnosed cases of osteoporosis or at high risk for fracture should have regular bone mineral density tests. For patients eligible for Medicare, routine testing is allowed once every 2 years. The testing frequency can be increased to one year for patients who have rapidly progressing disease, those who are receiving or discontinuing medical therapy to restore bone mass, or have additional risk factors. Dictated by: Nestor Matos M.D. on 04/13/2024 at 14:38 Approved by: Nestor Matos M.D. on 04/13/2024 at 14:40
== END ==
PROVIDERS: Family Provider Physician Assistant; PCP Physician Assistant; Referring Provider Physician Assistant; Visit Provider Physician Assistant
DX: Z13.820 Encounter for screening for osteoporosis (principal); M85.89 Other specified disorders of bone density and structure, multiple sites
CPT/HCPCS: 77080

== ENCOUNTER 2024-09-04 14:30 | Outpatient (RCR) | payer MEDICARE, OTHER, SELFPAY ==
[2022-11-23 19:36] VITALS: BMI 23.4
--- NOTE | 2024-07-17 16:41 | PT.OIE ---
Current Diagnoses Malignant neoplasm of anus, unspecified (07/17/24) Disorder of the skin and subcutaneous tissue related to radiation, unspecified (07/17/24) Other specified disorders of muscle (07/17/24) Other reduced mobility (07/17/24) Past Medical History (Last Reviewed 02/20/23 @ 20:51 by Griffin Dunham DO) Chicken pox (~1966) Foot pain (~1993) Kidney stones Past Surgical History (Last Reviewed 02/20/23 @ 20:51 by Griffin Dunham DO) Status post dilation and curettage (~1981) Status post dilation and curettage (~1988) Visit Care Team Role Provider Type Camilla Burt PA-C Attending Provider [employer] And Adjuster Family Provider Primary Care Provider Referring Provider Specialty: Medical Address: [address] [place] [address], [facility] Email: Physical Therapy Initial Evaluation PT-OP-A Visit Information Start: 07/17/24 10:42 Freq: Status: Active Protocol: Document 07/17/24 13:00 [facility] (Rec: 07/17/24 16:25 [facility] [id number]) Out-Patient Physical Therapy Visit Information Visit Information Visit Type Initial Evaluation Visit Start Time 13:00 Visit Stop Time 13:45 Visit Number 1 PT-OP-B Current Condition Start: 07/17/24 10:42 Freq: Status: Active Protocol: Document 07/17/24 13:00 [facility] (Rec: 07/17/24 13:52 [facility] [id number]) Current Condition History of Current Condition Onset Date 2 years ago pt underwent treatment for anal cancer including radation/chemo Current Complaints radiation induced rectal bleeding,rectal and pelvic floor tightness History of Current Condition pt has her two year appt s/p anal cancer coming up. She feels really locked up and stiff in her hips She isn't feeling the fecal incontinence has really resolved itself. In the am she needs to go to the bathroom right away. She does have slight bleeding from little tears with bowel movements due to radiation. She is experiencing a lot of cramping and any twisting or rotations with her hips feels really tight. She also had a episode of rectal bleeding after a chiropractic appt with work on her sacrum. She does get a cramp in the front of the smiley that wakes her up at night. 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 PT-OP-C Subjective Start: 07/17/24 10:42 Freq: Status: Active Protocol: Document 07/17/24 13:00 [facility] (Rec: 07/19/24 16:36 [facility] [id number]) OP-PT Pain Assessment Pain Assessment Grid Paper Pain Assessment Grid Completed Yes Location pelvic floor and pelvic pain Pain Location Details pt describes symptoms as tightness and lack of mobility vs pain PT-OP-F Manual Assessment Start: 07/17/24 10:42 Freq: Status: Active Protocol: Document 07/17/24 13:00 [facility] (Rec: 07/19/24 16:36 [facility] [id number]) Manual Assessments Soft Tissue Assessment Soft Tissue Mobility Assessment tightness in the soft tissue on either side of the sacrum, perienum, and attachments to the ischium PT-OP-K Range of Motion Start: 07/19/24 16:34 Freq: Status: Active Protocol: Document 07/17/24 13:00 [facility] (Rec: 07/19/24 16:39 [facility] [id number]) Lumbar Spine Range of Motion Lumbar Spine Active Testing Position Standing Flexion 50 ROM Limitations Soft Tissue Tightness Hip Goniometric Range of Motion Hip Right Testing Position Supine Flexion w/Knee Flexed 115 Extension 0 External Rotation 20 Left Hip ROM WFL No Testing Position Supine Flexion w/Knee Flexed 115 Extension 5 External Rotation 20 Comments piriformis stretch is difficult and Jennifer describes tightness with hip ER Hip ROM Limitations Hip ROM Limitations Soft Tissue Tightness Comments radiation induced tightness throughout the pelvis limited hip ROM PT-OP-Q Treatments Start: 07/17/24 10:42 Freq: Status: Active Protocol: Document 07/17/24 16:25 [facility] (Rec: 07/17/24 16:26 [facility] [id number]) Therapeutic Exercises Supine Exercises modified pelvic floor squat stretch Reps/Minutes 2 x 1-2 min holds Prone Exercises prone hip IR/ER dynamic movement Reps/Minutes 10-20 reps PT-OP-T Assessment and Plan Start: 07/17/24 10:42 Freq: Status: Active Protocol: Document 07/17/24 13:00 [facility] (Rec: 07/19/24 16:33 [facility] [id number]) Physical Therapy Assessment Rehab Potential Rehabilitation Potential Good Evaluation Complexity Number of Personal Factors/Comorbidities 1-2 Number of Body Systems Impaired 1-2 Clinical Presentation at Evaluation Stable Goals 3 Impairment decreased lumbar and hip ROM s /p radiation therapy Short Term Goal (STG) Jennifer is educated in a home stretching program for the hips, low back, and pelvis STG Duration 4 weeks Care Home Goal (LTG) With manual therapy work to address fascial restrictions and tightness Rach is able to return to [facility] for her lumbar and hip ROM LTG Duration 12 weeks 2 Impairment pt is now sitting for work and presents with tightness in the hip flexors and hip ER bilaterally Short Term Goal (STG) Jennifer is educated in ergonomic set up including rest breaks to get up and stretch STG Duration 4 weeks Care Home Goal (LTG) jennifer presents with improved mobility of the hip musculature and is implamenting her stretches into her daily routine LTG Duration 12 weeks 1 Impairment radiation induced myofascial restrictions in the low back, abdomen and pelvis limiting Jennifer's ability to engage in her recreational activites such as yoga Care Home Goal (LTG) jennifer is able to return to recreational activities such as yoga and feels overall mobility in her pelvis, abdomen, and low back LTG Duration 12 weeks Assessment Summary Assessment Jennifer is a 64 year old active female wo returns to PT today with increasing c/o pelvic tightness and decreased mobility in her hips and low back. She is 2 years post radiation for anal cancer. She was seen here for PT a year ago and did well with fascial release and manual therapy work. She has returned back to work which involves sitting and she feels she has gotten tight again in her pelvis. She has had some episodes of rectal bleeding following a chiropractic work to her sacrum and at times after bowel movements. She feels limited with her stretches at this time and that her body feels tight. She does report she is not experiencing urinary incontinence and she feels she has her stool consistency right so that she is not experiencing fecal incontinence. Jennifer presents with fascial restrictions across the abdomen and sacral/pelvic region. She is guarded in her iliopsoas B and with external pelvic floor assessment she feels tight and guarded. She is limited with her hip mobility bilaterally into hip rotation. Jennifer reports she has a upcoming pelvic exam and she is concerned she will be too tight for the exam. We discussed assessing internal pelvic floor next visit and working on MFR techniques. I feel there is a very good chance she has a good amout of scarring internally and would benefit from manual therapy techniques . Jennifer does have a small dilator she will return to using to start working on her pelvic floor relaxation. I did start her with a pelvic floor stretch and hip stretch for hip IR/ER. Jennifer is a good candidate for PT as she would like to return to her yoga routine and improve her overall mobility. Physical Therapy Plan Frequency and Duration Frequency of Treatment 2x/Week Duration of treatment (weeks) 12 Plan of Care Start Date 07/17/24 Plan of Care End Date 10/09/24 Therapeutic Interventions Therapeutic Interventions Home Exercise Program,Manual Therapy,Patient/Caregiver Education,Self-Care/Home Management,Soft Tissue Mobilization,Therapeutic Exercises Next Visit Focus/Plan Next Note Type Treatment Note Next Visit Plan pelvic floor assessment next visit and begin MFR techniques for the pelvic floor and anterior pelvis, work on hip stretching for the iliopsoas and hip rotators
--- NOTE | 2024-07-24 16:26 | PT.OTN ---
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, unspecified (07/24/24) Other specified disorders of muscle (07/24/24) Other reduced mobility (07/24/24) Physical Therapy Treatment Note PT-OP-A Visit Information Start: 07/17/24 10:42 Freq: Status: Active Protocol: Document 07/24/24 13:48 [facility] (Rec: 07/24/24 13:57 [facility] [id number]) Out-Patient Physical Therapy Visit Information Visit Information Visit Type Treatment Note Visit Start Time 13:46 Visit Stop Time 14:30 Visit Number 2 PT-OP-B Current Condition Start: 07/17/24 10:42 Freq: Status: Active Protocol: Document 07/17/24 13:00 [facility] (Rec: 07/17/24 13:52 [facility] [id number]) Current Condition History of Current Condition Onset Date 2 years ago pt underwent treatment for anal cancer including radation/chemo Current Complaints radiation induced rectal bleeding,rectal and pelvic floor tightness History of Current Condition pt has her two year appt s/p anal cancer coming up. She feels really locked up and stiff in her hips She isn't feeling the fecal incontinence has really resolved itself. In the am she needs to go to the bathroom right away. She does have slight bleeding from little tears with bowel movements due to radiation. She is experiencing a lot of cramping and any twisting or rotations with her hips feels really tight. She also had a episode of rectal bleeding after a chiropractic appt with work on her sacrum. She does get a cramp in the front of the smiley that wakes her up at night. 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 PT-OP-C Subjective Start: 07/17/24 10:42 Freq: Status: Active Protocol: Document 07/24/24 13:48 [facility] (Rec: 07/24/24 13:57 [facility] [id number]) OP-PT Subjective Patient Comments Patient Comments pt notes just using the visuals she was able to relax her pelvic floor she feels tighter on the left adductor as well. She has made herself do the dilator every day, tomorrow she has to have a pap exam. SHe notes she feels like 8 oclock is where she is tighter on the lower left side PT-OP-F Manual Assessment Start: 07/17/24 10:42 Freq: Status: Active Protocol: Document 07/17/24 13:00 [facility] (Rec: 07/19/24 16:36 [facility] [id number]) Manual Assessments Soft Tissue Assessment Soft Tissue Mobility Assessment tightness in the soft tissue on either side of the sacrum, perienum, and attachments to the ischium PT-OP-K Range of Motion Start: 07/19/24 16:34 Freq: Status: Active Protocol: Document 07/17/24 13:00 [facility] (Rec: 07/19/24 16:39 [facility] [id number]) Lumbar Spine Range of Motion Lumbar Spine Active Testing Position Standing Flexion 50 ROM Limitations Soft Tissue Tightness Hip Goniometric Range of Motion Hip Right Testing Position Supine Flexion w/Knee Flexed 115 Extension 0 External Rotation 20 Left Hip ROM WFL No Testing Position Supine Flexion w/Knee Flexed 115 Extension 5 External Rotation 20 Comments piriformis stretch is difficult and Tami describes tightness with hip ER Hip ROM Limitations Hip ROM Limitations Soft Tissue Tightness Comments radiation induced tightness throughout the pelvis limited hip ROM PT-OP-Q Treatments Start: 07/17/24 10:42 Freq: Status: Active Protocol: Document 07/24/24 16:19 [facility] (Rec: 07/24/24 16:25 [facility] [id number]) Manual Therapy Treatment Soft Tissue Mobilization left adductor release Mobilization Type Myofascial Release Intensity/Depth Moderate Body Position Supine Comments MFR left adductors proximal attachment fasical release of the left side of the levator ani coccygeus and illiococcygeus Mobilization Type Myofascial Release Intensity/Depth Moderate Body Position Hooklying Comments left side of the coccygeus and illiococcygeus fascial release on the left side. The levator ani was assessed today and it is the left side that is guarded and tight. No tenderness or tightness on the right side of the levator ani PT-OP-T Assessment and Plan Start: 07/17/24 10:42 Freq: Status: Active Protocol: Document 07/24/24 16:19 [facility] (Rec: 07/24/24 16:25 [facility] [id number]) Physical Therapy Assessment Assessment Summary Assessment Tami has a exam for pap smear tomorrow and I assured her that she will be able to have this done as I didn't feel scar tissue in the vaginal wall but mainly guarding and tightness left side. I started MFR for the left wall of her levator ani and she tolerated this well today. I also worked on releasing the left adductor. She may be a candidate for a pelvic wand for self release of the levator ani Physical Therapy Plan Frequency and Duration Frequency of Treatment 2x/Week Duration of treatment (weeks) 12 Plan of Care Start Date 07/17/24 Plan of Care End Date 10/09/24 Therapeutic Interventions Therapeutic Interventions Home Exercise Program,Manual Therapy,Patient/Caregiver Education,Self-Care/Home Management,Soft Tissue Mobilization,Therapeutic Exercises Next Visit Focus/Plan Next Note Type Treatment Note Next Visit Plan continue with MFR for the left side of the pelvic floor and adductors, work along the sacrum on gluteal release
--- NOTE | 2024-07-31 15:45 | PT.OTN ---
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, unspecified (07/31/24) Other specified disorders of muscle (07/31/24) Other reduced mobility (07/31/24) Physical Therapy Treatment Note PT-OP-A Visit Information Start: 07/17/24 10:42 Freq: Status: Active Protocol: Document 07/31/24 13:04 [facility] (Rec: 07/31/24 13:10 [facility] [id number]) Out-Patient Physical Therapy Visit Information Visit Information Visit Type Treatment Note Visit Start Time 13:03 Visit Stop Time 13:45 Visit Number 3 PT-OP-B Current Condition Start: 07/17/24 10:42 Freq: Status: Active Protocol: Document 07/17/24 13:00 [facility] (Rec: 07/17/24 13:52 [facility] [id number]) Current Condition History of Current Condition Onset Date 2 years ago pt underwent treatment for anal cancer including radation/chemo Current Complaints radiation induced rectal bleeding,rectal and pelvic floor tightness History of Current Condition pt has her two year appt s/p anal cancer coming up. She feels really locked up and stiff in her hips She isn't feeling the fecal incontinence has really resolved itself. In the am she needs to go to the bathroom right away. She does have slight bleeding from little tears with bowel movements due to radiation. She is experiencing a lot of cramping and any twisting or rotations with her hips feels really tight. She also had a episode of rectal bleeding after a chiropractic appt with work on her sacrum. She does get a cramp in the front of the smiley that wakes her up at night. 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 PT-OP-C Subjective Start: 07/17/24 10:42 Freq: Status: Active Protocol: Document 07/31/24 13:04 [facility] (Rec: 07/31/24 13:10 [facility] [id number]) OP-PT Subjective Patient Comments Patient Comments pt notes she could feel such a difference from PT last visit and even felt looser on her left side walking out last visit she was able to have a pap test and it didnt hurt at all and her doctor said her tissue looked really good. SHe has her CT scan tomorrow and sees her oncologist Patient Reported Progress Improving PT-OP-F Manual Assessment Start: 07/17/24 10:42 Freq: Status: Active Protocol: Document 07/17/24 13:00 [facility] (Rec: 07/19/24 16:36 [facility] [id number]) Manual Assessments Soft Tissue Assessment Soft Tissue Mobility Assessment tightness in the soft tissue on either side of the sacrum, perienum, and attachments to the ischium PT-OP-K Range of Motion Start: 07/19/24 16:34 Freq: Status: Active Protocol: Document 07/17/24 13:00 [facility] (Rec: 07/19/24 16:39 [facility] [id number]) Lumbar Spine Range of Motion Lumbar Spine Active Testing Position Standing Flexion 50 ROM Limitations Soft Tissue Tightness Hip Goniometric Range of Motion Hip Right Testing Position Supine Flexion w/Knee Flexed 115 Extension 0 External Rotation 20 Left Hip ROM WFL No Testing Position Supine Flexion w/Knee Flexed 115 Extension 5 External Rotation 20 Comments piriformis stretch is difficult and Tami describes tightness with hip ER Hip ROM Limitations Hip ROM Limitations Soft Tissue Tightness Comments radiation induced tightness throughout the pelvis limited hip ROM PT-OP-Q Treatments Start: 07/17/24 10:42 Freq: Status: Active Protocol: Document 07/31/24 13:45 [facility] (Rec: 07/31/24 13:47 [facility] [id number]) Therapeutic Exercises Other Exercises goddess pose Side bilateral Comments pt shown for HEP to help open up the adductors and medial hip Manual Therapy Treatment Soft Tissue Mobilization right sidelying obturator internus release on the left Mobilization Type Myofascial Release Body Position Sidelying Comments pt in right sidelying to release the left OI left transverse perineal release Mobilization Type Myofascial Release Body Position Hooklying left adductor release Mobilization Type Myofascial Release Intensity/Depth Moderate Body Position Supine Comments MFR left adductors proximal attachment PT-OP-T Assessment and Plan Start: 07/17/24 10:42 Freq: Status: Active Protocol: Document 07/31/24 13:00 [facility] (Rec: 07/31/24 15:45 [facility] [id number]) Physical Therapy Assessment Assessment Summary Assessment Tami was able to have her pap exam without difficulty yesterday. She wished to hold off on internal work of the pelvic floor today due to having her exam only yesterday . I worked on external release of the transverse perineum and adductors today and I did try obturator internus release which Tami tolerated well. She was given the goddess pose to add to her HEP Physical Therapy Plan Frequency and Duration Frequency of Treatment 2x/Week Duration of treatment (weeks) 12 Plan of Care Start Date 07/17/24 Plan of Care End Date 10/09/24 Therapeutic Interventions Therapeutic Interventions Home Exercise Program,Manual Therapy,Patient/Caregiver Education,Self-Care/Home Management,Soft Tissue Mobilization,Therapeutic Exercises Next Visit Focus/Plan Next Note Type Treatment Note Next Visit Plan continue with MFR for the left side of the pelvic floor and adductors, work along the sacrum on gluteal release
--- NOTE | 2024-08-07 15:08 | PT.OTN ---
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, unspecified (08/07/24) Other specified disorders of muscle (08/07/24) Other reduced mobility (08/07/24) Physical Therapy Treatment Note PT-OP-A Visit Information Start: 07/17/24 10:42 Freq: Status: Active Protocol: Document 08/07/24 13:47 [facility] (Rec: 08/07/24 14:01 [facility] [id number]) Out-Patient Physical Therapy Visit Information Visit Information Visit Type Treatment Note Visit Start Time 13:45 Visit Stop Time 14:30 Visit Number 4 PT-OP-B Current Condition Start: 07/17/24 10:42 Freq: Status: Active Protocol: Document 07/17/24 13:00 [facility] (Rec: 07/17/24 13:52 [facility] [id number]) Current Condition History of Current Condition Onset Date 2 years ago pt underwent treatment for anal cancer including radation/chemo Current Complaints radiation induced rectal bleeding,rectal and pelvic floor tightness History of Current Condition pt has her two year appt s/p anal cancer coming up. She feels really locked up and stiff in her hips She isn't feeling the fecal incontinence has really resolved itself. In the am she needs to go to the bathroom right away. She does have slight bleeding from little tears with bowel movements due to radiation. She is experiencing a lot of cramping and any twisting or rotations with her hips feels really tight. She also had a episode of rectal bleeding after a chiropractic appt with work on her sacrum. She does get a cramp in the front of the smiley that wakes her up at night. 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 PT-OP-C Subjective Start: 07/17/24 10:42 Freq: Status: Active Protocol: Document 08/07/24 13:47 [facility] (Rec: 08/07/24 14:01 [facility] [id number]) OP-PT Subjective Patient Comments Patient Comments pt notes she still feel really stiff and she did get sick after the contrast dye for her CT scan for 24-36 hours. PT-OP-F Manual Assessment Start: 07/17/24 10:42 Freq: Status: Active Protocol: Document 07/17/24 13:00 [facility] (Rec: 07/19/24 16:36 [facility] [id number]) Manual Assessments Soft Tissue Assessment Soft Tissue Mobility Assessment tightness in the soft tissue on either side of the sacrum, perienum, and attachments to the ischium PT-OP-K Range of Motion Start: 07/19/24 16:34 Freq: Status: Active Protocol: Document 07/17/24 13:00 [facility] (Rec: 07/19/24 16:39 [facility] [id number]) Lumbar Spine Range of Motion Lumbar Spine Active Testing Position Standing Flexion 50 ROM Limitations Soft Tissue Tightness Hip Goniometric Range of Motion Hip Right Testing Position Supine Flexion w/Knee Flexed 115 Extension 0 External Rotation 20 Left Hip ROM WFL No Testing Position Supine Flexion w/Knee Flexed 115 Extension 5 External Rotation 20 Comments piriformis stretch is difficult and Tami describes tightness with hip ER Hip ROM Limitations Hip ROM Limitations Soft Tissue Tightness Comments radiation induced tightness throughout the pelvis limited hip ROM PT-OP-Q Treatments Start: 07/17/24 10:42 Freq: Status: Active Protocol: Document 08/07/24 14:58 [facility] (Rec: 08/07/24 15:07 [facility] [id number]) Manual Therapy Treatment Soft Tissue Mobilization left transverse perineal release Mobilization Type Myofascial Release Body Position Hooklying left adductor release Mobilization Type Myofascial Release Intensity/Depth Moderate Body Position Supine Comments MFR left adductors proximal attachment fasical release of the left side of the levator ani coccygeus and illiococcygeus Mobilization Type Myofascial Release Intensity/Depth Moderate Body Position Hooklying Comments left side of the coccygeus and illiococcygeus fascial release on the left side. The levator ani was assessed today and it is the left side that is guarded and tight. No tenderness or tightness on the right side of the levator ani PT-OP-T Assessment and Plan Start: 07/17/24 10:42 Freq: Status: Active Protocol: Document 08/07/24 14:58 [facility] (Rec: 08/07/24 15:07 [facility] [id number]) Physical Therapy Assessment Assessment Summary Assessment I talked to Tami about using a pelvic wand for self release of the left side of the levator ani. She has the size xsmall dilator but it is difficult to reach the left lateral wall. I worked today on release of the left wall of the levator ani and Tami tolerated this well. She did feel that she had more mobility after leaving PT today Physical Therapy Plan Frequency and Duration Frequency of Treatment 2x/Week Duration of treatment (weeks) 12 Plan of Care Start Date 07/17/24 Plan of Care End Date 10/09/24 Therapeutic Interventions Therapeutic Interventions Home Exercise Program,Manual Therapy,Patient/Caregiver Education,Self-Care/Home Management,Soft Tissue Mobilization,Therapeutic Exercises Next Visit Focus/Plan Next Note Type Treatment Note Next Visit Plan continue with MFR for the left side of the pelvic floor and adductors, work along the sacrum on gluteal release
--- NOTE | 2024-08-14 16:20 | PT.OTN ---
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, unspecified (08/14/24) Other specified disorders of muscle (08/14/24) Other reduced mobility (08/14/24) Physical Therapy Treatment Note PT-OP-A Visit Information Start: 07/17/24 10:42 Freq: Status: Active Protocol: Document 08/14/24 13:02 [facility] (Rec: 08/14/24 13:55 [facility] [id number]) Out-Patient Physical Therapy Visit Information Visit Information Visit Type Treatment Note Visit Start Time 13:00 Visit Stop Time 13:45 Visit Number 5 PT-OP-B Current Condition Start: 07/17/24 10:42 Freq: Status: Active Protocol: Document 07/17/24 13:00 [facility] (Rec: 07/17/24 13:52 [facility] [id number]) Current Condition History of Current Condition Onset Date 2 years ago pt underwent treatment for anal cancer including radation/chemo Current Complaints radiation induced rectal bleeding,rectal and pelvic floor tightness History of Current Condition pt has her two year appt s/p anal cancer coming up. She feels really locked up and stiff in her hips She isn't feeling the fecal incontinence has really resolved itself. In the am she needs to go to the bathroom right away. She does have slight bleeding from little tears with bowel movements due to radiation. She is experiencing a lot of cramping and any twisting or rotations with her hips feels really tight. She also had a episode of rectal bleeding after a chiropractic appt with work on her sacrum. She does get a cramp in the front of the smiley that wakes her up at night. 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 PT-OP-C Subjective Start: 07/17/24 10:42 Freq: Status: Active Protocol: Document 08/14/24 13:02 [facility] (Rec: 08/14/24 13:55 [facility] [id number]) OP-PT Subjective Patient Comments Patient Comments CT scan came back without any issues She is on day 8 of no sugar and she feels that the stiffness is better without the sugar PT-OP-F Manual Assessment Start: 07/17/24 10:42 Freq: Status: Active Protocol: Document 07/17/24 13:00 [facility] (Rec: 07/19/24 16:36 [facility] [id number]) Manual Assessments Soft Tissue Assessment Soft Tissue Mobility Assessment tightness in the soft tissue on either side of the sacrum, perienum, and attachments to the ischium PT-OP-K Range of Motion Start: 07/19/24 16:34 Freq: Status: Active Protocol: Document 07/17/24 13:00 [facility] (Rec: 07/19/24 16:39 [facility] [id number]) Lumbar Spine Range of Motion Lumbar Spine Active Testing Position Standing Flexion 50 ROM Limitations Soft Tissue Tightness Hip Goniometric Range of Motion Hip Right Testing Position Supine Flexion w/Knee Flexed 115 Extension 0 External Rotation 20 Left Hip ROM WFL No Testing Position Supine Flexion w/Knee Flexed 115 Extension 5 External Rotation 20 Comments piriformis stretch is difficult and Tami describes tightness with hip ER Hip ROM Limitations Hip ROM Limitations Soft Tissue Tightness Comments radiation induced tightness throughout the pelvis limited hip ROM PT-OP-Q Treatments Start: 07/17/24 10:42 Freq: Status: Active Protocol: Document 08/14/24 13:00 [facility] (Rec: 08/14/24 16:19 [facility] [id number]) Manual Therapy Treatment Soft Tissue Mobilization gluteal and sacral MFR techniques Mobilization Type Myofascial Release Intensity/Depth Moderate Body Position Prone Comments worked the fascial tissue on either side of the sacrum, left greater than right side tightness Manual Techniques manual hip ER/IR Body Position Prone Comments gentle stretch into hip IR/ER B kinesiotaping over the L5/S1 Body Position Prone Comments kinesiotape was used to decrease swelling over the L5- S1 region in a star pattern PT-OP-T Assessment and Plan Start: 07/17/24 10:42 Freq: Status: Active Protocol: Document 08/14/24 13:00 [facility] (Rec: 08/14/24 16:19 [facility] [id number]) Physical Therapy Assessment Assessment Summary Assessment Tami is doing really well and she is noting overall a decrease in stiffness. She notes she has cut out sugar as well and she feels this is helping her Physical Therapy Plan Frequency and Duration Frequency of Treatment 2x/Week Duration of treatment (weeks) 12 Plan of Care Start Date 07/17/24 Plan of Care End Date 10/09/24 Therapeutic Interventions Therapeutic Interventions Home Exercise Program,Manual Therapy,Patient/Caregiver Education,Self-Care/Home Management,Soft Tissue Mobilization,Therapeutic Exercises Next Visit Focus/Plan Next Note Type Treatment Note Next Visit Plan continue with MFR for the left side of the pelvic floor and adductors, work along the sacrum on gluteal release, check in with how Tami did with the tape to decrease inflammation next visit
--- NOTE | 2024-08-21 16:42 | PT.OTN ---
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, unspecified (08/21/24) Other specified disorders of muscle (08/21/24) Other reduced mobility (08/21/24) Physical Therapy Treatment Note PT-OP-A Visit Information Start: 07/17/24 10:42 Freq: Status: Active Protocol: Document 08/21/24 16:34 [facility] (Rec: 08/21/24 16:41 [facility] [id number]) Out-Patient Physical Therapy Visit Information Visit Information Visit Type Treatment Note Visit Start Time 09:45 Visit Stop Time 10:30 Visit Number 6 PT-OP-B Current Condition Start: 07/17/24 10:42 Freq: Status: Active Protocol: Document 07/17/24 13:00 [facility] (Rec: 07/17/24 13:52 [facility] [id number]) Current Condition History of Current Condition Onset Date 2 years ago pt underwent treatment for anal cancer including radation/chemo Current Complaints radiation induced rectal bleeding,rectal and pelvic floor tightness History of Current Condition pt has her two year appt s/p anal cancer coming up. She feels really locked up and stiff in her hips She isn't feeling the fecal incontinence has really resolved itself. In the am she needs to go to the bathroom right away. She does have slight bleeding from little tears with bowel movements due to radiation. She is experiencing a lot of cramping and any twisting or rotations with her hips feels really tight. She also had a episode of rectal bleeding after a chiropractic appt with work on her sacrum. She does get a cramp in the front of the smiley that wakes her up at night. 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 PT-OP-C Subjective Start: 07/17/24 10:42 Freq: Status: Active Protocol: Document 08/21/24 09:55 [facility] (Rec: 08/21/24 10:43 [facility] [id number]) OP-PT Subjective Patient Comments Patient Comments pt has been going to the gym and has been feeling really good she does feel tight in the left lateral hip with the hip abduction machine Patient Reported Progress Improving PT-OP-F Manual Assessment Start: 07/17/24 10:42 Freq: Status: Active Protocol: Document 07/17/24 13:00 [facility] (Rec: 07/19/24 16:36 [facility] [id number]) Manual Assessments Soft Tissue Assessment Soft Tissue Mobility Assessment tightness in the soft tissue on either side of the sacrum, perienum, and attachments to the ischium PT-OP-K Range of Motion Start: 07/19/24 16:34 Freq: Status: Active Protocol: Document 07/17/24 13:00 [facility] (Rec: 07/19/24 16:39 [facility] [id number]) Lumbar Spine Range of Motion Lumbar Spine Active Testing Position Standing Flexion 50 ROM Limitations Soft Tissue Tightness Hip Goniometric Range of Motion Hip Right Testing Position Supine Flexion w/Knee Flexed 115 Extension 0 External Rotation 20 Left Hip ROM WFL No Testing Position Supine Flexion w/Knee Flexed 115 Extension 5 External Rotation 20 Comments piriformis stretch is difficult and Tami describes tightness with hip ER Hip ROM Limitations Hip ROM Limitations Soft Tissue Tightness Comments radiation induced tightness throughout the pelvis limited hip ROM PT-OP-Q Treatments Start: 07/17/24 10:42 Freq: Status: Active Protocol: Document 08/21/24 16:34 [facility] (Rec: 08/21/24 16:41 [facility] [id number]) Manual Therapy Treatment Soft Tissue Mobilization quad MFR Comments left greater than right side quad tightness Joint Mobilizations hip MWM with manual strap Joint B hip joints Direction hip flexion with lateral glide , IR/ER with lateral glide Comments worked both left and right side but left side much tighter into hip ER Manual Techniques manual hamstring and ITB stretch Comments hold 1-2 min bilateral, left greater than right sided hamstring tightness PT-OP-T Assessment and Plan Start: 07/17/24 10:42 Freq: Status: Active Protocol: Document 08/21/24 16:34 [facility] (Rec: 08/21/24 16:41 [facility] [id number]) Physical Therapy Assessment Goals 3 Impairment decreased lumbar and hip ROM s /p radiation therapy Short Term Goal (STG) Tami is educated in a home stretching program for the hips, low back, and pelvis STG Duration 4 weeks Assisted Goal (LTG) With manual therapy work to address fascial restrictions and tightness Rach is able to return to WFL for her lumbar and hip ROM LTG Duration 12 weeks 2 Impairment pt is now sitting for work and presents with tightness in the hip flexors and hip ER bilaterally Short Term Goal (STG) Tami is educated in ergonomic set up including rest breaks to get up and stretch STG Duration 4 weeks Screen Maker Goal (LTG) tami presents with improved mobility of the hip musculature and is implementing her stretches into her daily routine LTG Duration 12 weeks 1 Impairment radiation induced myofascial restrictions in the low back, abdomen and pelvis limiting Tami's ability to engage in her recreational activities such as yoga Assisted Goal (LTG) Tami is able to return to recreational activities such as yoga and feels overall mobility in her pelvis, abdomen, and low back LTG Duration 12 weeks Assessment Summary Assessment tami notes she can feel the left side more than the right hip mobilizations. She notes good relief with manual therapy techniques and is now able to work out at the pool. She is making good progress and is feeling more mobile and stronger Physical Therapy Plan Frequency and Duration Frequency of Treatment 2x/Week Duration of treatment (weeks) 12 Plan of Care Start Date 07/17/24 Plan of Care End Date 10/09/24 Therapeutic Interventions Therapeutic Interventions Home Exercise Program,Manual Therapy,Patient/Caregiver Education,Self-Care/Home Management,Soft Tissue Mobilization,Therapeutic Exercises Next Visit Focus/Plan Next Note Type Treatment Note Next Visit Plan continue with MFR for the left side of the pelvic floor and adductors, work along the sacrum on gluteal release, check in with how Tami did with manual therapy techniques for the hips
--- NOTE | 2024-08-29 11:47 | PT.OTN ---
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, unspecified (08/29/24) Other specified disorders of muscle (08/29/24) Other reduced mobility (08/29/24) Physical Therapy Treatment Note PT-OP-A Visit Information Start: 07/17/24 10:42 Freq: Status: Active Protocol: Document 08/29/24 10:45 [facility] (Rec: 08/29/24 11:46 [facility] [id number]) Out-Patient Physical Therapy Visit Information Visit Information Visit Type Treatment Note Visit Start Time 10:45 Visit Stop Time 11:30 Visit Number 7 PT-OP-B Current Condition Start: 07/17/24 10:42 Freq: Status: Active Protocol: Document 07/17/24 13:00 [facility] (Rec: 07/17/24 13:52 [facility] [id number]) Current Condition History of Current Condition Onset Date 2 years ago pt underwent treatment for anal cancer including radation/chemo Current Complaints radiation induced rectal bleeding,rectal and pelvic floor tightness History of Current Condition pt has her two year appt s/p anal cancer coming up. She feels really locked up and stiff in her hips She isn't feeling the fecal incontinence has really resolved itself. In the am she needs to go to the bathroom right away. She does have slight bleeding from little tears with bowel movements due to radiation. She is experiencing a lot of cramping and any twisting or rotations with her hips feels really tight. She also had a episode of rectal bleeding after a chiropractic appt with work on her sacrum. She does get a cramp in the front of the smiley that wakes her up at night. 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 PT-OP-C Subjective Start: 07/17/24 10:42 Freq: Status: Active Protocol: Document 08/29/24 10:45 [facility] (Rec: 08/29/24 11:46 [facility] [id number]) OP-PT Subjective Patient Comments Patient Comments went to the gym and the hip abduction machine is still tight for her left lateral hip . She also experienced a episode of rectal bleeding and pain for a few days. She thinks it is due to having a bigger bowel movement and that stretching the scar tissue causing bleeding. PT-OP-F Manual Assessment Start: 07/17/24 10:42 Freq: Status: Active Protocol: Document 07/17/24 13:00 [facility] (Rec: 07/19/24 16:36 [facility] [id number]) Manual Assessments Soft Tissue Assessment Soft Tissue Mobility Assessment tightness in the soft tissue on either side of the sacrum, perienum, and attachments to the ischium PT-OP-K Range of Motion Start: 07/19/24 16:34 Freq: Status: Active Protocol: Document 07/17/24 13:00 [facility] (Rec: 07/19/24 16:39 [facility] [id number]) Lumbar Spine Range of Motion Lumbar Spine Active Testing Position Standing Flexion 50 ROM Limitations Soft Tissue Tightness Hip Goniometric Range of Motion Hip Right Testing Position Supine Flexion w/Knee Flexed 115 Extension 0 External Rotation 20 Left Hip ROM WFL No Testing Position Supine Flexion w/Knee Flexed 115 Extension 5 External Rotation 20 Comments piriformis stretch is difficult and Tami describes tightness with hip ER Hip ROM Limitations Hip ROM Limitations Soft Tissue Tightness Comments radiation induced tightness throughout the pelvis limited hip ROM PT-OP-Q Treatments Start: 07/17/24 10:42 Freq: Status: Active Protocol: Document 08/29/24 10:45 [facility] (Rec: 08/29/24 11:46 [facility] [id number]) Manual Therapy Treatment Soft Tissue Mobilization obturator internus release Comments worked in left sidelying to release the obturator internus ITB release Intensity/Depth Moderate Body Position Sidelying quad MFR Intensity/Depth Moderate Body Position Sidelying Comments worked on releasing the left quad, worked in both sidelying and supine left adductor release Mobilization Type Myofascial Release Intensity/Depth Moderate Body Position Supine Comments MFR left adductors proximal attachment Manual Techniques manual iliopsoas stretch Body Location left iliopsoas Body Position jcarlos test Comments in jcarlos test position manual hamstring and ITB stretch Comments hold 1-2 min bilateral, left greater than right sided hamstring tightness manual hip ER/IR Body Position Prone Comments gentle stretch into hip IR/ER B PT-OP-T Assessment and Plan Start: 07/17/24 10:42 Freq: Status: Active Protocol: Document 08/29/24 10:45 [facility] (Rec: 08/29/24 11:46 [facility] [id number]) Physical Therapy Assessment Assessment Summary Assessment I talked to Tami today about using the pelvic wand rectaly to help release the scar tissue in the rectum. I worked on releasing the left obturator internus and ITB/ quads today as well Physical Therapy Plan Frequency and Duration Frequency of Treatment 2x/Week Duration of treatment (weeks) 12 Plan of Care Start Date 07/17/24 Plan of Care End Date 10/09/24 Therapeutic Interventions Therapeutic Interventions Home Exercise Program,Manual Therapy,Patient/Caregiver Education,Self-Care/Home Management,Soft Tissue Mobilization,Therapeutic Exercises Next Visit Focus/Plan Next Note Type Treatment Note Next Visit Plan reassess the left wall of the levator ani for tension next visit
--- NOTE | 2024-09-04 16:46 | PT.OTN ---
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, unspecified (09/04/24) Other specified disorders of muscle (09/04/24) Other reduced mobility (09/04/24) Physical Therapy Treatment Note PT-OP-A Visit Information Start: 07/17/24 10:42 Freq: Status: Active Protocol: Document 09/04/24 14:32 [facility] (Rec: 09/04/24 14:43 [facility] [id number]) Out-Patient Physical Therapy Visit Information Visit Information Visit Type Treatment Note Visit Start Time 14:33 Visit Stop Time 15:15 Visit Number 8 PT-OP-B Current Condition Start: 07/17/24 10:42 Freq: Status: Active Protocol: Document 07/17/24 13:00 [facility] (Rec: 07/17/24 13:52 [facility] [id number]) Current Condition History of Current Condition Onset Date 2 years ago pt underwent treatment for anal cancer including radation/chemo Current Complaints radiation induced rectal bleeding,rectal and pelvic floor tightness History of Current Condition pt has her two year appt s/p anal cancer coming up. She feels really locked up and stiff in her hips She isn't feeling the fecal incontinence has really resolved itself. In the am she needs to go to the bathroom right away. She does have slight bleeding from little tears with bowel movements due to radiation. She is experiencing a lot of cramping and any twisting or rotations with her hips feels really tight. She also had a episode of rectal bleeding after a chiropractic appt with work on her sacrum. She does get a cramp in the front of the smiley that wakes her up at night. 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 PT-OP-C Subjective Start: 07/17/24 10:42 Freq: Status: Active Protocol: Document 09/04/24 14:32 [facility] (Rec: 09/04/24 14:43 [facility] [id number]) OP-PT Subjective Patient Comments Patient Comments she is having pain when she goes to the bathroom for bowel movements. OVer the last month to month and a half there has been more pain going to the bathroom. PT-OP-F Manual Assessment Start: 07/17/24 10:42 Freq: Status: Active Protocol: Document 07/17/24 13:00 [facility] (Rec: 07/19/24 16:36 [facility] [id number]) Manual Assessments Soft Tissue Assessment Soft Tissue Mobility Assessment tightness in the soft tissue on either side of the sacrum, perienum, and attachments to the ischium PT-OP-K Range of Motion Start: 07/19/24 16:34 Freq: Status: Active Protocol: Document 07/17/24 13:00 [facility] (Rec: 07/19/24 16:39 [facility] [id number]) Lumbar Spine Range of Motion Lumbar Spine Active Testing Position Standing Flexion 50 ROM Limitations Soft Tissue Tightness Hip Goniometric Range of Motion Hip Right Testing Position Supine Flexion w/Knee Flexed 115 Extension 0 External Rotation 20 Left Hip ROM WFL No Testing Position Supine Flexion w/Knee Flexed 115 Extension 5 External Rotation 20 Comments piriformis stretch is difficult and Tami describes tightness with hip ER Hip ROM Limitations Hip ROM Limitations Soft Tissue Tightness Comments radiation induced tightness throughout the pelvis limited hip ROM PT-OP-Q Treatments Start: 07/17/24 10:42 Freq: Status: Active Protocol: Document 09/04/24 14:30 [facility] (Rec: 09/04/24 16:46 [facility] [id number]) Manual Therapy Treatment Soft Tissue Mobilization MFR over the left side of the abdomen for the descending colon Body Location abdominal wall Comments Tightness noted on the left side especially the left lateral pelvic wall. Tami was educated on fascial release here. left transverse perineal release Mobilization Type Myofascial Release Body Position Hooklying left adductor release Mobilization Type Myofascial Release Intensity/Depth Moderate Body Position Supine Comments MFR left adductors proximal attachment fasical release of the left side of the levator ani coccygeus and illiococcygeus Mobilization Type Myofascial Release Intensity/Depth Moderate Body Position Hooklying Comments left side of the coccygeus and illiococcygeus fascial release on the left side. The levator ani was assessed today and it is the left side that is guarded and tight. No tenderness or tightness on the right side of the levator ani PT-OP-T Assessment and Plan Start: 07/17/24 10:42 Freq: Status: Active Protocol: Document 09/04/24 14:30 [facility] (Rec: 09/04/24 16:46 [facility] [id number]) Physical Therapy Assessment Goals 3 Impairment decreased lumbar and hip ROM s /p radiation therapy Short Term Goal (STG) Tami is educated in a home stretching program for the hips, low back, and pelvis goal met STG Duration 4 weeks Fpc Goal (LTG) With manual therapy work to address fascial restrictions and tightness Rach is able to return to WFL for her lumbar and hip ROM excellent progress LTG Duration 12 weeks 2 Impairment pt is now sitting for work and presents with tightness in the hip flexors and hip ER bilaterally Short Term Goal (STG) Tami is educated in ergonomic set up including rest breaks to get up and stretch goal met STG Duration 4 weeks Fpc Goal (LTG) tami presents with improved mobility of the hip musculature and is implamenting her stretches into her daily routine goal met LTG Duration 12 weeks 1 Impairment radiation induced myofascial restrictions in the low back, abdomen and pelvis limiting Tami's ability to engage in her recreational activites such as yoga Inside Sales Advisor Goal (LTG) tami is able to return to recreational activities such as yoga and feels overall mobility in her pelvis, abdomen, and low back excellent progress and Tami is now in a exercise program at the pool and feeling good with her program LTG Duration 12 weeks Assessment Summary Assessment Tami is doing better overall with hip mobility. I did check the left lateral wall of the pelvic floor and it was tight initially. With pelvic floor contract and relax and manual therapy work it did soften. Tami was given info on a pelvic wand for home and I feel this may be beneficial for her. She is experiencing rectal pain with bowel movements and the pelvic wand can also be used via the rectum to help reduce scar tissue. At this point Tami feels Ind with her home program and is now exercises at the gym. She will be discharged to a [facility] Physical Therapy Plan Discharge Physical Therapy Discharge Reasons Goals Met Discharge Comments Tami has progressed well with hip mobility and is working on yoga and exercise daily.
== END 2024-09-14 09:41 | disposition home or self-care (01) ==
LOC: PHYS 14:30
PROVIDERS: Family Provider Physician Assistant; PCP Physician Assistant; Referring Provider Physician Assistant; Visit Provider Physician Assistant
DX: C21.0 Malignant neoplasm of anus, unspecified (principal); M62.89 Other specified disorders of muscle; L59.9 Disorder of the skin and subcutaneous tissue related to radiation, unspecified; Z74.09 Other reduced mobility
CPT/HCPCS: 97110; 97140; 97161

== ENCOUNTER → 2024-11-21 09:30 | Outpatient (CLI) | payer MEDICARE, OTHER, SELFPAY ==
[2022-11-23 19:36] VITALS: BMI 23.4
--- NOTE | 2024-11-21 09:33 | DI.RAD.S_ITS ---
PROCEDURE: XR KNEE LT 2V INDICATIONS: Pain in left knee TECHNIQUE: 2 views of the knee were acquired. COMPARISON: None. FINDINGS: Mild knee joint effusion. Mild joint space calcifications, chondrocalcinosis commonly calcium pyrophosphate deposition or other cause. Mild degenerative changes with mild joint space narrowing and small osteophytes, Kellgren Bubba grade 2 medial, lateral and patellofemoral compartments. No radiographic evidence of displaced fracture, dislocation or high attenuation soft tissue foreign body. IMPRESSION: Degenerative changes, chondrocalcinosis, knee joint effusion. If symptoms persist or worsen, or there is high clinical suspicion of left knee abnormality, MRI could be performed. Dictated by: Rudi Irving M.D. on 11/21/2024 at 10:26 Approved by: Rudi Irving M.D. on 11/21/2024 at 10:28
== END ==
LOC: RAD 09:31
PROVIDERS: Family Provider Physician Assistant; PCP Physician Assistant; Referring Provider Physician Assistant; Visit Provider Physician Assistant
DX: M11.262 Other chondrocalcinosis, left knee (principal); M25.562 Pain in left knee; M25.462 Effusion, left knee
CPT/HCPCS: 73560

== ENCOUNTER → 2025-02-12 15:22 | Outpatient (CLI) | payer MEDICARE, OTHER, SELFPAY ==
[2022-11-23 19:36] VITALS: BMI 23.4
--- NOTE | 2025-02-12 15:24 | DI.MG.S_ITS ---
MM screening mammo BI: 02/12/2025. BI-RADS: 2 CLINICAL: 64-year old female for bilateral screening mammogram. Tyrer-Cuzick lifetime risk of 4.3%. No personal or first-degree family history of breast cancer. PRIOR EXAMS 12/28/2023, 12/24/2021, 06/11/2019, 09/16/2017. MAMMOGRAPHY TECHNIQUE: 2D and 3D (tomosynthesis) digital mammographic views obtained, with additional images as needed for full coverage. Current study was also evaluated with a Computer Aided Detection (CAD) system. DENSITY B. There are scattered areas of fibroglandular density. MAMMOGRAPHY FINDINGS Right: Benign-appearing post-surgical changes noted on the right. There are no suspicious masses, calcifications, or other findings in the breast. Left: No suspicious mass, asymmetry, microcalcification, or other abnormality seen. IMPRESSION: Right * No evidence of malignancy with benign findings. Left * No evidence of malignancy. RECOMMENDATIONS Bilateral * Annual screening mammography. OVERALL ASSESSMENT CATEGORY BI-RADS-2: Benign. The [employer] recommends annual screening mammography beginning at age 40 for women with average risk of breast cancer. ELECTRONICALLY SIGNED: Brea Rojas M.D. on 02/15/2025 at 12:43:13 AM PT Interpreting Station ID: [id number]
== END ==
LOC: MAMMO 15:23
PROVIDERS: Family Provider Physician Assistant; PCP Physician Assistant; Referring Provider Physician Assistant; Visit Provider Physician Assistant
DX: Z12.31 Encounter for screening mammogram for malignant neoplasm of breast (principal)
CPT/HCPCS: 77063; 77067

== ENCOUNTER 2025-04-18 11:30 | Outpatient (RCR) | payer MEDICARE, OTHER, SELFPAY ==
[2022-11-23 19:36] VITALS: BMI 23.4
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
--- NOTE | 2025-03-21 16:56 | PT.OTN ---
Current Diagnoses Unilateral primary osteoarthritis, left knee (03/21/25) Pain in left knee (03/21/25) Pelvic and perineal pain (03/21/25) Physical Therapy Treatment Note PT OP: Lower Back/Lower Extremity Start: 02/27/25 13:15 Freq: Status: Active Protocol: Document 03/21/25 10:47 [facility] (Rec: 03/21/25 10:58 [facility] [id number]) Out-Patient Physical Therapy Visit Information Visit Information Visit Type Treatment Note Visit Start Time 10:45 Visit Stop Time 11:30 Visit Number 5 OP-PT Subjective Patient Comments Patient Comments pt did do the bike at the pool this past week and only 10 min and the recumbant bike, she is wearing the brace . She is starting to be able to isolate her quad now. Feeling like she is starting to make progress Therapeutic Exercises Supine Exercises bridges Reps/Minutes 2 x 10 reps supine SLR Side left Reps/Minutes 3 x 10 reps piriformis stretch Reps/Minutes hold 1-2 min quad sets Supine Exercise Name hold and progressed to SLR ITB stretch Reps/Minutes with strap hold 30 sec to 1 min Comments manual stretch was performed today hamstring stretch Comments manual stretch performed today Sidelying Exercises clam shells Side bilateral Reps/Minutes 3x10 reps Standing Exercises standing hamstring flossing Reps/Minutes x 10 reps Comments working on full knee extension Manual Therapy Treatment Soft Tissue Mobilization iliopsoas release left side Mobilization Type Myofascial Release Intensity/Depth Moderate Body Position Supine quad release Body Position Supine Comments worked in supine as well as in jcarlos test position on releasing the left quad Physical Therapy Assessment Goals Three Impairment left sided quad and iliopsoas tightness with + jcarlos test Commercial Field Inspector Goal (LTG) Tami presents with improved mobility of the quad and iliopsoas and jcarlos test is negative LTG Duration 12 weeks 2 Impairment decreased functional strength of the left knee, pt is unable to squat or go into bharathi pose , walking increases pain Assisted Goal (LTG) With decreased pain Tami is able to perform a standing squat and bharathi pose. She is able to return to walking LTG Duration 12 weeks 1 Impairment left knee pain rated 5/10 Commercial Field Inspector Goal (LTG) Tami reports a overall reduction of pain to 1-2/10 LTG Duration 12 weeks Assessment Summary Assessment Tami demonstrated improved knee ROM with full extension today. She is activating her quad better now and I was able to progress her to SLR. Her quad is still really tight and I encouraged her to continue working on her quad stretches. I added in supine bridges and she could really feel the tightness in her quads Physical Therapy Plan Frequency and Duration Frequency of 2x/Week Treatment Duration of 12 treatment (weeks) Plan of Care Start 01/22/25 Date Plan of Care End 04/16/25 Date Next Visit Focus/Plan Next Note Type Treatment Note Next Visit Plan review new exercises of SLR and bridges and begin working on lateral steps with theraband for dynamic hip strengthening
--- NOTE | 2025-03-26 13:16 | PT.OTN ---
Current Diagnoses Unilateral primary osteoarthritis, left knee (03/26/25) Pain in left knee (03/26/25) Pelvic and perineal pain (03/26/25) Physical Therapy Treatment Note PT OP: Lower Back/Lower Extremity Start: 02/27/25 13:15 Freq: Status: Active Protocol: Document 03/26/25 10:46 [facility] (Rec: 03/26/25 10:51 [facility] [id number]) Out-Patient Physical Therapy Visit Information Visit Information Visit Type Treatment Note Visit Start Time 10:45 Visit Stop Time 11:30 Visit Number 6 OP-PT Subjective Patient Comments Patient Comments pt reports she had been feeling really good and then went to [employer] and lifted a heavy litter bag onto the bottom the cart and squatted all the way down and felt pain and woke up during the night and it was painful. She did take a pain killer last night. Cardio Equipment Recumbent Bicycle Resistance 2 Seat Position 5 min Gym Equipment Shuttle Recovery Bilateral Squats Resistance 50# Shuttle Recovery Stable Platform Reps/Time 3x10 reps Therapeutic Exercises Supine Exercises piriformis stretch Reps/Minutes hold 1-2 min ITB stretch Reps/Minutes with strap hold 30 sec to 1 min Comments manual stretch was performed today hamstring stretch Comments manual stretch performed today Standing Exercises standing calf stretch Standing Exercise used the GALDINO today for dynamic stretching of the calf Name Reps/Minutes 2 min Manual Therapy Treatment Soft Tissue Mobilization quad release Body Position Supine Comments worked in supine as well as in jcarlos test position on releasing the left quad Manual Techniques manual hamstring and quad release Reps/Duration 4 min Physical Therapy Assessment Goals Three Impairment left sided quad and iliopsoas tightness with + jcarlos test Chcf Goal (LTG) Tami presents with improved mobility of the quad and iliopsoas and jcarlos test is negative LTG Duration 12 weeks 2 Impairment decreased functional strength of the left knee, pt is unable to squat or go into bharathi pose , walking increases pain Chcf Goal (LTG) With decreased pain Tami is able to perform a standing squat and bharathi pose. She is able to return to walking LTG Duration 12 weeks 1 Impairment left knee pain rated 5/10 Visual And Stock Associate Goal (LTG) Tami reports a overall reduction of pain to 1-2/10 LTG Duration 12 weeks Assessment Summary Assessment I worked on Tami today with releasing tightness of the quad and hamstrings. I explained that a full squat with weight put a lot more stress on her knee than her knee could tolerate at this time. I did introduce the shuttle leg press with low resistance and she felt really good with the ROM for her knee and things felt better when she left. I did encourage her to ice her knee at home as well Physical Therapy Plan Frequency and Duration Frequency of 2x/Week Treatment Duration of 12 treatment (weeks) Plan of Care Start 01/22/25 Date Plan of Care End 04/16/25 Date Therapeutic Interventions Therapeutic Home Exercise Program,Joint Mobilizations,Manual Interventions Therapy,Neuromuscular Re-education,Patient/Caregiver Education,Self-Care/Home Management,Soft Tissue Mobilization,Therapeutic Exercises Next Visit Focus/Plan Next Note Type Treatment Note Next Visit Plan review new exercises of SLR and bridges and begin working on lateral steps with theraband for dynamic hip strengthening, continue with ther ex
--- NOTE | 2025-04-02 16:00 | PT.OTN ---
Current Diagnoses Unilateral primary osteoarthritis, left knee (04/02/25) Pain in left knee (04/02/25) Pelvic and perineal pain (04/02/25) Physical Therapy Treatment Note PT OP: Lower Back/Lower Extremity Start: 02/27/25 13:15 Freq: Status: Active Protocol: Document 04/02/25 09:54 [facility] (Rec: 04/02/25 10:34 [facility] [id number]) Out-Patient Physical Therapy Visit Information Visit Information Visit Type Treatment Note Visit Start Time 09:50 Visit Stop Time 10:32 Visit Number 7 OP-PT Subjective Patient Comments Patient Comments Pt is feeling tighter today in her knee as she has been painting and been in all sorts of positions. She is feeling frustrated but also knows she is still not living at home and has not been able to get into a regular schedule with the bike and exercise Cardio Equipment Recumbent Bicycle Resistance 2 Seat Position 5 min Gym Equipment Shuttle Recovery piriformis stretch on shuttle Reps/Time 1 rep each side with foot placement on shuttle Unilateral Squats Details right leg only Reps/Time 2 x 10 reps Bilateral Squats Resistance 50# Shuttle Recovery Stable Platform Reps/Time 3x10 reps Therapeutic Exercises Supine Exercises ITB stretch Reps/Minutes with strap hold 30 sec to 1 min Comments manual stretch was performed today hamstring stretch Comments manual stretch performed today Sitting Exercises seated TKEs Reps/Minutes 10 reps Manual Therapy Treatment Soft Tissue Mobilization iliopsoas release left side Mobilization Type Myofascial Release Intensity/Depth Moderate Body Position Supine quad release Body Position Supine Comments worked in supine as well as in jcarlos test position on releasing the left quad Physical Therapy Assessment Goals Three Impairment left sided quad and iliopsoas tightness with + jcarlos test Snf Goal (LTG) Tami presents with improved mobility of the quad and iliopsoas and jcarlos test is negative LTG Duration 12 weeks 2 Impairment decreased functional strength of the left knee, pt is unable to squat or go into hbarathi pose , walking increases pain Snf Goal (LTG) With decreased pain Tami is able to perform a standing squat and bharathi pose. She is able to return to walking LTG Duration 12 weeks 1 Impairment left knee pain rated 5/10 Artists' Model Goal (LTG) Tami reports a overall reduction of pain to 1-2/10 LTG Duration 12 weeks Assessment Summary Assessment I encouraged Tami to try and continue going to the pool to use the bike as her knee feels so much better afterwards. She also feels so much better after the shuttle leg press. She was advised to ice her knee top and bottom especially when she feels tight behind her knee. Physical Therapy Plan Frequency and Duration Frequency of 2x/Week Treatment Duration of 8 treatment (weeks) Plan of Care Start 04/02/25 Date Plan of Care End 05/28/25 Date Next Visit Focus/Plan Next Note Type Treatment Note Next Visit Plan Continue progressing strength and support for the left knee while also working on releasing tightness in her muscle tissue
--- NOTE | 2025-04-18 12:30 | PT.OTN ---
Current Diagnoses Unilateral primary osteoarthritis, left knee (04/18/25) Pain in left knee (04/18/25) Pelvic and perineal pain (04/18/25) Physical Therapy Treatment Note PT OP: Lower Back/Lower Extremity Start: 02/27/25 13:15 Freq: Status: Active Protocol: Document 04/18/25 11:31 [facility] (Rec: 04/18/25 11:38 [facility] [id number]) Out-Patient Physical Therapy Visit Information Visit Information Visit Type Treatment Note Visit Start Time 11:30 Visit Stop Time 12:15 Visit Number 8 OP-PT Subjective Patient Comments Patient Comments out of the last 14 days she has rode the bike 12 of them. THe pain is still there when she does certain things but she feels she is walking in a way that put less stress on the her knee Physical Therapy Assessment Goals Three Impairment left sided quad and iliopsoas tightness with + jcarlos test Mcfp Goal (LTG) Tami presents with improved mobility of the quad and iliopsoas and jcarlos test is negative LTG Duration 12 weeks 2 Impairment decreased functional strength of the left knee, pt is unable to squat or go into bharathi pose , walking increases pain Instrument Shop Supervisor Goal (LTG) With decreased pain Tami is able to perform a standing squat and bharathi pose. She is able to return to walking LTG Duration 12 weeks 1 Impairment left knee pain rated 5/10 Mcfp Goal (LTG) Tami reports a overall reduction of pain to 1-2/10 LTG Duration 12 weeks Assessment Summary Assessment tami is doing better, she still has intermittent right medial knee symptoms but has been able to be consistent with riding the bike. She is still waiting to get back into her house but she thinks she will be back in by May 17. She would like to hold on therapy until she gets back into her house and she has a visit scheduled 05/28/25 to recheck in with how she is doing with her knee Physical Therapy Plan Frequency and Duration Frequency of 2x/Week Treatment Duration of 8 treatment (weeks) Plan of Care Start 04/02/25 Date Plan of Care End 05/28/25 Date Next Visit Focus/Plan Next Note Type Treatment Note Next Visit Plan recheck in next visit to see how Tami is doing with medial knee pain, her exercises and if she would like to continue PT or DC to a I HEP
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
== END 2025-05-02 09:36 | disposition home or self-care (01) ==
LOC: PHYS 11:30
PROVIDERS: Family Provider Physician Assistant; PCP Physician Assistant; Referring Provider Orthopaedic Surgery Adult Reconstructive Orthopaedic Surgery; Visit Provider Orthopaedic Surgery Adult Reconstructive Orthopaedic Surgery
DX: M17.12 Unilateral primary osteoarthritis, left knee (principal); M25.562 Pain in left knee; R10.2 Pelvic and perineal pain
CPT/HCPCS: 97032; 97110; 97140; 97161